=== PATIENT | female | born 1985 | race Two or more races ===

== ENCOUNTER 2023-03-20 08:14 | Outpatient (OUT) | payer OTHER, SELFPAY ==
[2023-03-20 08:49] LABS: Estimated Average Glucose 200 mg/dL; Glycohemoglobin A1C 8.6 % (4.5-6.2)
== END 2023-03-20 08:15 ==
PROVIDERS: PCP Nurse Practitioner Family; Visit Provider Nurse Practitioner Family
DX: E11.9 Type 2 diabetes mellitus without complications (principal)
CPT/HCPCS: 36415; 83036

== ENCOUNTER 2023-07-17 16:56 | Emergency (ER) | payer OTHER, SELFPAY ==
[2023-07-17 16:59] VITALS: BP 149/86; PULSE 83; RESP 16; TEMP 37.1; O2SAT 98; BMI 33.5
--- NOTE | 2023-07-17 17:02 | XR_ITS ---
The [address] [address] Patient Name: CALEB LE MRN: [id number] date: 1985 Sex: F Assigned Patient Location: ED.MAIN Current Patient Location: ED.MAIN Accession/Order Number: [id number] Exam Date: 07/17/2023 17:05 Report Date: 07/17/2023 17:26 At the request of: CHERELLE CORTEZ Procedure: XR finger RT min 2V EXAM: XR finger RT min 2V HISTORY: Crush injury COMPARISON: None. TECHNIQUE: 3 views FINDINGS: No osseous lesion, fracture, dislocation or subluxation. Joint spaces are normal. No visualized effusion. No visualized soft tissue edema. XR/XR finger RT min 2V IMPRESSION: Normal x-rays Electronically authenticated by: TANJA KAMARA Date: 07/17/2023 17:26
--- NOTE | 2023-07-17 17:20 | ED.UPPEXIN1 ---
HPI - Extremity Injury (Upper) General Chief Complaint: Extremity Injury, Upper Stated Complaint: INJURED R HAND AT WORK Time Seen by Provider: 07/17/23 17:02 Source: patient Mode of arrival: walk-in Limitations: no limitations History of Present Illness HPI narrative: patient is a 38-year-old female who is right-hand dominant who presents to the emergency department for the evaluation of an injury to the right middle fingertip that occurred at 9 AM this morning at work. She states that she dropped a piece of machinery and her finger got caught between it and another object. She has developed bruising and swelling of the fat pad of the right middle fingertip. No swelling or bruising noted to the fingernail. No lacerations or abrasions. She is not concerned for . No medications were taken prior to arrival. Related Data Previous Rx's Medication Instructions Recorded naproxen sodium 550 mg tablet 550 mg PO BID PRN pain #10 tabs 07/17/23 Allergies Allergy/AdvReac Type Severity Reaction Status Date / Time erythromycin base AdvReac Intermediate Rash Verified 07/17/23 17:02 Review of Systems ROS Constitutional Denies: fever or chills Respiratory Denies: shortness of breath Gastrointestinal Denies: nausea or vomiting Musculoskeletal Denies: back pain Integumentary/Breast Denies: rash Neurological Denies: headache Hematologic/Lymphatic Denies: easy bruising [facility] Social History Smoking status: Never smoker Exam Narrative Exam Narrative: Gen.: Awake, alert, in no distress Head: Normocephalic, atraumatic ENT: Moist mucous membranes Respiratory: No respiratory distress Extremities: Moves extremities equally, right middle fingertip with ecchymosis and mild edema noted on the palmar aspect of the fingertip at the fat pad. Normal flexion and extension at the DIP and PIP joints. No subungual hematoma or fingernail injury noted. No abrasions or lacerations. Psych: Normal mood and affect Neuro: No focal neuro deficit Skin: Warm, dry, intact Constitutional Vital Signs, click to edit/add: Last Vital Signs Temp 98.8 F 07/17/23 16:59 Pulse 88 07/17/23 17:49 Resp 16 07/17/23 17:49 BP 138/90 07/17/23 17:49 Pulse Ox 99 10/07/23 17:49 O2 Del Method Room Air 07/17/23 17:49 Course Vital Signs Vital signs: Vital Signs Temperature 98.8 F 07/17/23 16:59 Pulse Rate 83 07/17/23 16:59 Respiratory Rate 16 07/17/23 16:59 Blood Pressure 149/86 H 07/17/23 16:59 Pulse Oximetry 98 07/17/23 16:59 Oxygen Delivery Method Room Air 07/17/23 16:59 Temperature 98.8 F 07/17/23 16:59 Pulse Rate 88 07/17/23 17:49 Respiratory Rate 16 07/17/23 17:49 Blood Pressure 138/90 07/17/23 17:49 Pulse Oximetry 99 07/17/23 17:49 Oxygen Delivery Method Room Air 07/17/23 17:49 MDM - Extremity Injury (Upper) MDM Narrative Medical decision making narrative: x-rays of the finger with no evidence of fracture or dislocation. Patient treated with NSAIDs in the Emergency Room. She is placed in a finger splint, she remains neurovascularly intact at discharge. Rest, ice, elevate. Follow-up with occupational health and return to the Emergency Room if symptoms change or worsen. Medical Records Attestation: I reviewed the patient's medical records. Imaging Data XR finger: Attestation: I personally reviewed and interpreted this imaging study as follows: My impression: no fracture, dislocation, soft tissue abnormality. Imaging reviewed by attending physician Discharge Plan Discharge Chief Complaint: Extremity Injury, Upper Clinical Impression: Contusion of finger of right hand, Crushing injury of finger of right hand Patient Disposition: Home, Self-Care Time of Disposition Decision: 17:24 Condition: Good Prescriptions / Home Meds: New naproxen sodium 550 mg tablet 550 mg PO BID PRN (Reason: pain) Qty: 10 0RF Instructions: Contusion in Adults (ED), Crush Injury (ED) Additional Instructions: Finger splint for 3-5 days as needed for comfort Stand Alone Forms: Portal Instructions Referrals: [facility] [Outside] - As soon as possible Discharge Date/Time: 07/17/23 17:51
[2023-07-17] MEDS: KETOROLAC TROMETHAMINE 10 MG TABLET PO (17:29)
[2023-07-17 17:49] VITALS: BP 138/90; PULSE 88; RESP 16; O2SAT 99
== END 2023-07-17 17:51 | disposition home or self-care (01) ==
PROVIDERS: Emergency Provider Emergency Medicine; PCP Nurse Practitioner Family
DX: S60.031A Contusion of right middle finger without damage to nail, initial encounter (principal); S67.192A Crushing injury of right middle finger, initial encounter; W23.0XXA Caught, crushed, jammed, or pinched between moving objects, initial encounter
CPT/HCPCS: 29130; 73140; 99284

== ENCOUNTER 2023-10-30 05:22 | Emergency (ER) | payer BC, SELFPAY ==
[2023-10-30 05:25] VITALS: BP 149/93; PULSE 87; RESP 18; TEMP 36.6; O2SAT 97; BMI 32.6
--- NOTE | 2023-10-30 05:35 | PC.NURSE ---
Pt complains of a persistent cough for the past 2 weeks, now is coughing up white-matthew phlegm for the past few days. Has not tried any OTC medications but tea and honey did not help. Covid and flu swab obtained. Lungs sound clear.
[2023-10-30 05:52] LABS: Influenza Virus A Antigen Negative; Influenza Virus B Antigen Negative; Internal Control Within Normal Limits; SARS-CoV-2 Ag NEGATIVE (NEGATIVE)
--- NOTE | 2023-10-30 06:04 | ED.URI1 ---
HPI - URI/Sore Throat General Chief Complaint: Upper Respiratory Infection Stated Complaint: CONGESTION, COUGH Time Seen by Provider: 10/30/23 05:24 Source: patient Limitations: no limitations History of Present Illness HPI Narrative: [age] female presents for two weeks of cough. She states she has had a lot of phlegm in her throat. No known fever. No vomiting or diarrhea. Related Data Home Medications Medication Instructions Recorded Confirmed metformin 500 mg tablet 500 mg PO BID 10/30/23 10/30/23 Previous Rx's Medication Instructions Recorded albuterol sulfate 90 mcg/actuation 2 inh inhalation Q4H PRN shortness 10/30/23 aerosol inhaler of breath or wheezing #8.5 grams benzonatate 100 mg capsule 100 mg PO TID PRN cough #20 caps 10/30/23 loratadine 5 mg-pseudoephedrine ER 1 tab PO Q12H PRN nasal congestion 10/30/23 120 mg tablet,extended #20 tabs release,12hr (Claritin-D 12 Hour) Allergies Allergy/AdvReac Type Severity Reaction Status Date / Time erythromycin base AdvReac Intermediate Rash Verified 10/30/23 05:27 Review of Systems ROS Narrative A ten point review of systems is negative except as noted above. PFSH PFS Social History Smoking status: Never smoker Exam Narrative Exam Narrative: Nurses note and vital signs reviewed and patient is not hypoxic. General: The patient appears well and in no apparent distress. Patient is resting comfortably on cart. Skin: Warm, dry, no pallor noted. There is no rash noted. Head: Normocephalic, atraumatic Eye: Normal conjunctiva, no drainage Ears, Nose, Mouth, and Throat: oral mucosa is moist. Nares patent. Cardiovascular: Regular Rate and Rhythm Respiratory: Patient is in no distress, no accessory muscle use, lungs are clear to auscultation, no wheezing, rales or rhonchi Back: non-tender GI: soft and nontender Musculoskeletal: The patient has no evidence of calf tenderness, no pitting edema, symmetrical pulses noted bilaterally Neurological: A&O, normal speech Psychiatric: Cooperative Constitutional Vital Signs, click to edit/add: Last Vital Signs Temp 97.8 F 10/30/23 05:25 Pulse 87 10/30/23 05:25 Resp 18 10/30/23 05:25 BP 149/93 H 10/30/23 05:25 Pulse Ox 97 10/30/23 05:25 O2 Del Method Room Air 10/30/23 05:25 Course Vital Signs Vital signs: Vital Signs Temperature 97.8 F 10/30/23 05:25 Pulse Rate 87 10/30/23 05:25 Respiratory Rate 18 10/30/23 05:25 Blood Pressure 149/93 H 10/30/23 05:25 Pulse Oximetry 97 10/30/23 05:25 Oxygen Delivery Method Room Air 10/30/23 05:25 Temperature 97.8 F 10/30/23 05:25 Pulse Rate 87 10/30/23 05:25 Respiratory Rate 18 10/30/23 05:25 Blood Pressure 149/93 H 10/30/23 05:25 Pulse Oximetry 97 10/30/23 05:25 Oxygen Delivery Method Room Air 10/30/23 05:25 MDM - URI/Sore Throat MDM Narrative Medical decision making narrative: Covid and influenza are negative and she'll be treated symptomatically. My clinical impression is that she has a viral upper respiratory infection. Antibiotic not indicated. Treatment diagnosis and follow-up were discussed with the patient. Differential Diagnosis Differential diagnosis: Likely upper respiratory infection, viral infection, influenza and other (Covid) Lab Data Attestation: I reviewed the patient's lab results. Labs: Lab Results 10/30/23 Range/Units 05:27 Influenza Type A Ag Negative Influenza Type B Ag Negative SARS-CoV-2 Ag (CV2AG) Negative (NEGATIVE) Discharge Plan Discharge Chief Complaint: Upper Respiratory Infection Clinical Impression: Upper respiratory infection Patient Disposition: Home, Self-Care Time of Disposition Decision: 06:03 Condition: Good Mode of Transportation: Private Vehicle Prescriptions / Home Meds: New benzonatate 100 mg capsule 100 mg PO TID PRN (Reason: cough) Qty: 20 0RF Claritin-D 12 Hour 5-120 mg tablet extended release 12 hr 1 tab PO Q12H PRN (Reason: nasal congestion) Qty: 20 0RF albuterol sulfate 90 mcg/actuation HFA aerosol inhaler 2 inh inhalation Q4H PRN (Reason: shortness of breath or wheezing) Qty: 8.5 0RF No Action metformin 500 mg tablet 500 mg PO BID Instructions: Upper Respiratory Infection (ED), Viral Syndrome (ED) Stand Alone Forms: Portal Instructions Referrals: JOHNSON KRAMER [Primary Care Provider] - 1 week
== END 2023-10-30 06:11 | disposition home or self-care (01) ==
PROVIDERS: Emergency Provider Emergency Medicine; PCP Nurse Practitioner Family
DX: J06.9 Acute upper respiratory infection, unspecified (principal); Z79.84 Long term (current) use of oral hypoglycemic drugs; Z20.822 Contact with and (suspected) exposure to COVID-19
CPT/HCPCS: 87804; 87811; 99283

== ENCOUNTER 2024-04-05 19:49 | Emergency (ER) | payer OTHER, SELFPAY ==
[2024-04-05 19:55] VITALS: BP 134/80; PULSE 91; TEMP 37; O2SAT 98; BMI 33.1
--- OUTSIDE RECORDS SUMMARY | 2024-04-05 19:56 | XMS_ITS | CCD ---
Author Organization [facility] Care Team Providers Care Supervisor Inspection Name Role Phone REQUEST, DR NONE LISTED Primary Care Unavaila ble PAY ., DR KONG Admitting Unavailable PAY ., DR KONG Attending Unavailable PAY ., DR KONG Consulting Unavailable NIA, JOHNSON Admitting Unavailable NIA, JOHNSON Attending Unavailable NIA, JOHNSON Primary Care Unavailable NIA, JOHNSON Consulting Unavailable NIA, JOHNSON Admitting Unavailable NIA, JOHNSON Attending Unavailable NIA, JOHNSON Primary Care Unavailable ADRI, PAVAN Admitting Unavailable ADRI, PAVAN Attending Unavailable NIA, JOHNSON Primary Care Unavailable ADRI, PAVAN Consulting Unavailable NIA, JOHNSON Admitting Unavailable NIA, JOHNSON Attending Unavailable NIA, JOHNSON Primary Care Unavailable NIA, JOHNSON Consulting Unavailable HOY ., DR GOLDMAN Admitting Unavailable HOY ., DR GOLDMAN Attending Unavailable NIA, JOHNSON Primary Care Unavailable HOY ., DR GOLDMAN Consulting Unavailable BRAD, CHARLIE Admitting Unavailable BRAD, CHARLIE Attending Unavailable REQUEST, NONE LISTED Primary Care Unavaila ble BRAD, CHARLIE Consulting Unavailable Unavailable Primary Care Provider Unavailabl e Allergies Allergy Classification Reported Allergen(s) Allergy Type Date of Onset Reaction(s) Facility (1 source) Erythromycin Drug Allergy 05-31-2013 [facility] Repository Problems Active Problems Problem Classification Problem Date Documented Da te Episodic/Chronic Acute bronchitis (1 source) Acute bronchitis due to other specified organisms; Translations: [ACUTE BRONCHITIS D/T SPEC ORGANISMS] Onset: 10-20-2022 Episodic Diabetes mellitus with complications (4 sources) Type 2 diabetes mellitus with hyperglycemia; Translations: [TYPE 2 DM W/HYPERGLYCEMIA] Onset: 08-19-2022 Chronic Diabetes mellitus without complication (4 sources) Type 2 diabetes mellitus without complications; Translations: [TYPE 2 DM WITHOUT COMPLICATIONS] Onset: 11-27-2022 Chronic Diabetes mellitus without complication (1 source) Other abnormal glucose; Translations: [OTHER ABNORMAL GLUCOSE] Onset: 12-02-2022 Episodic Essential hypertension (1 source) Essential (primary) hypertension; Translations: [ESSENTIAL PRIMARY HYPERTENSION] Onset: 08-21-2022 Chronic Nonspecific chest pain (4 sources) Other chest pain; Translations: [OTHER CHEST PAIN] Onset: 12-28-2022 Episodic Other screening for suspected conditions (not mental disorders or infectious disease) (4 sources) Encounter for screening for malignant neoplasm of cervix; Translations: [ENC SCREENING MALIG NEOPLASM CERV] Onset: 12-08-2022 Episodic Unclassified (3 sources) CONTACT W/AND (SUSP) EXPOS COVID-19; Translations: [CONTACT W/AND (SUSP) EXPOS COVID-19] Onset: 10-20-2022 Unclassified (1 source) PT NONCOMP OTH MED TX/REG UNS REASN; Translations: [PT NONCOMP OTH MED TX/REG UNS REASN] Onset: 08-21-2022 Past or Other Problems Problem Classification Problem Date Documented Da te Episodic/Chronic Anal and rectal conditions (4 sources) Other specified diseases of anus and rectum; Translations: [OTHER SPEC DISEASES ANUS AND RECTUM] Onset: 07-20-2022 Episodic Fluid and electrolyte disorders (1 source) Dehydration; Translations: [DEHYDRATION] Onset: 08-21-2022 Episodic Other aftercare (1 source) 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 . Normal [facility] Comment on above: Result Comment: Perf ormed at: WB Performed By: #### [id number] #### [facility] [address] [place] [address] Dr. Isaías Plunkett Age Gdln ACOG Testing 30-65 Normal [facility] Comment on above: Performed By: #### [id number] #### [facility] [address] [address] [address] Isaías Plunkett DIAGNOSIS: Comment Normal [facility] Comment on above: Result Comment: NEGA TIVE FOR INTRAEPITHELIAL LESION OR MALIGNANCY. Performed at: WB Performed By: #### [id number] #### [facility] [address] [place] [address] Dr. Isaías Plunkett HPV Aptima Negative Normal Negative [facility] Comment on above: Result Comment: This nucleic acid amplification test detects fourteen high-risk HPV types (16,18,31,33,35,39,45,51,52,56,58,59,66,68) without differentiation. Performed at: =G Performed By: #### [id number] #### [facility] [address] [place] [address] Dr. Isaías Plunkett HPV Genotype Reflex Comment Normal [facility] Comment on above: Result Comment: Crit eria not met, HPV Genotype not performed. Performed at: WB Performed By: #### [id number] #### [facility] [address] [place] [address] Dr. Isaías Plunkett Methodology: Comment Normal [facility] Comment on above: Result Comment: This liquid based ThinPrep(R) pap test was screened with the use of an image guided system. Performed at: WB Performed By: #### [id number] #### [facility] [address] [place] [address] Dr. Isaías Plunkett Note: Comment Normal [facility] Comment on above: Result Comment: The Pap smear is a screening test designed to aid in the detection of premalignant and malignant conditions of the uterine cervix. It is not a diagnostic procedure and should not be used as the sole means of detecting cervical cancer. Both false-positive and false-negative reports do occur. . Performed at: WB Performed By: #### [id number] #### [facility] [address] [place] [address] Dr. Isaías Plunkett Performed by: Comment Normal [facility] Comment on above: Result Comment: Dillon Gonsalez, Rn Case Manager (ASCP) Performed at: WB Performed By: #### [id number] #### [facility] [address] [place] [address] Dr. Isaías Plunkett Specimen adequacy: Comment Normal [facility] Comment on above: Result Comment: Sati sfactory for evaluation. Endocervical and/or squamous metaplastic cells (endocervical component) are present. Performed at: WB Performed By: #### [id number] #### [facility] [address] [place] [address] Dr. Isaías Plunkett GLYCOHEMOGLOBIN A1Con 2022 ADA RECOMMENDATION SEE BELOW Normal [facility] Comment on above: Result Comment: ADA RECOMMENDED LIMIT 4.0 - 6.0 ADA THERAPEUTIC TARGET < 7.0 ACTION SUGGESTED > 7.0 Performed By: #### P HVEN #### [facility] [address] [place] [address] Dr. Isaías Plunkett Glucose [Mass/Vol] 197 mg/dL Normal [facility] Comment on above: Performed By: #### P HVEN #### [facility] [address] [place] [address] Dr. Isaías Plunkett HbA1c (Bld) [Mass fraction] 8.5 % Critically high 4.5-6.2 [facility] Comment on above: Performed By: #### P HVEN #### [facility] [address] [place] [address] Dr. Isaías Plunkett Covid-19 PCR ([facility])on SARS-CoV-2 (COVID-19) RNA CHIOMA+probe Ql (Unsp spec) Not detected Normal NOT DETECTED [facility] Comment on above: Result Comment: When diagnostic testing is negative, the possibility of a false negative should be considered in the context of a patient's recent exposures and the presence of clinical signs and symptoms consistent with SARS-CoV-2. This test is not yet approved or cleared by the [place] FDA. When there are no FDA-approved or cleared tests available, and other criteria are met, FDA can make tests available under an emergency access mechanism called an Emergency Use Authorization (EUA). The EUA for this test is supported by the [place] of Health and Human Service's declaration that circumstances exist to justify the emergency use of in vitro diagnostics for the detection and/or diagnosis of the virus that causes COVID-19. This EUA will remain in effect for the duration of the COVID-19 declaration justifying emergency of IVDs, unless it is terminated or revoked by the FDA (after which the test may no longer be used). Performed By: #### P HVEN #### [facility] [address] [place] [address] Dr. Isaías Plunkett INFLUENZA A AND B AGon 10-19 INFLUANE SEE BELOW Normal [facility] Comment on above: Result Comment: Nega tive for Flu A protein angiten. Infection due to Flu A cannot be ruled out. Flu A angiten in the sample may be below the detection limit of the test. Performed By: #### I NFLUAB #### [facility] [address] [place] [address] Dr. Isaías Plunkett INFLUBNEG SEE BELOW Normal [facility] Comment on above: Result Comment: Nega tive for Flu B protein antigen. Infection due to Flu B cannot be ruled out. Flu B antigen in the sample may be below the detection limit of the test. Performed By: #### I NFLUAB #### [facility] [address] [place] [address] Dr. Isaías Plunkett INFLUENZA A AG Negative Normal NEGATIVE SEE COMMENT [facility] Comment on above: Performed By: #### I NFLUAB #### [facility] [address] [place] [address] Dr. Isaías Plunkett INFLUENZA B AG Negative Normal NEGATIVE SEE COMMENT [facility] Comment on above: Performed By: #### I NFLUAB #### [facility] [address] [place] [address] Dr. Isaías Plunkett INSULINon 09-10-2022 Insulin 36.6 uIU/mL Critically high 2.6-24.9 [facility] Comment on above: Performed By: #### [id number] #### [facility] [address] [place] [address] Dr. Isaías Plunkett CBC AUTO DIFFon 09-09-2022 BASO # 0.0 103/ul Normal 0.0-0.1 [facility] Comment on above: Performed By: #### C BC #### [facility] [address] [place] [address] Dr. Isaías Plunkett Basophils/100 WBC (Bld) 0.4 % Normal 0.2-2.0 [facility] Comment on above: Performed By: #### C BC #### [facility] [address] [place] [address] Dr. Isaías Plunkett EO # 0.2 103/ul Normal 0.0-0.7 [facility] Comment on above: Performed By: #### C BC #### [facility] [address] [place] [address] Dr. Isaías Plunkett Eosinophils/100 WBC (Bld) 2.0 % Normal 0.9-7.0 [facility] Comment on above: Performed By: #### C BC #### [facility] [address] [place] [address] Dr. Isaías Plunkett Erythrocyte distribution width (RBC) [Ratio] 13.2 % Normal 11.0-15.0 [facility] Comment on above: Performed By: #### C BC #### [facility] [address] [place] [address] Dr. Isaías Plunkett Hematocrit (Bld) [Volume fraction] 39.0 % Normal 36.0-48.0 [facility] Comment on above: Performed By: #### C BC #### [facility] [address] [place] [address] Dr. Isaías Plunkett Hemoglobin (Bld) [Mass/Vol] 12.9 g/dL Normal 12.0-16.0 [facility] Comment on above: Performed By: #### C BC #### [facility] [address] [place] [address] Dr. Isaías Plunkett IG # 0.02 10e3/ul Normal 0.00-0.03 [facility] Comment on above: Performed By: #### C BC #### [facility] [address] [place] [address] Dr. Isaías Plunkett IG % 0.2 % Normal 0.0-0.5 [facility] Comment on above: Performed By: #### C BC #### [facility] [address] [place] [address] Dr. Isaías Plunektt LYMPH # 3.2 103/ul Normal 1.2-3.8 [facility] Comment on above: Performed By: #### C BC #### [facility] [address] [place] [address] Dr. Isaías Plunkett Lymphocytes/100 WBC (Bld) 40.0 % Normal 20.5-60.0 [facility] Comment on above: Performed By: #### C BC #### [facility] [address] [place] [address] Dr. Isaías Plunkett MANUAL DIFF REQ NO Normal [facility] Comment on above: Performed By: #### C BC #### [facility] [address] [place] [address] Dr. Isaías Plunkett MCH (RBC) [Entitic mass] 27.1 pg Normal 26.7-34.0 [facility] Comment on above: Performed By: #### C BC #### [facility] [address] [place] [address] Dr. Isaías Plunkett MCHC (RBC) [Mass/Vol] 33.1 g/dL Normal 29.9-35.2 [facility] Comment on above: Performed By: #### C BC #### [facility] [address] [place] [address] Dr. Isaías Plunkett MCV (RBC) [Entitic vol] 81.9 fL Normal 81.0-99.0 [facility] Comment on above: Performed By: #### C BC #### [facility] [address] [place] [address] Dr. Isaías Plunkett MONO # 0.5 103/ul Normal 0.3-0.8 [facility] Comment on above: Performed By: #### C BC #### [facility] [address] [place] [address] Dr. Isaías Plunkett Monocytes/100 WBC (Bld) 6.2 % Normal 1.7-12.0 [facility] Comment on above: Performed By: #### C BC #### [facility] [address] [place] [address] Dr. Isaías Plunkett NEUT # 4.1 103/ul Normal 1.4-6.5 [facility] Comment on above: Performed By: #### C BC #### [facility] [address] [place] [address] Dr. Isaías Plunkett Neutrophils/100 WBC (Bld) 51.2 % Normal 43.0-75.0 [facility] Comment on above: Performed By: #### C BC #### [facility] [address] [place] [address] Dr. Isaías Plunkett Platelet mean volume (Bld) [Entitic vol] 9.5 fL Normal 9.5-13.5 [facility] Comment on above: Performed By: #### C BC #### [facility] [address] [place] [address] Dr. Isaías Plunkett PLT 275 103/ul Normal 150-450 [facility] Comment on above: Performed By: #### C BC #### [facility] [address] [place] [address] Dr. Isaías Plunkett RBC 4.76 106/ul Normal 4.20-5.40 [facility] Comment on above: Performed By: #### C BC #### [facility] [address] [place] [address] Dr. Isaías Plunkett WBC 8.1 103/ul Normal 4.0-11.0 [facility] Comment on above: Performed By: #### C BC #### [facility] [address] [place] [address] Dr. Isaías Plunkett FREE THYROXINE INDEX T7on FTI 2.05 Normal 1.30-4.50 [facility] Comment on above: Performed By: #### P HVEN #### [facility] [address] [place] [address] Dr. Isaías Plunkett T3U 31.0 % Normal 30.0-39.0 [facility] Comment on above: Performed By: #### P HVEN #### [facility] [address] [place] [address] Dr. Isaías Plunkett T4 [Mass/Vol] 6.60 ug/dL Normal 4.80-13.90 [facility] Comment on above: Performed By: #### P HVEN #### [facility] [address] [place] [address] Dr. Isaías Plunkett GLYCOHEMOGLOBIN A1Con 2021 ADA RECOMMENDATION SEE BELOW Normal [facility] Comment on above: Result Comment: ADA RECOMMENDED LIMIT 4.0 - 6.0 ADA THERAPEUTIC TARGET < 7.0 ACTION SUGGESTED > 7.0 Performed By: #### A 1C #### [facility] [address] [place] [address] Dr. Isaías Plunkett Glucose [Mass/Vol] 226 mg/dL Normal [facility] Comment on above: Performed By: #### A 1C #### [facility] [address] [place] [address] Dr. Isaías Plunkett HbA1c (Bld) [Mass fraction] 9.5 % Critically high 4.5-6.2 [facility] Comment on above: Performed By: #### A 1C #### [facility] [address] [place] [address] Dr. Isaías Plunkett IRONon 09-09-2022 Iron [Mass/Vol] 42.0 ug/dL Critically low 50.0-170.0 [facility] Comment on above: Performed By: #### P HVEN #### [facility] [address] [place] [address] Dr. Isaías Plunkett LIPID PROFILEon 09-09-2022 CHOL-HDL RATIO NORM SEE BELOW Normal [facility] Comment on above: Result Comment: 3.3 - 4.4 LOW RISK 4.4 - 7.1 AVERAGE RISK 7.1 - 11.0 MODERATE RISK >11.0 HIGH RISK Performed By: #### P HVEN #### [facility] [address] [place] [address] Dr. Isaías Plunkett Cholesterol [Mass/Vol] 199 mg/dL Normal <=200 [facility] Comment on above: Performed By: #### P HVEN #### [facility] [address] [place] [address] Dr. Isaías Plunkett Cholesterol in HDL [Mass/Vol] 38 mg/dL Critically low 40-60 [facility] Comment on above: Performed By: #### P HVEN #### [facility] [address] [address] [address] Isaías Plunkett Cholesterol in LDL [Mass/Vol] 124.8 mg/dL Normal [facility] Comment on above: Performed By: #### P HVEN #### [facility] [address] [address] [address] Isaías Plunkett Cholesterol.total/Cho lesterol in HDL [Mass ratio] 5.2 {ratio} Normal [facility] Comment on above: Performed By: #### P HVEN #### [facility] [address] [address] [address] Isaías Plunkett HDL NORMAL > or = 60 mg/dl - LO W CARDIOVASCULAR RISK <40 mg/dl - HIGH CARDIOVASCULAR RISK Normal [facility] Comment on above: Performed By: #### P HVEN #### [facility] [address] [address] [address] Isaías Plunkett LDL CALC NORMAL SEE BELOW Normal [facility] Comment on above: Result Comment: <100 mg/dl OPTIMAL 100 - 129 mg/dl NEAR OR ABOVE OPTIMAL 130 - 159 mg/dl BORDERLINE HIGH 160 - 189 mg/dl HIGH >190 mg/dl VERY HIGH Performed By: #### P HVEN #### [facility] [address] [address] [address] Isaías Plunkett Triglyceride [Mass/Vol] 181 mg/dL Critically high <=150 [facility] Comment on above: Performed By: #### P HVEN #### [facility] [address] [address] [address] Isaías Plunkett VLDL CALC 36.2 mg/dL Normal [facility] Comment on above: Performed By: #### P HVEN #### [facility] [address] [address] [address] Isaías Plunkett PROF 14(COMP METB)on 022 Albumin [Mass/Vol] 3.6 g/dL Normal 3.4-5.0 [facility] Comment on above: Performed By: #### P HVEN #### [facility] [address] [address] [address] Isaías Plunkett Albumin/Globulin [Mass ratio] 0.9 {ratio} Normal [facility] Comment on above: Performed By: #### P HVEN #### [facility] [address] [address] [address] Isaías Plunkett ALP [Catalytic activity/Vol] 54 U/L Normal 46-116 [facility] Comment on above: Performed By: #### P HVEN #### [facility] [address] [address] [address] Isaías Plunkett ALT [Catalytic activity/Vol] 64 U/L Critically high 14-59 [facility] Comment on above: Performed By: #### P HVEN #### [facility] [address] [place] [address] Dr. Isaías Plunkett Anion gap [Moles/Vol] 13.0 mmol/L Normal [facility] Comment on above: Performed By: #### P HVEN #### [facility] [address] [place] [address] Dr. Isaías Plunkett AST [Catalytic activity/Vol] 17 U/L Normal 15-37 [facility] Comment on above: Performed By: #### P HVEN #### [facility] [address] [place] [address] Dr. Isaías Plunkett Bilirubin [Mass/Vol] 0.2 mg/dL Normal 0.2-1.0 [facility] Comment on above: Performed By: #### P HVEN #### [facility] [address] [address] [address] Isaías Plunkett Calcium [Mass/Vol] 8.8 mg/dL Normal 8.5-10.1 [facility] Comment on above: Performed By: #### P HVEN #### [facility] [address] [place] [address] Dr. Isaías Plunkett Chloride [Moles/Vol] 100 mmol/L Normal 98-107 [facility] Comment on above: Performed By: #### P HVEN #### [facility] [address] [address] [address] Isaías Plunkett CO2 [Moles/Vol] 26.2 mmol/L Normal 21.0-32.0 [facility] Comment on above: Performed By: #### P HVEN #### [facility] [address] [place] [address] Dr. Isaías Plunkett Creatinine [Mass/Vol] 0.59 mg/dL Normal 0.55-1.02 [facility] Comment on above: Performed By: #### P HVEN #### [facility] [address] [place] [address] Dr. Isaías Plunkett EGFR-AF BELIZEAN >60 Normal >=60 [facility] Comment on above: Performed By: #### P HVEN #### [facility] [address] [place] [address] Dr. sIaías Plunkett EGFR-NON AF BELIZEAN >60 Normal >=60 [facility] Comment on above: Performed By: #### P HVEN #### [facility] [address] [place] [address] Dr. Isaías Plunkett Globulin (S) [Mass/Vol] 4.0 g/dL Normal [facility] Comment on above: Performed By: #### P HVEN #### [facility] [address] [place] [address] Dr. Isaías Plunkett Glucose [Mass/Vol] 188 mg/dL Critically high 74-106 [facility] Comment on above: Performed By: #### P HVEN #### [facility] [address] [place] [address] Dr. Isaías Plunkett Potassium [Moles/Vol] 4.2 mmol/L Normal 3.5-5.1 [facility] Comment on above: Performed By: #### P HVEN #### [facility] [address] [place] [address] Dr. Isaías Plunkett Protein [Mass/Vol] 7.6 g/dL Normal 6.4-8.2 [facility] Comment on above: Performed By: #### P HVEN #### [facility] [address] [place] [address] Dr. Isaías Plunkett Sodium [Moles/Vol] 135 mmol/L Critically low 136-145 [facility] Comment on above: Performed By: #### P HVEN #### [facility] [address] [place] [address] Dr. Isaías Plunkett Urea nitrogen [Mass/Vol] 9.0 mg/dL Normal 7.0-18.0 [facility] Comment on above: Performed By: #### P HVEN #### [facility] [address] [place] [address] Dr. Isaías Plunkett Urea nitrogen/Creatinine [Mass ratio] 15.3 mg/mg Normal [facility] Comment on above: Performed By: #### P HVEN #### [facility] [facility] [address] [place] [address] Dr. Isaías Plunkett TSHon 09-09-2022 TSH 2.268 uIU/mL Normal 0.358-3.740 [facility] Comment on above: Performed By: #### P HVEN #### [facility] [address] [place] [address] Dr. Isaías Plunkett CBC AUTO DIFFon 08-19-2022 BASO # 0.0 103/ul Normal 0.0-0.1 [facility] Comment on above: Performed By: #### C BC #### [facility] [address] [place] [address] Dr. Isaías Plunkett Basophils/100 WBC (Bld) 0.3 % Normal 0.2-2.0 [facility] Comment on above: Performed By: #### C BC #### [facility] [address] [place] [address] Dr. Isaías Plunkett EO # 0.0 103/ul Normal 0.0-0.7 [facility] Comment on above: Performed By: #### C BC #### [facility] [address] [place] [address] Dr. Isaías Plunkett Eosinophils/100 WBC (Bld) 0.4 % Critically low 0.9-7.0 [facility] Comment on above: Performed By: #### C BC #### [facility] [address] [place] [address] Dr. Isaías Plunkett Erythrocyte distribution width (RBC) [Ratio] 13.3 % Normal 11.0-15.0 [facility] Comment on above: Performed By: #### C BC #### [facility] [address] [place] [address] Dr. Isaías Plunkett Hematocrit (Bld) [Volume fraction] 41.1 % Normal 36.0-48.0 [facility] Comment on above: Performed By: #### C BC #### [facility] [address] [place] [address] Dr. Isaías Plunkett Hemoglobin (Bld) [Mass/Vol] 13.6 g/dL Normal 12.0-16.0 [facility] Comment on above: Performed By: #### C BC #### [facility] [address] [place] [address] Dr. Isaías Plunkett IG # 0.02 10e3/ul Normal 0.00-0.03 [facility] Comment on above: Performed By: #### C BC #### [facility] [address] [place] [address] Dr. Isaías Plunkett IG % 0.3 % Normal 0.0-0.5 [facility] Comment on above: Performed By: #### C BC #### [facility] [address] [place] [address] Dr. Isaías Plunkett LYMPH # 1.2 103/ul Normal 1.2-3.8 [facility] Comment on above: Performed By: #### C BC #### [facility] [address] [place] [address] Dr. Isaías Plunkett Lymphocytes/100 WBC (Bld) 17.4 % Critically low 20.5-60.0 [facility] Comment on above: Performed By: #### C BC #### [facility] [address] [place] [address] Dr. Isaías Plunkett MANUAL DIFF REQ NO Normal [facility] Comment on above: Performed By: #### C BC #### [facility] [address] [place] [address] Dr. Isaías Plunkett MCH (RBC) [Entitic mass] 27.1 pg Normal 26.7-34.0 [facility] Comment on above: Performed By: #### C BC #### [facility] [address] [place] [address] Dr. Isaías Plunkett MCHC (RBC) [Mass/Vol] 33.1 g/dL Normal 29.9-35.2 [facility] Comment on above: Performed By: #### C BC #### [facility] [address] [place] [address] Dr. Isaías Plunkett MCV (RBC) [Entitic vol] 82.0 fL Normal 81.0-99.0 [facility] Comment on above: Performed By: #### C BC #### [facility] [address] [place] [address] Dr. Isaías Plunkett MONO # 0.4 103/ul Normal 0.3-0.8 [facility] Comment on above: Performed By: #### C BC #### [facility] [address] [place] [address] Dr. Isaías Plunkett Monocytes/100 WBC (Bld) 6.1 % Normal 1.7-12.0 [facility] Comment on above: Performed By: #### C BC #### [facility] [address] [place] [address] Dr. Isaías Plunkett NEUT # 5.1 103/ul Normal 1.4-6.5 [facility] Comment on above: Performed By: #### C BC #### [facility] [address] [place] [address] Dr. Isaías Plunkett Neutrophils/100 WBC (Bld) 75.5 % Critically high 43.0-75.0 [facility] Comment on above: Performed By: #### C BC #### [facility] [address] [place] [address] Dr. Isaías Plunkett Platelet mean volume (Bld) [Entitic vol] 9.4 fL Critically low 9.5-13.5 [facility] Comment on above: Performed By: #### C BC #### [facility] [address] [place] [address] Dr. Isaías Plunkett PLT 257 103/ul Normal 150-450 [facility] Comment on above: Performed By: #### C BC #### [facility] [address] [place] [address] Dr. Isaías Plunkett RBC 5.01 106/ul Normal 4.20-5.40 [facility] Comment on above: Performed By: #### C BC #### [facility] [address] [place] [address] Dr. Isaías Plunkett WBC 6.7 103/ul Normal 4.0-11.0 [facility] Comment on above: Performed By: #### C BC #### [facility] [address] [place] [address] Dr. Isaías Plunkett CULTURE URINEon 08-19-2022 CULTURE URINE Culture Observations : LIGHT GROWTH OF MIXED GENITAL AMI. NO POTENTIAL PATHOGENS SEEN. Normal [facility] Comment on above: Performed By: #### [id number] #### [facility] [address] [place] [address] Dr. Isaías Plunkett ER URINE PROFILEon 2 Bilirubin Ql (U) Negative Normal NEGATIVE [facility] Comment on above: Performed By: #### P REGU ERUR, UMICRO #### [facility] [address] [place] [address] Dr. Isaías Plunkett Clarity (U) CLEAR Normal CLEAR [facility] Comment on above: Performed By: #### P REGU, ERUR, UMICRO #### [facility] [address] [place] [address] Dr. Isaías Plunkett Color (U) YELLOW Normal YELLOW [facility] Comment on above: Performed By: #### P REGU, ERUR, UMICRO #### [facility] [address] [place] [address] Dr. Isaías MCFADDEN A micrscopic examination will be performed if indicated. Normal [facility] Comment on above: Performed By: #### P REGU, ERUR, UMICRO #### [facility] [address] [place] [address] Dr. Isaías Plunkett Glucose Ql (U) 500 mg/dl Abnormal NEGATIVE [facility] Comment on above: Performed By: #### P REGU, ERUR, UMICRO #### [facility] [address] [address] [address] Isaías Plunkett Hemoglobin Ql (U) Negative Normal NEGATIVE [facility] Comment on above: Performed By: #### P REGU, ERUR, UMICRO #### [facility] [address] [address] [address] Isaías Plunkett Ketones Ql (U) TRACE Abnormal NEGATIVE [facility] Comment on above: Performed By: #### P REGU, ERUR, UMICRO #### [facility] [address] [address] [address] Isaías Plunkett LEUKOCYTES TRACE Abnormal NEGATIVE [facility] Comment on above: Performed By: #### P REGU, ERUR, UMICRO #### [facility] [address] [address] [address] Isaías Plunkett Nitrite Ql (U) Negative Normal NEGATIVE [facility] Comment on above: Performed By: #### P REGU, ERUR, UMICRO #### [facility] [address] [address] [address] Isaías Plunkett pH (U) 6.0 [pH] Normal 5-9 [facility] Comment on above: Performed By: #### P REGU, ERUR, UMICRO #### [facility] [address] [address] [address] Isaías Plunkett SPEC GRAVITY 1.025 Normal 1.005-<=1.025 [facility] Comment on above: Performed By: #### P REGU, ERUR, UMICRO #### [facility] [address] [address] [address] Isaías Plunkett UA PROTEIN Negative Normal NEGATIVE/ TRACE [facility] Comment on above: Performed By: #### P REGU, ERUR, UMICRO #### [facility] [address] [address] [address] Isaías Plunkett UR MICRO IND INDICATED Normal [facility] Comment on above: Performed By: #### P REGU ERUR UMICRO #### [facility] [address] [address] [address] Isaías Plunkett Urobilinogen Qn (U) 2.0 {Katherine'U}/dL Abnormal 0.2 - 1. 0 [facility] Comment on above: Performed By: #### P REGUNATANAELR UMICRO #### [facility] [address] [address] [address] Isaías Plunkett LIPASEon 08-19-2022 Lipase [Catalytic activity/Vol] 49.0 U/L Critically low 73.0-393.0 [facility] Comment on above: Performed By: #### P HVEN #### [facility] [address] [place] [address] Dr. Isaías Plunkett PH VENOUS BLOODon 08-19-2022 PCO2 VENOUS 41.0 mmHg Normal 40.0-52.0 [facility] Comment on above: Performed By: #### P HVEN #### [facility] [address] [place] [address] Dr. Isaías Plunkett pH VENOUS 7.415 Normal 7.330-7.430 [facility] Comment on above: Performed By: #### P HVEN #### [facility] [address] [place] [address] Dr. Isaías Plunkett POINT OF CARE GLUCOSEon Glucose [Mass/Vol] 187 mg/dL Critically high 74-106 [facility] Comment on above: Performed By: #### P OCGLUC #### [facility] [address] [place] [address] Dr. Isaías Plunkett URon 08-19-2022 , QUAL Negative Normal NEGATIVE [facility] Comment on above: Performed By: #### P REGUNATANAELR UMICRO #### [facility] [address] [place] [address] Dr. Isaías Plunkett PROF 14(COMP METB)on 022 Albumin [Mass/Vol] 3.5 g/dL Normal 3.4-5.0 [facility] Comment on above: Performed By: #### P HVEN #### [facility] [address] [address] [address] Isaías Plunkett Albumin/Globulin [Mass ratio] 0.9 {ratio} Normal [facility] Comment on above: Performed By: #### P HVEN #### [facility] [address] [address] [address] Isaías Plunkett ALP [Catalytic activity/Vol] 54 U/L Normal 46-116 [facility] Comment on above: Performed By: #### P HVEN #### [facility] [address] [address] [address] Isaías Plunkett ALT [Catalytic activity/Vol] 82 U/L Critically high 14-59 [facility] Comment on above: Performed By: #### P HVEN #### [facility] [address] [address] [address] Isaías Plunkett Anion gap [Moles/Vol] 13.1 mmol/L Normal [facility] Comment on above: Performed By: #### P HVEN #### [facility] [address] [address] [address] Isaías Plunkett AST [Catalytic activity/Vol] 41 U/L Critically high 15-37 [facility] Comment on above: Performed By: #### P HVEN #### [facility] [address] [address] [address] Isaías Plunkett Bilirubin [Mass/Vol] 0.6 mg/dL Normal 0.2-1.0 [facility] Comment on above: Performed By: #### P HVEN #### [facility] [address] [address] [address] Isaías Plunkett Calcium [Mass/Vol] 8.9 mg/dL Normal 8.5-10.1 [facility] Comment on above: Performed By: #### P HVEN #### [facility] [address] [address] [address] Isaías Plunkett Chloride [Moles/Vol] 99 mmol/L Normal 98-107 [facility] Comment on above: Performed By: #### P HVEN #### [facility] [address] [address] [address] Isaías Plunkett CO2 [Moles/Vol] 25.5 mmol/L Normal 21.0-32.0 [facility] Comment on above: Performed By: #### P HVEN #### [facility] [address] [address] [address] Isaías Plunkett Creatinine [Mass/Vol] 0.66 mg/dL Normal 0.55-1.02 [facility] Comment on above: Performed By: #### P HVEN #### [facility] [address] [address] [address] Isaías Plunkett EGFR-AF BELIZEAN >60 Normal >=60 [facility] Comment on above: Performed By: #### P HVEN #### [facility] [address] [address] [address] Isaías Plunkett EGFR-NON AF BELIZEAN >60 Normal >=60 [facility] Comment on above: Performed By: #### P HVEN #### [facility] [address] [address] [address] Isaías Plunkett Globulin (S) [Mass/Vol] 3.9 g/dL Normal [facility] Comment on above: Performed By: #### P HVEN #### [facility] [address] [address] [address] Isaías Plunkett Glucose [Mass/Vol] 212 mg/dL Critically high 74-106 [facility] Comment on above: Performed By: #### P HVEN #### [facility] [address] [address] [address] Isaías Plunkett Potassium [Moles/Vol] 3.6 mmol/L Normal 3.5-5.1 [facility] Comment on above: Performed By: #### P HVEN #### [facility] [address] [address] [address] Isaías Plnukett Protein [Mass/Vol] 7.4 g/dL Normal 6.4-8.2 [facility] Comment on above: Performed By: #### P HVEN #### [facility] [address] [address] [address] Isaías Plunkett Sodium [Moles/Vol] 134 mmol/L Critically low 136-145 [facility] Comment on above: Performed By: #### P HVEN #### [facility] [address] [place] [address] Dr. Isaías Plunkett Urea nitrogen [Mass/Vol] 11.0 mg/dL Normal 7.0-18.0 [facility] Comment on above: Performed By: #### P HVEN #### [facility] [address] [place] [address] Dr. Isaías Plunkett Urea nitrogen/Creatinine [Mass ratio] 16.7 mg/mg Normal [facility] Comment on above: Performed By: #### P HVEN #### [facility] [address] [place] [address] Dr. Isaías Plunkett TROPONIN, HIGH SENSITIVITYon 08-19-2022 HSTROP 4.5 pg/mL Normal 4.0-51.3 [facility] Comment on above: Result Comment: CUT- OFF POINTS HAVE BEEN ESTABLISHED BASED ON THE FOURTH UNIVERSAL DEFINITIONS OF MYOCARDIAL INFARCTION. THE UPPER REFERENCE LIMIT (URL) OF TROPONIN, DEFINED THE 99TH PERCENTILE OF cTnI DISTRIBUTION IN A REFERENCE POPULATION, HAS BEEN CONFIRMED THE DECISION THRESHOLD FOR ND DIAGNOSIS. Performed By: #### P HVEN #### [facility] [address] [place] [address] Dr. Isaías Plunkett URINE MICROSCOPIC ONLYon BACTERIA TRACE Abnormal NONE SEEN [facility] Comment on above: Performed By: #### P REGNATANAEL ZarcoR UMICRO #### [facility] [address] [place] [address] Dr. Isaías Plunkett Bacteria identified Cx Nom (U) INDICATED Normal [facility] Comment on above: Performed By: #### P REGUNATANAELR UMICRO #### [facility] [address] [place] [address] Dr. Isaías Plunkett CAST NONE SEEN Normal NONE SEEN [facility] Comment on above: Performed By: #### P REGU ERUR UMICRO #### [facility] [address] [place] [address] Dr. Isaías Plunkett Crystals LM Nom (Urine sed) NONE SEEN Normal NONE SEEN [facility] Comment on above: Performed By: #### P REGU, ERUR, UMICRO #### [facility] [address] [address] [address] Isaías Plunkett Epithelial cells LM Ql (Urine sed) FEW Abnormal NONE SEEN /RARE [facility] Comment on above: Performed By: #### P REGU, ERUR, UMICRO #### [facility] [address] [address] [address] Isaías Plunkett MUCOUS NONE SEEN Normal NONE SEEN [facility] Comment on above: Performed By: #### P REGU, ERUR, UMICRO #### [facility] [address] [place] [address] Dr. Isaías Plunkett RBC 0-2 Normal 0-2 [facility] Comment on above: Performed By: #### P REGU, ERUR, UMICRO #### [facility] [address] [address] [address] Isaías Plunkett WBC 5-10 Abnormal NONE SEEN [facility] Comment on above: Performed By: #### P REGU, ERUR, UMICRO #### [facility] [address] [place] [address] Dr. Isaías Plunkett Encounters Encounter Date Encounter Type Care Provider Facility Start: 11-22-2023 Chart abstracting Pavan Johnson DO Work Phone: [facility] Start: 12-28-2022 End: 12-29-2022 ambulatory JOHNSON KRAMER Facility:[facility] Start: 12-08-2022 End: 12-08-2022 ambulatory PAVAN JOHNSON Facility:[facility] Start: 11-27-2022 End: 11-28-2022 ambulatory JOHNSON KRAMER Facility:[facility] Start: 10-19-2022 End: 10-19-[address] SUSI MALONEY . Facility:[facility] Start: 09-12-2022 Encounter for genera l adult medical examination without abnormal findings JOHNSON KRAMER [facility] Start: 09-09-2022 End: 09-10-2022 ambulatory JOHNSON KRAMER Facility:[facility] Start: 09-09-2022 End: 09-10-2022 Encounter for general adult medical examination without abnormal findings JOHNSON KRAMER Facility:[facility] Start: 08-19-2022 End: 08-19-2022 ambulatory NONE LISTED REQUEST Facility:[facility] Start: 07-20-2022 End: 07-21-2022 ambulatory CHARLIE SALINAS Facility:[facility] Plan of Treatment Date Care Activity Detail Author Start: 12-15-2023 End: 12-15-2023 Patient encounter procedure 12/15/2023 3:00 PM EST Office Visit [facility] [address] [address] Pavan Johnson, [address] [place] [address] [facility] Payers Date Payer Category Payer Unknown [id number] 2.16.84 [id number] 1987 Unknown [id number] 2.16.84 [id number] 1987 Unknown [id number] 2.16.84 [id number] 1987 Unknown [id number] 2.16.84 [id number] 1987 Unknown [id number] 2.16.84 [id number] 1987 Unknown [id number] 2.16.84 [id number] 1987 Unknown [id number] 2.16.84 [id number] 1959 Unknown [id number] 1959 Unknown [id number] 1959 Unknown [id number] Social History Date Type Detail Facility Start: 11-22-2023 Tobacco smoking stat [email or web address]-smoker [facility] History of tobacco use Current smoker [facility] History of tobacco use Cigarette Smoker [facility] Start: 11-22-2023 Alcohol intake Current drinke r of alcohol (finding) [facility] Start: 11-22-2023 Alcohol Comment occasional [facility] Start: 1985 Sex Assigned At Not on file N [facility] Gender identity Not on file [facility] are Summary Purpose Family History No Family History Records Found Advance Directives No Advanced Directives Records Found Additional Source Comments INFORMATION SOURCE (unrecogn ized section and content) DATE CREATED AUTHOR 01/05/2023 The [facility] FOR RECORDS PERTAINING TO PATIENTS WHO ARE OR HAVE BEEN ENROLLED IN A CHEMICAL DEPENDENCY/SUBSTANCEABUSE PROGRAM, SOME INFORMATION MAY BE OMITTED. This clinical summary was aggregated from multiple sources. Caution should be exercised in using it in the provision of clinical care. This summary normalizes information from multiple sources, and as a consequence, information in this document may materially change the coding, format and clinical context of patient data. In addition, data may be omitted in some cases. CLINICAL DECISIONS SHOULD BE BASED ON THE PRIMARY CLINICAL RECORDS. [facility] [employer] provides no warranty or guarantee of the accuracy or completeness of information in this document.
--- NOTE | 2024-04-05 20:14 | ED_ITS ---
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 The patient states that the shortness of breath and tightness in her chest has been present for the past 2 days. She states she tried to lay down to go to sleep but felt that she cannot take a deep breath and felt that she might stop breathing if she fell asleep. She does not smoke. She has not been checking her sugar because she does not know where her glucometer is. She was formally on metformin and another diabetic medication that she cannot recall the name of. She denies any runny nose, sore throat, nasal congestion or cough. She has no abdominal pain or back pain. She has no lower extremity pain or swelling. She is not having any vomiting or diarrhea. She formally had an albuterol MDI but does not have one any longer. Related Data Home Medications ?Medication ?Instructions ?Recorded ?Confirmed metformin 500 mg tablet 500 mg PO BID 10/30/23 10/30/23 no medications 04/05/24 Previous Rx's ?Medication ?Instructions ?Recorded albuterol sulfate 90 mcg/actuation 2 inh inhalation Q4H PRN shortness 10/30/23 aerosol inhaler of breath or wheezing #8.5 grams benzonatate 100 mg capsule 100 mg PO TID PRN cough #20 caps 10/30/23 loratadine 5 mg-pseudoephedrine ER 1 tab PO Q12H PRN nasal congestion 10/30/23 120 mg tablet,extended #20 tabs release,12hr (Claritin-D 12 Hour) Allergies Allergy/AdvReac Type Severity Reaction Status Date / Time erythromycin base AdvReac Intermediate Rash Verified 04/05/24 19:59 Review of Systems ROS Status of ROS 10 or more systems reviewed and unremark able except as noted in history and below PFSH PFSH Social History Smoking status: Never smoker Exam Narrative Exam Narrative: Vital signs and Nursing Notes reviewed: Patient is afebrile with a normal pulse, normal blood pressure, she is not hypoxic pulse ox 98% on room air General: Awake, alert, oriented, speaking in complete sentences, no respiratory distress HEENT: Normocephalic atraumatic, mucous membranes are moist and pink, eyes are clear, normal conjunctiva, vision is grossly intact, posterior pharynx is normal in appearance. Chest: Lungs are clear to auscultation with good air entry, there is no wheezing rhonchi or rales appreciated no accessory muscle use, patient is speaking in complete sentences-no chest wall tenderness to palpation CVS: Regular rate and rhythm S1-S2, no murmurs rubs or gallops, pulses are brisk and equal bilaterally ABD: Soft, nondistended, nontender, no rebound guarding or rigidity, bowel sounds are normal, no pulsatile masses appreciated Extremities: Moving all extremities, no lower extremity tenderness or swelling noted, negative Homans' sign, pulses are brisk and equal bilaterally Skin: Normal in appearance without rash,pallor, petechiae or purpura Neuro: No focal deficits Constitutional Vital Signs, click to edit/add: Last Vital Signs Temp 98.6 F 04/05/24 19:55 Pulse 83 04/05/24 21:06 Resp 16 04/05/24 21:06 BP 134/80 04/05/24 19:55 Pulse Ox 97 04/05/24 21:06 O2 Del Method Room Air 04/05/24 20:31 Course Vital Signs Vital signs: Vital Signs Temperature 98.6 F 04/05/24 19:55 Pulse Rate 91 H 04/05/24 19:55 Respiratory Rate 16 04/05/24 19:55 Blood Pressure 134/80 04/05/24 19:55 Pulse Oximetry 98 04/05/24 19:55 Oxygen Delivery Method Room Air 04/05/24 19:55 Temperature 98.6 F 04/05/24 19:55 Pulse Rate 83 04/05/24 21:06 Respiratory Rate 16 04/05/24 21:06 Blood Pressure 134/80 04/05/24 19:55 Pulse Oximetry 97 04/05/24 21:06 Oxygen Delivery Method Room Air 04/05/24 20:31 MDM - SOB/Dyspnea MDM Narrative Medical decision making narrative: This 38-year-old female, non-smoker with a history of diabetes 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 The patient feels that the symptoms are related to breathing fumes from her job. She denies any choking sensation. She has not had a cough. She states she cannot take a deep breath and she is afraid if she goes to sleep she will stop breathing. She states her chest feels tight but denies any rose chest pain. She has no abdominal pain, she has not had a fever. She has no nausea or vomiting. She has no lower extremity pain or swel ling. She has been out of her diabetic medications for the past 3 months because she has not had insurance but recently got health insurance and has a plan to see her family physician in the near future. She does not check her sugar because she has no idea where her glucometer is. An EKG was done upon arrival which is sinus rhythm at 85 bpm with no acute changes. She was given a DuoNeb treatment and on reevaluation she is feeling better with improved air entry and does not feel short of breath any longer. Cardiac workup was ordered. She has a normal white count and hemoglobin. Troponin is normal. Electrolytes are normal with the exception of a glucose of 304. This was discussed with her. She will be discharged home with an albuterol MDI. Her boyfriend states he has a nebulizer and request to take the tubing home from her nebulizer treatment and a prescription for nebulizer medications. She will also be restarted on her metformin until she can follow-up with her family physician. She also requests a note for work so that she can be off tomorrow. She was encouraged to wear a mask when she is working and or a respirator to help prevent exposure to fumes from the gases that she is exposed to when she is working as well as be compliant with her medications and follow the ADA diet. Lab Data Labs: Lab Results 04/05/24 Range/Units 20:19 WBC 8.8 (4.0-11.0) 10^3/uL RBC 4.45 (4.20-5.40) 10^6/uL Hgb 12.3 (12.0-16.0) g/dL Hct 38.0 (36.0-48.0) % MCV 85.4 (81.0-99.0) fL MCH 27.6 (26.7-34.0) pg MCHC 32.4 (29.9-35.2) g/dL RDW 12.8 (11.0-15.0) % Plt Count 284 (150-450) 10^3/uL MPV 9.8 (9.5-13.5) fL Neut % (Auto) 48.3 (43.0-75.0) % Lymph % (Auto) 43.3 (20.5-60.0) % [place] % (Auto) 5.9 (1.7-12.0) % Eos % (Auto) 1.8 (0.9-7.0) % Baso % (Auto) 0.5 (0.2-2.0) % Neut # (Auto) 4.3 (1.4-6.5) 10^3/uL Lymph # (Auto) 3.8 (1.2-3.8) 10^3/uL [place] # (Auto) 0.5 (0.3-0.8) 10^3/uL Eos # (Auto) 0.2 (0.0-0.7) 10^3/uL Baso # (Auto) 0.0 (0.0-0.1) 10^3/uL Abs Immat Gran (auto) 0.02 (0.00-0.03) 10^3/uL Imm/Tot Granulo (auto) 0.2 (0.0-0.5) % Sodium 136 (136-145) mmol/L Potassium 3.6 (3.5-5.1) mmol/L Chloride 101 (98-107) mmol/L Carbon Dioxide 24.8 (21.0-32.0) mmol/L Anion Gap 13.8 BUN 13.0 (7.0-18.0) mg/dL Creatinine 0.77 (0.55-1.02) mg/dL Est GFR ( Amer) >60 (>=60) Est GFR (Non-Af Amer) >60 (>=60) BUN/Creatinine Ratio 16.9 Glucose 304 H (74-106) mg/dL Calcium 9.0 (8.5-10.1) mg/dL Total Bilirubin 0.4 (0.2-1.0) mg/dL AST 18 (15-37) U/L ALT 63 H (14-59) U/L Alkaline Phosphatase 56 (46-116) U/L Troponin I High Sens <4.0 L (4.0-51.3) pg/mL Total Protein 7.1 (6.4-8.2) g/dL Albumin 3.4 (3.4-5.0) g/dL Globulin 3.7 g/dL Albumin/Globulin Ratio 0.9 ECG Data Attestation: I personally reviewed and interpreted this ECG as follows: (Sinus rhythm 85 bpm, indeterminate axis, no acute ST segment elevation or T wave inversion) Discharge Plan Discharge Stand Alone Forms: Portal Instructions Chief Complaint: Shortness of Breath/Dyspnea Clinical Impression: Reactive airway disease, Hyperglycemia Patient Disposition: Home, Self-Care Time of Disposition Decision: 21:17 Condition: Good Prescriptions / Home Meds: No Action metformin 500 mg tablet 500 mg PO BID benzonatate 100 mg capsule 100 mg PO TID PRN (Reason: cough) Qty: 20 0RF Claritin-D 12 Hour 5-120 mg tablet extended release 12 hr 1 tab PO Q12H PRN (Reason: nasal congestion) Qty: 20 0RF albuterol sulfate 90 mcg/actuation HFA aerosol inhaler 2 inh inhalation Q4H PRN (Reason: shortness of breath or wheezing) Qty: 8.5 0RF no medications Print Language: Setswana Instructions: How to Use a Metered-Dose Inhaler (ED), How to Use a Nebulizer (ED), Diabetic Hyperglycemia (ED) Referrals: JOHNSON KARMER [Primary Care Provider] - 1 week
--- NOTE | 2024-04-05 20:16 | ECG_ITS ---
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
[2024-04-05 20:31] VITALS: PULSE 87; O2SAT 97
[2024-04-05] MEDS: IPRATROPIUM/ALBUTEROL SULFATE 3 ML AMPUL.NEB IH (20:34)
[2024-04-05 20:35] LABS: Basophils Percent Auto 0.5 % (0.2-2.0); Eosinophils Absolute Auto 0.2 10^3/uL (0.0-0.7); Eosinophils Percent Auto 1.8 % (0.9-7.0); Hemoglobin 12.3 g/dL (12.0-16.0); Immature Granulocytes Abs Auto 0.02 10^3/uL (0.00-0.03); Immature Granulocytes Pct Auto 0.2 % (0.0-0.5); Lymphocytes Absolute Auto 3.8 10^3/uL (1.2-3.8); Lymphocytes Percent Auto 43.3 % (20.5-60.0); Mean Corpuscular HGB Conc 32.4 g/dL (29.9-35.2); Mean Corpuscular Hemoglobin 27.6 pg (26.7-34.0); Mean Corpuscular Volume 85.4 fL (81.0-99.0); Mean Platelet Volume 9.8 fL (9.5-13.5); Monocytes Absolute Auto 0.5 10^3/uL (0.3-0.8); Monocytes Percent Auto 5.9 % (1.7-12.0); Neutrophils Absolute Auto 4.3 10^3/uL (1.4-6.5); Neutrophils Percent Auto 48.3 % (43.0-75.0); Platelet Count 284 10^3/uL (150-450); Red Blood Count 4.45 10^6/uL (4.20-5.40); Red Cell Distribution Width 12.8 % (11.0-15.0); White Blood Count 8.8 10^3/uL (4.0-11.0)
--- NOTE | 2024-04-05 20:35 | XR_ITS ---
The [address] [address] Patient Name: CALEB LE MRN: [id number] date: 1985 Sex: F Assigned Patient Location: ER Current Patient Location: ED.MAIN Accession/Order Number: [id number] Exam Date: 04/05/2024 20:50 Report Date: 04/05/2024 21:20 At the request of: MANNY MARKER Procedure: XR chest 2V ONE-VIEW CHEST RADIOGRAPH, 04/05/2024 8:50 PM EDT COMPARISON: None CLINICAL HISTORY: sob FINDINGS: No acute cardiopulmonary disease. No pulmonary edema, pneumothorax, or pleural effusion. Normal heart size. No acute osseous abnormality. XR/XR chest 2V IMPRESSION: No acute abnormality identified. Electronically authenticated by: Sandra GIBSON Date: 04/05/2024 21:20
[2024-04-05 20:50] LABS: Alanine Aminotransferase 63 U/L (14-59); Albumin Globulin Ratio 0.9; Albumin Level 3.4 g/dL (3.4-5.0); Alkaline Phosphatase 56 U/L (46-116); Anion Gap 13.8; Aspartate Amino Transferase 18 U/L (15-37); BUN Creatinine Ratio 16.9; Bilirubin Total 0.4 mg/dL (0.2-1.0); Carbon Dioxide 24.8 mmol/L (21.0-32.0); Chloride 101 mmol/L (98-107); Estimated GFR (African America >60 (>=60); Estimated GFR (Non-African Ame >60 (>=60); Globulin 3.7 g/dL; Glucose 304 mg/dL (74-106); Potassium 3.6 mmol/L (3.5-5.1); Sodium 136 mmol/L (136-145); Total Protein 7.1 g/dL (6.4-8.2); Troponin I High Sensitivity <4.0 pg/mL (4.0-51.3)
[2024-04-05 21:06] VITALS: PULSE 83; O2SAT 97
[2024-04-05 21:25] VITALS: BP 130/88; PULSE 78; O2SAT 98
== END 2024-04-05 21:25 | disposition home or self-care (01) ==
PROVIDERS: Emergency Provider Emergency Medicine; PCP Nurse Practitioner Family
DX: J45.909 Unspecified asthma, uncomplicated (principal); E11.65 Type 2 diabetes mellitus with hyperglycemia
CPT/HCPCS: 36415; 71046; 80053; 84484; 85025; 93005; 94640; 99285

== ENCOUNTER 2024-07-01 08:04 | Outpatient (OUT) | payer OTHER, SELFPAY ==
--- OUTSIDE RECORDS SUMMARY | 2024-07-01 08:07 | XMS_ITS | CCD ---
Author Organization 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 Name Role Phone REQUEST, DR NONE LISTED [...] Admitting Unavailable ADRI, PAVAN Attending Unavailable NIA, JONHSON Primary Care Unavailable ADRI, PAVAN Consulting Unavailable NIA, JOHNSON Admitting Unavailable NAI, JOHNSON Attending Unavailable NIA, JOHNSON Primary Care Unavailable NIA, JOHNSON Consulting Unavailable HOY ., DR GOLDAMN Admitting Unavailable HOY ., DR GOLDMAN Attending Unavailable NIA, JOHNSON Primary Care Unavailable HOY ., DR GOLDMAN Consulting Unavailable BRAD, CHARLIE Admitting Unavailable BRAD, CHARLIE Attending Unavailable REQUEST, NONE LISTED Primary Care Unavaila ble BRAD, CHARLIE Consulting Unavailable Unavailable Primary Care Provider Unavailabl e Allergies Allergy Classification Reported Allergen(s) Allergy Type Date of Onset Reaction(s) Facility (1 source) Erythromycin Drug Allergy 05-31-2013 [facility] Repository Problems Active Problems Problem Classification Problem [...] Onset: 08-21-2022 Episodic Other aftercare (1 source) FDC (current) use of insulin; Translations: [SENIOR CARE CURRENT USE OF INSULIN] Onset: 08-21-2022 Episodic Unclassified (1 source) CONTACT W/AND (SUSP) EXPOS COVID-19; Translations: [CONTACT W/AND (SUSP) EXPOS COVID-19] Onset: 10-19-2022 Results Test Name Value Interpretation Reference Range Facility PAP ACOG PANEL 2: 30 to 65on 12-16-2022 . . Normal [facility] Comment on above: Result Comment: Perf ormed at: WB Performed By: #### [id number] #### [facility] [address] [place] [address] Dr. Isaías Plunkett Age Gdln ACOG Testing 30-65 Normal [facility] Comment on above: Performed By: #### [id number] #### [facility] [address] [address] [address] Isaías Plunkett DIAGNOSIS: Comment Normal [facility] Comment on above: Result Comment: NEGA TIVE FOR INTRAEPITHELIAL LESION OR MALIGNANCY. Performed at: WB Performed By: #### [id number] #### [facility] [address] [place] [address] Dr. Isaías Plunkett HPV Aptima Negative Normal Negative [facility] Comment on above: Result Comment: This nucleic acid amplification test detects fourteen high-risk HPV types (16,18,31,33,35,39,45,51,52,56,58,59,66,68) without differentiation. Performed at: =G Performed By: #### [id number] #### [facility] [address] [place] [address] Dr. Isaías Plunkett HPV Genotype Reflex Comment Normal [facility] Comment on above: Result Comment: Crit eria not met, HPV Genotype not performed. Performed at: WB Performed By: #### [id number] #### [facility] [address] [place] [address] Dr. Isaías Plunkett Methodology: Comment Normal [facility] Comment on above: Result Comment: This liquid based ThinPrep(R) pap test was screened with the use of an image guided system. Performed at: WB Performed By: #### [id number] #### [facility] [address] [place] [address] Dr. Isaías Plunkett Note: Comment Normal [facility] Comment on above: Result Comment: The Pap smear is a screening test designed to aid in the detection of premalignant and malignant conditions of the uterine cervix. It is not a diagnostic procedure and should not be used as the sole means of detecting cervical cancer. Both false-positive and false-negative reports do occur. . Performed at: WB Performed By: #### [id number] #### [facility] [address] [place] [address] Dr. Isaías Plunkett Performed by: Comment Normal [facility] Comment on above: Result Comment: Dillon Gonsalez, Gate Clerk (ASCP) Performed at: WB Performed By: #### [id number] #### [facility] [address] [place] [address] Dr. Isaías Plunkett Specimen adequacy: Comment Normal [facility] Comment on above: Result Comment: Sati sfactory for evaluation. Endocervical and/or squamous metaplastic cells (endocervical component) are present. Performed at: WB Performed By: #### [id number] #### [facility] [address] [place] [address] Dr. Isaías Plunkett GLYCOHEMOGLOBIN A1Con 2022 ADA RECOMMENDATION SEE BELOW Normal [facility] Comment on above: Result Comment: ADA RECOMMENDED LIMIT 4.0 - 6.0 ADA THERAPEUTIC TARGET < 7.0 ACTION SUGGESTED > 7.0 Performed By: #### P HVEN #### [facility] [address] [place] [address] Dr. Isaías Plunkett Glucose [Mass/Vol] 197 mg/dL Normal [facility] Comment on above: Performed By: #### P HVEN #### [facility] [address] [place] [address] Dr. Isaías Plunkett HbA1c (Bld) [Mass fraction] 8.5 % Critically high 4.5-6.2 [facility] Comment on above: Performed By: #### P HVEN #### [facility] [address] [place] [address] Dr. Isaías Plunkett Covid-19 PCR ([facility])on SARS-CoV-2 (COVID-19) RNA CHIOMA+probe Ql (Unsp spec) Not detected Normal NOT DETECTED [facility] Comment on above: Result Comment: When diagnostic [...] for this test is supported by the [place] of Health and Human Service's declaration that [...] used). Performed By: #### P HVEN #### [facility] [address] [place] [address] Dr. Isaías Plunkett INFLUENZA A AND B AGon 10-19 INFLUANE SEE BELOW Normal [facility] Comment on above: Result Comment: Nega tive for Flu A protein angiten. Infection due to Flu A cannot be ruled out. Flu A angiten in the sample may be below the detection limit of the test. Performed By: #### I NFLUAB #### [facility] [address] [place] [address] Dr. Isaías Plunkett INFLUBNEG SEE BELOW Normal [facility] Comment on above: Result Comment: Nega tive for Flu B protein antigen. Infection due to Flu B cannot be ruled out. Flu B antigen in the sample may be below the detection limit of the test. Performed By: #### I NFLUAB #### [facility] [address] [place] [address] Dr. Isaías Plunkett INFLUENZA A AG Negative Normal NEGATIVE SEE COMMENT [facility] Comment on above: Performed By: #### I NFLUAB #### [facility] [address] [place] [address] Dr. Isaías Plunkett INFLUENZA B AG Negative Normal NEGATIVE SEE COMMENT [facility] Comment on above: Performed By: #### I NFLUAB #### [facility] [address] [place] [address] Dr. Isaías Plunkett INSULINon 09-10-2022 Insulin 36.6 uIU/mL Critically high 2.6-24.9 [facility] Comment on above: Performed By: #### [id number] #### [facility] [address] [place] [address] Dr. Isaías Plunkett CBC AUTO DIFFon 09-09-2022 BASO # 0.0 103/ul Normal 0.0-0.1 [facility] Comment on above: Performed By: #### C BC #### [facility] [address] [place] [address] Dr. Isaías Plunkett Basophils/100 WBC (Bld) 0.4 % Normal 0.2-2.0 [facility] Comment on above: Performed By: #### C BC #### [facility] [address] [place] [address] Dr. Isaías Plunkett EO # 0.2 103/ul Normal 0.0-0.7 [facility] Comment on above: Performed By: #### C BC #### [facility] [address] [place] [address] Dr. Isaías Plunkett Eosinophils/100 WBC (Bld) 2.0 % Normal 0.9-7.0 [facility] Comment on above: Performed By: #### C BC #### [facility] [address] [place] [address] Dr. Isaías Plunkett Erythrocyte distribution width (RBC) [Ratio] 13.2 % Normal 11.0-15.0 [facility] Comment on above: Performed By: #### C BC #### [facility] [address] [place] [address] Dr. Isaías Plunkett Hematocrit (Bld) [Volume fraction] 39.0 % Normal 36.0-48.0 [facility] Comment on above: Performed By: #### C BC #### [facility] [address] [place] [address] Dr. Isaías Plunkett Hemoglobin (Bld) [Mass/Vol] 12.9 g/dL Normal 12.0-16.0 [facility] Comment on above: Performed By: #### C BC #### [facility] [address] [place] [address] Dr. Isaías Plunkett IG # 0.02 10e3/ul Normal 0.00-0.03 [facility] Comment on above: Performed By: #### C BC #### [facility] [address] [place] [address] Dr. Isaías Plunkett IG % 0.2 % Normal 0.0-0.5 [facility] Comment on above: Performed By: #### C BC #### [facility] [address] [place] [address] Dr. Isaías Plunkett LYMPH # 3.2 103/ul Normal 1.2-3.8 [facility] Comment on above: Performed By: #### C BC #### [facility] [address] [place] [address] Dr. Isaías Plunkett Lymphocytes/100 WBC (Bld) 40.0 % Normal 20.5-60.0 [facility] Comment on above: Performed By: #### C BC #### [facility] [address] [place] [address] Dr. Isaías Plunkett MANUAL DIFF REQ NO Normal [facility] Comment on above: Performed By: #### C BC #### [facility] [address] [place] [address] Dr. Isaías Plunkett MCH (RBC) [Entitic mass] 27.1 pg Normal 26.7-34.0 [facility] Comment on above: Performed By: #### C BC #### [facility] [address] [place] [address] Dr. Isaías Plunkett MCHC (RBC) [Mass/Vol] 33.1 g/dL Normal 29.9-35.2 [facility] Comment on above: Performed By: #### C BC #### [facility] [address] [place] [address] Dr. Isaías Plunkett MCV (RBC) [Entitic vol] 81.9 fL Normal 81.0-99.0 [facility] Comment on above: Performed By: #### C BC #### [facility] [address] [place] [address] Dr. Isaías Plunkett MONO # 0.5 103/ul Normal 0.3-0.8 [facility] Comment on above: Performed By: #### C BC #### [facility] [address] [place] [address] Dr. Isaías Plunkett Monocytes/100 WBC (Bld) 6.2 % Normal 1.7-12.0 [facility] Comment on above: Performed By: #### C BC #### [facility] [address] [place] [address] Dr. Isaías Plunkett NEUT # 4.1 103/ul Normal 1.4-6.5 [facility] Comment on above: Performed By: #### C BC #### [facility] [address] [place] [address] Dr. Isaías Plunkett Neutrophils/100 WBC (Bld) 51.2 % Normal 43.0-75.0 [facility] Comment on above: Performed By: #### C BC #### [facility] [address] [place] [address] Dr. Isaías Plunkett Platelet mean volume (Bld) [Entitic vol] 9.5 fL Normal 9.5-13.5 [facility] Comment on above: Performed By: #### C BC #### [facility] [address] [place] [address] Dr. Isaías Plunkett PLT 275 103/ul Normal 150-450 [facility] Comment on above: Performed By: #### C BC #### [facility] [address] [place] [address] Dr. Isaías Plunkett RBC 4.76 106/ul Normal 4.20-5.40 [facility] Comment on above: Performed By: #### C BC #### [facility] [address] [place] [address] Dr. Isaías Plunkett WBC 8.1 103/ul Normal 4.0-11.0 [facility] Comment on above: Performed By: #### C BC #### [facility] [address] [place] [address] Dr. Isaías Plunkett FREE THYROXINE INDEX T7on FTI 2.05 Normal 1.30-4.50 [facility] Comment on above: Performed By: #### P HVEN #### [facility] [address] [place] [address] Dr. Isaías Plunkett T3U 31.0 % Normal 30.0-39.0 [facility] Comment on above: Performed By: #### P HVEN #### [facility] [address] [place] [address] Dr. Isaías Plunkett T4 [Mass/Vol] 6.60 ug/dL Normal 4.80-13.90 [facility] Comment on above: Performed By: #### P HVEN #### [facility] [address] [place] [address] Dr. Isaías Plunkett GLYCOHEMOGLOBIN A1Con 2021 ADA RECOMMENDATION SEE BELOW Normal [facility] Comment on above: Result Comment: ADA RECOMMENDED LIMIT 4.0 - 6.0 ADA THERAPEUTIC TARGET < 7.0 ACTION SUGGESTED > 7.0 Performed By: #### A 1C #### [facility] [address] [place] [address] Dr. Isaías Plunkett Glucose [Mass/Vol] 226 mg/dL Normal [facility] Comment on above: Performed By: #### A 1C #### [facility] [address] [place] [address] Dr. Isaías Plunkett HbA1c (Bld) [Mass fraction] 9.5 % Critically high 4.5-6.2 [facility] Comment on above: Performed By: #### A 1C #### [facility] [address] [place] [address] Dr. Isaías Plunkett IRONon 09-09-2022 Iron [Mass/Vol] 42.0 ug/dL Critically low 50.0-170.0 [facility] Comment on above: Performed By: #### P HVEN #### [facility] [address] [place] [address] Dr. Isaías Plunkett LIPID PROFILEon 09-09-2022 CHOL-HDL RATIO NORM SEE BELOW Normal [facility] Comment on above: Result Comment: 3.3 - 4.4 LOW RISK 4.4 - 7.1 AVERAGE RISK 7.1 - 11.0 MODERATE RISK >11.0 HIGH RISK Performed By: #### P HVEN #### [facility] [address] [place] [address] Dr. Isaías Plunkett Cholesterol [Mass/Vol] 199 mg/dL Normal <=200 [facility] Comment on above: Performed By: #### P HVEN #### [facility] [address] [place] [address] Dr. Isaías Plunkett Cholesterol in HDL [Mass/Vol] 38 mg/dL Critically low 40-60 [facility] Comment on above: Performed By: #### P HVEN #### [facility] [address] [address] [address] Isaías Plunkett Cholesterol in LDL [Mass/Vol] 124.8 mg/dL Normal [facility] Comment on above: Performed By: #### P HVEN #### [facility] [address] [address] [address] Isaías Plunkett Cholesterol.total/Cho lesterol in HDL [Mass ratio] 5.2 {ratio} Normal [facility] Comment on above: Performed By: #### P HVEN #### [facility] [address] [address] [address] Isaías Plunkett HDL NORMAL > or = 60 mg/dl - LO W CARDIOVASCULAR RISK <40 mg/dl - HIGH CARDIOVASCULAR RISK Normal [facility] Comment on above: Performed By: #### P HVEN #### [facility] [address] [address] [address] Isaías Plunkett LDL CALC NORMAL SEE BELOW Normal [facility] Comment on above: Result Comment: <100 mg/dl OPTIMAL 100 - 129 mg/dl NEAR OR ABOVE OPTIMAL 130 - 159 mg/dl BORDERLINE HIGH 160 - 189 mg/dl HIGH >190 mg/dl VERY HIGH Performed By: #### P HVEN #### [facility] [address] [address] [address] Isaías Plunkett Triglyceride [Mass/Vol] 181 mg/dL Critically high <=150 [facility] Comment on above: Performed By: #### P HVEN #### [facility] [address] [address] [address] Isaías Plunkett VLDL CALC 36.2 mg/dL Normal [facility] Comment on above: Performed By: #### P HVEN #### [facility] [address] [address] [address] Isaías Plunkett PROF 14(COMP METB)on 022 Albumin [Mass/Vol] 3.6 g/dL Normal 3.4-5.0 [facility] Comment on above: Performed By: #### P HVEN #### [facility] [address] [address] [address] Isaías Plunkett Albumin/Globulin [Mass ratio] 0.9 {ratio} Normal [facility] Comment on above: Performed By: #### P HVEN #### [facility] [address] [address] [address] Isaías Plunkett ALP [Catalytic activity/Vol] 54 U/L Normal 46-116 [facility] Comment on above: Performed By: #### P HVEN #### [facility] [address] [address] [address] Isaísa Plunkett ALT [Catalytic activity/Vol] 64 U/L Critically high 14-59 [facility] Comment on above: Performed By: #### P HVEN #### [facility] [address] [place] [address] Dr. Isaías Plunkett Anion gap [Moles/Vol] 13.0 mmol/L Normal [facility] Comment on above: Performed By: #### P HVEN #### [facility] [address] [place] [address] Dr. Isaías Plunkett AST [Catalytic activity/Vol] 17 U/L Normal 15-37 [facility] Comment on above: Performed By: #### P HVEN #### [facility] [address] [place] [address] Dr. Isaías Plunkett Bilirubin [Mass/Vol] 0.2 mg/dL Normal 0.2-1.0 [facility] Comment on above: Performed By: #### P HVEN #### [facility] [address] [address] [address] Isaías Plunkett Calcium [Mass/Vol] 8.8 mg/dL Normal 8.5-10.1 [facility] Comment on above: Performed By: #### P HVEN #### [facility] [address] [place] [address] Dr. Isaías Plunkett Chloride [Moles/Vol] 100 mmol/L Normal 98-107 [facility] Comment on above: Performed By: #### P HVEN #### [facility] [address] [address] [address] Isaías Plunkett CO2 [Moles/Vol] 26.2 mmol/L Normal 21.0-32.0 [facility] Comment on above: Performed By: #### P HVEN #### [facility] [address] [place] [address] Dr. Isaías Plunkett Creatinine [Mass/Vol] 0.59 mg/dL Normal 0.55-1.02 [facility] Comment on above: Performed By: #### P HVEN #### [facility] [address] [place] [address] Dr. Isaías Plunkett EGFR-AF BULGARIAN >60 Normal >=60 [facility] Comment on above: Performed By: #### P HVEN #### [facility] [address] [place] [address] Dr. Isaías Plunkett EGFR-NON AF BULGARIAN >60 Normal >=60 [facility] Comment on above: Performed By: #### P HVEN #### [facility] [address] [place] [address] Dr. Isaías Plunkett Globulin (S) [Mass/Vol] 4.0 g/dL Normal [facility] Comment on above: Performed By: #### P HVEN #### [facility] [address] [place] [address] Dr. Isaías Plunkett Glucose [Mass/Vol] 188 mg/dL Critically high 74-106 T [facility] Comment on above: Performed By: #### P HVEN #### [facility] [address] [place] [address] Dr. Isaías Plunkett Potassium [Moles/Vol] 4.2 mmol/L Normal 3.5-5.1 [facility] Comment on above: Performed By: #### P HVEN #### [facility] [address] [place] [address] Dr. Isaías Plunkett Protein [Mass/Vol] 7.6 g/dL Normal 6.4-8.2 [facility] Comment on above: Performed By: #### P HVEN #### [facility] [address] [place] [address] Dr. Isaías Plunkett Sodium [Moles/Vol] 135 mmol/L Critically low 136-145 Th [facility] Comment on above: Performed By: #### P HVEN #### [facility] [address] [place] [address] Dr. Isaías Plunkett Urea nitrogen [Mass/Vol] 9.0 mg/dL Normal 7.0-18.0 [facility] Comment on above: Performed By: #### P HVEN #### [facility] [address] [place] [address] Dr. Isaías Plunkett Urea nitrogen/Creatinine [Mass ratio] 15.3 mg/mg Normal [facility] Comment on above: Performed By: #### P HVEN #### [facility] [address] [place] [address] Dr. Isaías Plunkett TSHon 09-09-2022 TSH 2.268 uIU/mL Normal 0.358-3.740 [facility] Comment on above: Performed By: #### P HVEN #### [facility] [address] [place] [address] Dr. Isaías Plunkett CBC AUTO DIFFon 08-19-2022 BASO # 0.0 103/ul Normal 0.0-0.1 [facility] Comment on above: Performed By: #### C BC #### [facility] [address] [place] [address] Dr. Isaías Plunkett Basophils/100 WBC (Bld) 0.3 % Normal 0.2-2.0 [facility] Comment on above: Performed By: #### C BC #### [facility] [address] [place] [address] Dr. Isaías Plunkett EO # 0.0 103/ul Normal 0.0-0.7 [facility] Comment on above: Performed By: #### C BC #### [facility] [address] [place] [address] Dr. Isaías Plunkett Eosinophils/100 WBC (Bld) 0.4 % Critically low 0.9-7.0 [facility] Comment on above: Performed By: #### C BC #### [facility] [address] [place] [address] Dr. Isaías Plunkett Erythrocyte distribution width (RBC) [Ratio] 13.3 % Normal 11.0-15.0 [facility] Comment on above: Performed By: #### C BC #### [facility] [address] [place] [address] Dr. Isaías Plunkett Hematocrit (Bld) [Volume fraction] 41.1 % Normal 36.0-48.0 [facility] Comment on above: Performed By: #### C BC #### [facility] [address] [place] [address] Dr. Isaías Plunkett Hemoglobin (Bld) [Mass/Vol] 13.6 g/dL Normal 12.0-16.0 [facility] Comment on above: Performed By: #### C BC #### [facility] [address] [place] [address] Dr. Isaías Plunkett IG # 0.02 10e3/ul Normal 0.00-0.03 [facility] Comment on above: Performed By: #### C BC #### [facility] [address] [place] [address] Dr. Isaías Plunkett IG % 0.3 % Normal 0.0-0.5 [facility] Comment on above: Performed By: #### C BC #### [facility] [address] [place] [address] Dr. Isaías Plunkett LYMPH # 1.2 103/ul Normal 1.2-3.8 [facility] Comment on above: Performed By: #### C BC #### [facility] [address] [place] [address] Dr. Isaías Plunkett Lymphocytes/100 WBC (Bld) 17.4 % Critically low 20.5-60.0 [facility] Comment on above: Performed By: #### C BC #### [facility] [facility] [address] [place] [address] Dr. Isaías Plunkett MANUAL DIFF REQ NO Normal [facility] Comment on above: Performed By: #### C BC #### [facility] [address] [place] [address] Dr. Isaías Plunkett MCH (RBC) [Entitic mass] 27.1 pg Normal 26.7-34.0 [facility] Comment on above: Performed By: #### C BC #### [facility] [address] [place] [address] Dr. Isaías Plunkett MCHC (RBC) [Mass/Vol] 33.1 g/dL Normal 29.9-35.2 [facility] Comment on above: Performed By: #### C BC #### [facility] [address] [place] [address] Dr. Isaías Plunkett MCV (RBC) [Entitic vol] 82.0 fL Normal 81.0-99.0 [facility] Comment on above: Performed By: #### C BC #### [facility] [address] [place] [address] Dr. Isaías Plunkett MONO # 0.4 103/ul Normal 0.3-0.8 [facility] Comment on above: Performed By: #### C BC #### [facility] [address] [place] [address] Dr. Isaías Plunkett Monocytes/100 WBC (Bld) 6.1 % Normal 1.7-12.0 [facility] Comment on above: Performed By: #### C BC #### [facility] [address] [place] [address] Dr. Isaías Plunkett NEUT # 5.1 103/ul Normal 1.4-6.5 [facility] Comment on above: Performed By: #### C BC #### [facility] [address] [place] [address] Dr. Isaías Plunkett Neutrophils/100 WBC (Bld) 75.5 % Critically high 43.0-75.0 [facility] Comment on above: Performed By: #### C BC #### [facility] [address] [place] [address] Dr. Isaías Plunkett Platelet mean volume (Bld) [Entitic vol] 9.4 fL Critically low 9.5-13.5 [facility] Comment on above: Performed By: #### C BC #### [facility] [address] [place] [address] Dr. Isaías Plunkett PLT 257 103/ul Normal 150-450 [facility] Comment on above: Performed By: #### C BC #### [facility] [address] [place] [address] Dr. Isaías Plunkett RBC 5.01 106/ul Normal 4.20-5.40 [facility] Comment on above: Performed By: #### C BC #### [facility] [address] [place] [address] Dr. Isaías Plunkett WBC 6.7 103/ul Normal 4.0-11.0 [facility] Comment on above: Performed By: #### C BC #### [facility] [address] [place] [address] Dr. Isaías Plunkett CULTURE URINEon 08-19-2022 CULTURE URINE Culture Observations : LIGHT GROWTH OF MIXED GENITAL AMI. NO POTENTIAL PATHOGENS SEEN. Normal [facility] Comment on above: Performed By: #### [id number] #### [facility] [address] [place] [address] Dr. Isaías Plunkett ER URINE PROFILEon 2 Bilirubin Ql (U) Negative Normal NEGATIVE [facility] Comment on above: Performed By: #### P REGU ERUR, UMICRO #### [facility] [address] [place] [address] Dr. Isaías Plunkett Clarity (U) CLEAR Normal CLEAR [facility] Comment on above: Performed By: #### P REGU, ERUR, UMICRO #### [facility] [address] [place] [address] Dr. Isaías Plunkett Color (U) YELLOW Normal YELLOW [facility] Comment on above: Performed By: #### P REGU, ERUR, UMICRO #### [facility] [address] [place] [address] Dr. Isaías MCFADDEN A micrscopic examination will be performed if indicated. Normal [facility] Comment on above: Performed By: #### P REGU, ERUR, UMICRO #### [facility] [address] [place] [address] Dr. Isaías Plunkett Glucose Ql (U) 500 mg/dl Abnormal NEGATIVE [facility] Comment on above: Performed By: #### P REGU, ERUR, UMICRO #### [facility] [address] [address] [address] Isaías Plunkett Hemoglobin Ql (U) Negative Normal NEGATIVE [facility] Comment on above: Performed By: #### P REGU, ERUR, UMICRO #### [facility] [address] [address] [address] Isaías Plunkett Ketones Ql (U) TRACE Abnormal NEGATIVE [facility] Comment on above: Performed By: #### P REGU, ERUR, UMICRO #### [facility] [address] [address] [address] Isaías Plunkett LEUKOCYTES TRACE Abnormal NEGATIVE [facility] Comment on above: Performed By: #### P REGU, ERUR, UMICRO #### [facility] [address] [address] [address] Isaías Plunkett Nitrite Ql (U) Negative Normal NEGATIVE [facility] Comment on above: Performed By: #### P REGU, ERUR, UMICRO #### [facility] [address] [address] [address] Isaías Plunkett pH (U) 6.0 [pH] Normal 5-9 [facility] Comment on above: Performed By: #### P REGU, ERUR, UMICRO #### [facility] [address] [address] [address] Isaías Plunkett SPEC GRAVITY 1.025 Normal 1.005-<=1.025 [facility] Comment on above: Performed By: #### P REGU, ERUR, UMICRO #### [facility] [address] [address] [address] Isaías Plunkett UA PROTEIN Negative Normal NEGATIVE/ TRACE [facility] Comment on above: Performed By: #### P REGU, ERUR, UMICRO #### [facility] [address] [address] [address] Isaías Plunkett UR MICRO IND INDICATED Normal [facility] Comment on above: Performed By: #### P REGU ERUR UMICRO #### [facility] [address] [address] [address] Isaías Plunkett Urobilinogen Qn (U) 2.0 {Katherine'U}/dL Abnormal 0.2 - 1. 0 [facility] Comment on above: Performed By: #### P REGUNATANAELR UMICRO #### [facility] [address] [address] [address] Isaías Plunkett LIPASEon 08-19-2022 Lipase [Catalytic activity/Vol] 49.0 U/L Critically low 73.0-393.0 [facility] Comment on above: Performed By: #### P HVEN #### [facility] [address] [place] [address] Dr. Isaías Plunkett PH VENOUS BLOODon 08-19-2022 PCO2 VENOUS 41.0 mmHg Normal 40.0-52.0 [facility] Comment on above: Performed By: #### P HVEN #### [facility] [address] [place] [address] Dr. Isaías Plunkett pH VENOUS 7.415 Normal 7.330-7.430 [facility] Comment on above: Performed By: #### P HVEN #### [facility] [address] [place] [address] Dr. Isaías Plunkett POINT OF CARE GLUCOSEon Glucose [Mass/Vol] 187 mg/dL Critically high 74-106 T [facility] Comment on above: Performed By: #### P OCGLUC #### [facility] [address] [place] [address] Dr. Isaías Plunkett URon 08-19-2022 , QUAL Negative Normal NEGATIVE [facility] Comment on above: Performed By: #### P REGUNATANAELR UMICRO #### [facility] [address] [place] [address] Dr. Isaías Plunkett PROF 14(COMP METB)on 022 Albumin [Mass/Vol] 3.5 g/dL Normal 3.4-5.0 [facility] Comment on above: Performed By: #### P HVEN #### [facility] [address] [address] [address] Isaías Plunkett Albumin/Globulin [Mass ratio] 0.9 {ratio} Normal [facility] Comment on above: Performed By: #### P HVEN #### [facility] [address] [address] [address] Iasías Plunkett ALP [Catalytic activity/Vol] 54 U/L Normal 46-116 [facility] Comment on above: Performed By: #### P HVEN #### [facility] [address] [address] [address] Isaías Plunkett ALT [Catalytic activity/Vol] 82 U/L Critically high 14-59 [facility] Comment on above: Performed By: #### P HVEN #### [facility] [address] [address] [address] Isaías Plunkett Anion gap [Moles/Vol] 13.1 mmol/L Normal [facility] Comment on above: Performed By: #### P HVEN #### [facility] [address] [address] [address] Isaías Plunkett AST [Catalytic activity/Vol] 41 U/L Critically high 15-37 [facility] Comment on above: Performed By: #### P HVEN #### [facility] [address] [address] [address] Isaías Plunkett Bilirubin [Mass/Vol] 0.6 mg/dL Normal 0.2-1.0 [facility] Comment on above: Performed By: #### P HVEN #### [facility] [address] [address] [address] Isaías Plunkett Calcium [Mass/Vol] 8.9 mg/dL Normal 8.5-10.1 [facility] Comment on above: Performed By: #### P HVEN #### [facility] [address] [address] [address] Isaías Plunkett Chloride [Moles/Vol] 99 mmol/L Normal 98-107 [facility] Comment on above: Performed By: #### P HVEN #### [facility] [address] [address] [address] Isaías Plunkett CO2 [Moles/Vol] 25.5 mmol/L Normal 21.0-32.0 [facility] Comment on above: Performed By: #### P HVEN #### [facility] [address] [address] [address] Isaías Plunkett Creatinine [Mass/Vol] 0.66 mg/dL Normal 0.55-1.02 [facility] Comment on above: Performed By: #### P HVEN #### [facility] [address] [address] [address] Isaías Plunkett EGFR-AF BULGARIAN >60 Normal >=60 [facility] Comment on above: Performed By: #### P HVEN #### [facility] [address] [address] [address] Isaías Plunkett EGFR-NON AF BULGARIAN >60 Normal >=60 [facility] Comment on above: Performed By: #### P HVEN #### [facility] [address] [address] [address] Isaías Plunkett Globulin (S) [Mass/Vol] 3.9 g/dL Normal [facility] Comment on above: Performed By: #### P HVEN #### [facility] [address] [address] [address] Isaías Plunkett Glucose [Mass/Vol] 212 mg/dL Critically high 74-106 [facility] Comment on above: Performed By: #### P HVEN #### [facility] [address] [address] [address] Isaías Plunkett Potassium [Moles/Vol] 3.6 mmol/L Normal 3.5-5.1 [facility] Comment on above: Performed By: #### P HVEN #### [facility] [address] [address] [address] Isaías Plunkett Protein [Mass/Vol] 7.4 g/dL Normal 6.4-8.2 [facility] Comment on above: Performed By: #### P HVEN #### [facility] [address] [address] [address] Isaías Plunkett Sodium [Moles/Vol] 134 mmol/L Critically low 136-145 Th e [facility] Comment on above: Performed By: #### P HVEN #### [facility] [address] [place] [address] Dr. Isaías Plunkett Urea nitrogen [Mass/Vol] 11.0 mg/dL Normal 7.0-18.0 [facility] Comment on above: Performed By: #### P HVEN #### [facility] [address] [place] [address] Dr. Isaías Plunkett Urea nitrogen/Creatinine [Mass ratio] 16.7 mg/mg Normal [facility] Comment on above: Performed By: #### P HVEN #### [facility] [address] [place] [address] Dr. Isaías Plunkett TROPONIN, HIGH SENSITIVITYon 08-19-2022 HSTROP 4.5 pg/mL Normal 4.0-51.3 [facility] Comment on above: Result Comment: CUT- OFF POINTS HAVE BEEN ESTABLISHED BASED ON THE FOURTH UNIVERSAL DEFINITIONS OF MYOCARDIAL INFARCTION. THE UPPER REFERENCE LIMIT (URL) OF TROPONIN, DEFINED THE 99TH PERCENTILE OF cTnI DISTRIBUTION IN A REFERENCE POPULATION, HAS BEEN CONFIRMED THE DECISION THRESHOLD FOR [place] DIAGNOSIS. Performed By: #### P HVEN #### [facility] [address] [place] [address] Dr. Isaías Plunkett URINE MICROSCOPIC ONLYon BACTERIA TRACE Abnormal NONE SEEN [facility] Comment on above: Performed By: #### P REGNATANAEL ZarcoR UMICRO #### [facility] [address] [place] [address] Dr. Isaías Plunkett Bacteria identified Cx Nom (U) INDICATED Normal [facility] Comment on above: Performed By: #### P REGUNATANAELR UMICRO #### [facility] [address] [place] [address] Dr. Isaías Plunkett CAST NONE SEEN Normal NONE SEEN [facility] Comment on above: Performed By: #### P REGU ERUR UMICRO #### [facility] [address] [place] [address] Dr. Isaías Plunkett Crystals LM Nom (Urine sed) NONE SEEN Normal NONE SEEN [facility] Comment on above: Performed By: #### P REGU, ERUR, UMICRO #### [facility] [address] [address] [address] Isaías Plunkett Epithelial cells LM Ql (Urine sed) FEW Abnormal NONE SEEN /RARE [facility] Comment on above: Performed By: #### P REGU, ERUR, UMICRO #### [facility] [address] [address] [address] Isaías Plunkett MUCOUS NONE SEEN Normal NONE SEEN [facility] Comment on above: Performed By: #### P REGU, ERUR, UMICRO #### [facility] [address] [place] [address] Dr. Isaías Plunkett RBC 0-2 Normal 0-2 [facility] Comment on above: Performed By: #### P REGU, ERUR, UMICRO #### [facility] [address] [address] [address] sIaías Plunkett WBC 5-10 Abnormal NONE SEEN [facility] Comment on above: Performed By: #### P REGU, ERUR, UMICRO #### [facility] [address] [place] [address] Dr. Isaías Plunkett Encounters Encounter Date Encounter [...] examination without abnormal findings JOHNSON KRAMER [facility] Start: 09-09-2022 End: 09-10-2022 ambulatory JOHNSON KRAMER [...] EST Office Visit [facility] [address] [place] [address] Pavan Johnson, [address] [place] [address] [facility] Payers Date Payer Category Payer Unknown [id number] [id number] [id number] 1985 Unknown [id number] 2.16.84 [id number] 1987 Unknown [id number] 2.16.84 [id number] 1987 Unknown [id number] 2.16.84 [id number] 1987 Unknown [id number] 2.16.84 [id number] 1987 Unknown [id number] 2.16.84 [id number] 1987 Unknown [id number] 2.16.84 [id number] 1959 Unknown [id number] 1959 Unknown [id number] 1959 Unknown [id number] Social History Date Type Detail Facility Start: 11-22-2023 [facility] History of tobacco use Current smoker [facility] History of tobacco use Cigarette Smoker [facility] Start: 11-22-2023 Alcohol intake Current drinke r of alcohol (finding) [facility] Start: 11-22-2023 Alcohol Comment occasional [facility] Start: 1985 Sex Assigned At Not on file N [facility] Gender identity Not on file [facility] [...] BE BASED ON THE PRIMARY CLINICAL RECORDS. [facility] [employer] provides no warranty or guarantee of the accuracy or completeness of information in this document.
[2024-07-01 08:29] LABS: Basophils Percent Auto 0.3 % (0.2-2.0); Eosinophils Absolute Auto 0.2 10^3/uL (0.0-0.7); Eosinophils Percent Auto 2.6 % (0.9-7.0); Hemoglobin 12.7 g/dL (12.0-16.0); Immature Granulocytes Abs Auto 0.02 10^3/uL (0.00-0.03); Immature Granulocytes Pct Auto 0.3 % (0.0-0.5); Lymphocytes Percent Auto 40.8 % (20.5-60.0); Mean Corpuscular HGB Conc 32.6 g/dL (29.9-35.2); Mean Corpuscular Hemoglobin 28.2 pg (26.7-34.0); Mean Corpuscular Volume 86.7 fL (81.0-99.0); Mean Platelet Volume 9.7 fL (9.5-13.5); Monocytes Absolute Auto 0.5 10^3/uL (0.3-0.8); Monocytes Percent Auto 6.3 % (1.7-12.0); Neutrophils Absolute Auto 3.7 10^3/uL (1.4-6.5); Neutrophils Percent Auto 49.7 % (43.0-75.0); Platelet Count 294 10^3/uL (150-450); Red Cell Distribution Width 12.9 % (11.0-15.0); White Blood Count 7.4 10^3/uL (4.0-11.0)
[2024-07-01 09:21] LABS: Alanine Aminotransferase 68 U/L (14-59); Albumin Globulin Ratio 0.9; Albumin Level 3.3 g/dL (3.4-5.0); Alkaline Phosphatase 54 U/L (46-116); Aspartate Amino Transferase 23 U/L (15-37); Bilirubin Total 0.4 mg/dL (0.2-1.0); Calcium 8.7 mg/dL (8.5-10.1); Carbon Dioxide 29.2 mmol/L (21.0-32.0); Chloride 101 mmol/L (98-107); Chol HDL Ratio 4.7; Cholesterol 200 mg/dL (<=200); Estimated GFR (African America >60 (>=60); Estimated GFR (Non-African Ame >60 (>=60); Free T3 3.05 pg/mL (2.18-3.98); Globulin 3.5 g/dL; Glucose 166 mg/dL (74-106); HDL Cholesterol 43 mg/dL (40-60); LDL Cholesterol Calculated 130.6 mg/dL; Potassium 4.2 mmol/L (3.5-5.1); Sodium 136 mmol/L (136-145); Thyroid Stimulating Hormone 1.119 uIU/mL (0.358-3.740); Total Protein 6.8 g/dL (6.4-8.2); Triglycerides 132 mg/dL (<=150); VLDL CHOLESTEROL 26.4 mg/dL
[2024-07-01 10:18] LABS: Estimated Average Glucose 212 mg/dL
[2024-07-03 12:08] LABS: Insulin 21.5 uIU/mL (2.6-24.9)
== END 2024-07-01 08:05 | disposition home or self-care (01) ==
LOC: LAB 08:05
PROVIDERS: PCP Nurse Practitioner Family; Visit Provider Nurse Practitioner Family
DX: Z00.00 Encounter for general adult medical examination without abnormal findings (principal)
CPT/HCPCS: 36415; 80053; 80061; 83036; 83525; 84436; 84443; 84481; 85025

== ENCOUNTER 2024-10-23 11:15 | Emergency (ER) | payer OTHER, SELFPAY ==
[2024-10-23 11:24] VITALS: BP 142/86; PULSE 88; TEMP 36.9; O2SAT 100; BMI 33.1
--- NOTE | 2024-10-23 11:31 | ED_ITS ---
HPI - URI/Sore Throat General Chief Complaint: Upper Respiratory Infection Stated Complaint: CHILLS, COUGH, HEADACHE, FEVER, SORE THROAT Time Seen by Provider: 10/23/24 11:22 History of Present Illness HPI Narrative: 39-year-old female presents to the emergency department for chief complaint of cough and congestion. She has felt this way for 3 days and she states she is coughing up chunks of green phlegm. Her body hurts as well. Related Data Home Medications ?Medication ?Instructions ?Recorded ?Confirmed metformin 500 mg tablet 500 mg PO BID 10/30/23 10/30/23 no medications 04/05/24 Previous Rx's ?Medication ?Instructions ?Recorded albuterol sulfate 90 mcg/actuation 2 inh inhalation Q4H PRN shortness 10/30/23 aerosol inhaler of breath or wheezing #8.5 grams benzonatate 100 mg capsule 100 mg PO TID PRN cough #20 caps 10/30/23 loratadine 5 mg-pseudoephedrine ER 1 tab PO Q12H PRN nasal congestion 10/30/23 120 mg tablet,extended #20 tabs release,12hr (Claritin-D 12 Hour) benzonatate 100 mg capsule 100 mg PO TID PRN cough #20 caps 10/23/24 doxycycline hyclate 100 mg capsule 100 mg PO BID 10 days #20 caps 10/23/24 Allergies Allergy/AdvReac Type Severity Reaction Status Date / Time erythromycin base AdvReac Intermediate Rash Verified 04/05/24 19:59 Review of Systems ROS Narrative A ten point review of systems is negative except as noted above. PFSH PFSH Social History Smoking status: Never smoker Little interest or pleasure in doing things: not at all Feeling down, depressed, or hopeless: not at all Exam Narrative Exam Narrative: Nurses note and vital signs reviewed and patient is not hypoxic. General: The patient appears in no apparent distress. Patient is resting comfortably on cart. Skin: Warm, dry, no pallor noted. There is no rash noted. Head: Normocephalic, atraumatic Eye: Normal conjunctiva, no drainage Ears, Nose, Mouth, and Throat: oral mucosa is moist. Nares patent. No pharyngeal erythema or exudate. Uvula midline. Cardiovascular: Regular Rate and Rhythm Respiratory: Patient is in no distress, no accessory muscle use, lungs are clear to auscultation, no wheezing, rales or rhonchi Back: non-tender GI: Soft and nontender Musculoskeletal: The patient has no evidence of calf tenderness, no pitting edema, symmetrical pulses noted bilaterally Neurological: A&O, normal speech Psychiatric: Cooperative Constitutional Vital Signs, click to edit/add: Last Vital Signs Temp 98.5 F 10/23/24 11:24 Pulse 88 10/23/24 11:24 Resp 18 10/23/24 11:24 BP 142/86 H 10/23/24 11:24 Pulse Ox 100 10/23/24 11:24 Course Vital Signs Vital signs: Vital Signs Temperature 98.5 F 10/23/24 11:24 Pulse Rate 88 10/23/24 11:24 Respiratory Rate 18 10/23/24 11:24 Blood Pressure 142/86 H 10/23/24 11:24 Pulse Oximetry 100 10/23/24 11:24 Temperature 98.5 F 10/23/24 11:24 Pulse Rate 88 10/23/24 11:24 Respiratory Rate 18 10/23/24 11:24 Blood Pressure 142/86 H 10/23/24 11:24 Pulse Oximetry 100 10/23/24 11:24 MDM - URI/Sore Throat MDM Narrative Medical decision making narrative: COVID, influenza, strep, and chest x-ray are negative. Treatment diagnosis and follow-up were discussed with the patient. Differential Diagnosis Differential diagnosis: Likely upper respiratory infection, viral infection, influenza and other (COVID, pneumonia) Lab Data Attestation: I reviewed the patient's lab results. Labs: Lab Results 10/23/24 Range/Units 11:33 Influenza Type A Ag Negative Influenza Type B Ag Negative SARS-CoV-2 Ag (CV2AG) Negative (NEGATIVE) Streptococcus Screen Negative Imaging Data Chest x-ray: Radiologist's impression: ITS Impressions Chest X-Ray 10/23/24 11:44 IMPRESSION: No acute cardiopulmonary process Electronically authenticated by: TANJA HE Date: 10/23/2024 12:12 Discharge Plan Discharge Chief Complaint: Upper Respiratory Infection Clinical Impression: URI (upper respiratory infection) Patient Disposition: Home, Self-Care Time of Disposition Decision: 12:18 Condition: Good Mode of Transportation: Private Vehicle Prescriptions / Home Meds: New doxycycline hyclate 100 mg capsule 100 mg PO BID 10 Days Qty: 20 0RF benzonatate 100 mg capsule 100 mg PO TID PRN (Reason: cough) Qty: 20 0RF No Action metformin 500 mg tablet 500 mg PO BID benzonatate 100 mg capsule 100 mg PO TID PRN (Reason: cough) Qty: 20 0RF Claritin-D 12 Hour 5-120 mg tablet extended release 12 hr 1 tab PO Q12H PRN (Reason: nasal congestion) Qty: 20 0RF albuterol sulfate 90 mcg/actuation HFA aerosol inhaler 2 inh inhalation Q4H PRN (Reason: shortness of breath or wheezing) Qty: 8.5 0RF no medications Print Language: Setswana Instructions: Upper Respiratory Infection (ED) Referrals: JOHNSON KRAMER [Primary Care Provider] - 1 week
--- NOTE | 2024-10-23 11:44 | XR_ITS ---
The [address] [address] Patient Name: CALEB LE MRN: [id number] date: 1985 Sex: F Assigned Patient Location: ER Current Patient Location: ED.MAIN Accession/Order Number: [id number] Exam Date: 10/23/2024 11:37 Report Date: 10/23/2024 12:12 At the request of: SHERRY GLEZ Procedure: XR chest 1V EXAM: XR chest 1V HISTORY: cough COMPARISON: 04/05/2024 TECHNIQUE: AP portable FINDINGS: LUNGS: No significant pulmonary parenchymal abnormalities. Low lung volumes VASCULATURE: No increased pulmonary vasculature. PLEURA: No pneumothorax, effusion, or pleural thickening. CARDIAC: No cardiomegaly or cardiac silhouette abnormality. MEDIASTINUM: No visible mass or adenopathy. BONES: No fracture or visible bone lesion. OTHER: Negative. XR/XR chest 1V IMPRESSION: No acute cardiopulmonary process Electronically authenticated by: TANJA HE Date: 10/23/2024 12:12
[2024-10-23 12:00] LABS: Internal Control Within Normal Limits; Strep A Antigen Screen Negative
[2024-10-23 12:05] LABS: Influenza Virus A Antigen Negative; Influenza Virus B Antigen Negative; Internal Control Within Normal Limits; SARS-CoV-2 Ag NEGATIVE (NEGATIVE)
--- OUTSIDE RECORDS SUMMARY | 2024-10-23 12:06 | XMS_ITS | CCD ---
Author Organization [facility]ini[facility] Care Team Providers Care Analytics Associate Name Role Phone REQUEST, DR NONE LISTED Primary Care Unavaila ble PAY ., DR KONG Admitting Unavailable PAY ., DR KONG Attending Unavailable PAY ., DR KONG Consulting Unavailable NIA, POLY Admitting Unavailable NIA, POLY Attending Unavailable NIA, POLY Primary Care Unavailable NIA, POLY Consulting Unavailable NIA, POLY Admitting Unavailable NIA, POLY Attending Unavailable NIA, POLY Primary Care Unavailable ADRI, PAVAN Admitting Unavailable ADRI, PAVAN Attending Unavailable NIA, POLY Primary Care Unavailable ADRI, PAVAN Consulting Unavailable NIA, POLY Admitting Unavailable NIA, POLY Attending Unavailable NIA, POLY Primary Care Unavailable NIA, POLY Consulting Unavailable HOY ., DR GOLDMAN Admitting Unavailable HOY ., DR GOLDMAN Attending Unavailable NIA, POLY Primary Care Unavailable HOY ., DR GOLDMAN Consulting Unavailable BRAD, CHARLIE Admitting Unavailable BRAD, CHARLIE Attending Unavailable REQUEST, NONE LISTED Primary Care Unavaila ble BRAD, CHARLIE Consulting Unavailable Unavailable Primary Care Provider Unavailcesia Archibald MD, Poly Unavailable VIANEY TILLEY Attending Unavailable POLY ARCHIBALD Referring Unavailable Allergies Allergy Classification Reported Allergen(s) Allergy Type Date of Onset Reaction(s) Facility (4 sources) Erythromycin Drug Allergy 05-31-[address] [facility] Medications Current Medications Medication Drug Class(es) Dates Sig (Normalized) Sig (Original) [id number] 200 actuat albuterol 0.09 mg/actuat metered dose inhaler (3 sources) beta2-Adrenergic Agonist Start: 10-30-2023 take 2 puff(s) by mouth every four hours albuterol HFA 90 mcg/act inhaler inhale 2 puffs by mouth and INTO THE LUNGS every 4 hours if neede... (REFER TO PRESCRIPTION NOTES). 10/30/2023 Active ciprofloxacin 3 mg/ml / dexamethasone 1 mg/ml otic suspension (2 sources) Corticosteroid, Quinolone Antimicrobial Start: 09-05-2024 End: 09-15-2024 ciprofloxacin-dexAM ETHasone (CiproDEX) otic suspension Indications: Other infective chronic otitis externa of both ears Administer 4 drops into each ear in the morning and 4 drops before bedtime. Do all this for 10 days. 7.5 mL 09/05/2024 09/15/2024 Active clotrimazole 10 mg/ml topical solution (2 sources) Azole Antifungal Start: 09-05-2024 clotrimazole (Lotrimin) 1 % external solution Indications: Other infective chronic otitis externa of both ears 4 drops to each ear 2 times daily for 10 days 10 mL 1 09/05/2024 Active levonorgestrel 0.915672 mg/hr intrauterine system (3 sources) Progestin, Progestin-containin g Intrauterine Device Levonorgestrel (Mirena, 52 MG,) 20 MCG/DAY intrauterine device as directed Intrauterine Active metFORMIN hydrochloride 500 mg oral tablet (3 sources) Biguanide Start: 08-23-2024 metFORMIN (Glucophage) 500 MG tablet Daily 08/23/2024 Active omeprazole 20 mg delayed release oral capsule (3 sources) Proton Pump Inhibitor omeprazole (PriLOSEC) [address] capsule 1 (one) time each day at the same time Active Problems Active Problems Problem Classification Problem Date Documented Date Episodic/Chronic Acute bronchitis (1 source) Acute bronchitis due to other specified organisms; Translations: [ACUTE BRONCHITIS D/T SPEC ORGANISMS] Onset: 10-20-2022 Episodic Diabetes mellitus with complications (4 sources) Type 2 diabetes mellitus with hyperglycemia; Translations: [TYPE 2 DM W/HYPERGLYCEMIA] Onset: 08-19-2022 Chronic Diabetes mellitus without complication (7 sources) Type 2 diabetes mellitus without complications; Translations: [Diabetes mellitus] Onset: 11-27-2022 Chronic Diabetes mellitus without complication (1 source) Other abnormal glucose; Translations: [OTHER ABNORMAL GLUCOSE] Onset: 12-02-2022 Episodic Esophageal disorders (3 sources) Gastroesophageal reflux disease; Translations: [Gastro-esophageal reflux disease without esophagitis] Onset: 08-31-2024 08-31-2024 Chronic Essential hypertension (1 source) Essential (primary) hypertension; Translations: [ESSENTIAL PRIMARY HYPERTENSION] Onset: 08-21-2022 Chronic Nonspecific chest pain (4 sources) Other chest pain; Translations: [OTHER CHEST PAIN] Onset: 12-28-2022 Episodic Other ear and sense organ disorders (2 sources) Chronic infective otitis externa; Translations: [Other infective otitis externa, bilateral] 09-05-2024 Episodic Other ear and sense organ disorders (2 sources) Impacted cerumen of bilateral ears; Translations: [Impacted cerumen, bilateral] 09-05-2024 Episodic Other nutritional; endocrine; and metabolic disorders (3 sources) Obesity; Translations: [Obesity, unspecified] Onset: 08-31-2024 08-31-2024 Chronic Other screening for suspected conditions (not mental disorders or infectious disease) (4 sources) Encounter for screening for malignant neoplasm of cervix; Translations: [ENC SCREENING MALIG NEOPLASM CERV] Onset: 12-08-2022 Episodic Other upper respiratory infections (3 sources) Acute sinusitis; Translations: [Acute sinusitis, unspecified] Onset: 08-31-2024 08-31-2024 Episodic Otitis media and related conditions (3 sources) Otitis media of bilateral ears; Translations: [Otitis media, unspecified, bilateral] Onset: 08-31-2024 08-31-2024 Episodic Unclassified (3 sources) CONTACT W/AND (SUSP) [...] 08-21-2022 Episodic Other aftercare (1 source) 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 . Normal [facility] Comment on above: Result Comment: Perf ormed at: WB Performed By: #### [id number] #### [facility] [address] [place] [address] Dr. Isaías Plunkett Age Gdln ACOG Testing 30-65 Normal [facility] Comment on above: Performed By: #### [id number] #### [facility] [address] [address] [address] Isaías Plunkett DIAGNOSIS: Comment Normal [facility] Comment on above: Result Comment: NEGA TIVE FOR INTRAEPITHELIAL LESION OR MALIGNANCY. Performed at: WB Performed By: #### [id number] #### [facility] [address] [place] [address] Dr. Isaías Plunkett HPV Aptima Negative Normal Negative [facility] Comment on above: Result Comment: This nucleic acid amplification test detects fourteen high-risk HPV types (16,18,31,33,35,39,45,51,52,56,58,59,66,68) without differentiation. Performed at: =G Performed By: #### [id number] #### [facility] [address] [address] [address] Isaías Plunkett HPV Genotype Reflex Comment Normal [facility] Comment on above: Result Comment: Crit eria not met, HPV Genotype not performed. Performed at: WB Performed By: #### [id number] #### [facility] [address] [place] [address] Dr. Isaías Plunkett Methodology: Comment Normal [facility] Comment on above: Result Comment: This liquid based ThinPrep(R) pap test was screened with the use of an image guided system. Performed at: WB Performed By: #### [id number] #### [facility] [address] [place] [address] Dr. Isaías Plunkett Note: Comment Normal [facility] Comment on above: Result Comment: The Pap smear is a screening test designed to aid in the detection of premalignant and malignant conditions of the uterine cervix. It is not a diagnostic procedure and should not be used as the sole means of detecting cervical cancer. Both false-positive and false-negative reports do occur. . Performed at: WB Performed By: #### [id number] #### [facility] [address] [place] [address] Dr. Isaías Plunkett Performed by: Comment Normal [facility] Comment on above: Result Comment: Dillon Gonsalez, [place] Administrator (ASCP) Performed at: WB Performed By: #### [id number] #### [facility] [address] [place] [address] Dr. Isaías Plunkett Specimen adequacy: Comment Normal [facility] Comment on above: Result Comment: Sati sfactory for evaluation. Endocervical and/or squamous metaplastic cells (endocervical component) are present. Performed at: WB Performed By: #### [id number] #### [facility] [address] [place] [address] Dr. Isaías Plunkett GLYCOHEMOGLOBIN A1Con 2022 ADA RECOMMENDATION SEE BELOW Normal [facility] Comment on above: Result Comment: ADA RECOMMENDED LIMIT 4.0 - 6.0 ADA THERAPEUTIC TARGET < 7.0 ACTION SUGGESTED > 7.0 Performed By: #### P HVEN #### [facility] [address] [place] [address] Dr. Isaías Plunkett Glucose [Mass/Vol] 197 mg/dL Normal [facility] Comment on above: Performed By: #### P HVEN #### [facility] [address] [place] [address] Dr. Isaías Plunkett HbA1c (Bld) [Mass fraction] 8.5 % Critically high 4.5-6.2 [facility] Comment on above: Performed By: #### P HVEN #### [facility] [address] [place] [address] Dr. Isaías Plunkett Covid-19 PCR ([facility])on SARS-CoV-2 (COVID-19) RNA CHIOMA+probe Ql (Unsp spec) Not detected Normal NOT DETECTED [facility] Comment on above: Result Comment: When diagnostic [...] for this test is supported by the [place] [employer] and [employer]'s declaration that [...] used). Performed By: #### P HVEN #### [facility] [address] [place] [address] Dr. Isaías Plunkett INFLUENZA A AND B AGon 10-19 [facility] SEE BELOW Normal [facility] Comment on above: Result Comment: Nega tive for Flu A protein angiten. Infection due to Flu A cannot be ruled out. Flu A angiten in the sample may be below the detection limit of the test. Performed By: #### I NFLUAB #### [facility] [address] [place] [address] Dr. Isaías [facility] Normal [facility] Comment on above: Result Comment: Nega tive for Flu B protein antigen. Infection due to Flu B cannot be ruled out. Flu B antigen in the sample may be below the detection limit of the test. Performed By: #### I NFLUAB #### [facility] [address] [place] [address] Dr. Isaías Plunkett INFLUENZA A AG Negative Normal NEGATIVE SEE COMMENT [facility] Comment on above: Performed By: #### I NFLUAB #### [facility] [address] [place] [address] Dr. Isaías Plunkett INFLUENZA B AG Negative Normal NEGATIVE SEE COMMENT [facility] Comment on above: Performed By: #### I NFLUAB #### [facility] [address] [place] [address] Dr. Isaías Plunkett INSULINon 09-10-2022 Insulin 36.6 uIU/mL Critically high 2.6-24.9 [facility] Comment on above: Performed By: #### [id number] #### [facility] [address] [place] [address] Dr. Isaías Plunkett CBC AUTO DIFFon 09-09-2022 BASO # 0.0 103/ul Normal 0.0-0.1 [facility] Comment on above: Performed By: #### C BC #### [facility] [address] [place] [address] Dr. Isaías Plunkett Basophils/100 WBC (Bld) 0.4 % Normal 0.2-2.0 [facility] Comment on above: Performed By: #### C BC #### [facility] [address] [place] [address] Dr. Isaías Plunkett EO # 0.2 103/ul Normal 0.0-0.7 [facility] Comment on above: Performed By: #### C BC #### [facility] [address] [place] [address] Dr. Isaías Plunkett Eosinophils/100 WBC (Bld) 2.0 % Normal 0.9-7.0 [facility] Comment on above: Performed By: #### C BC #### [facility] [address] [place] [address] Dr. Isaías Plunkett Erythrocyte distribution width (RBC) [Ratio] 13.2 % Normal 11.0-15.0 [facility] Comment on above: Performed By: #### C BC #### [facility] [address] [place] [address] Dr. Isaías Plunkett Hematocrit (Bld) [Volume fraction] 39.0 % Normal 36.0-48.0 [facility] Comment on above: Performed By: #### C BC #### [facility] [address] [place] [address] Dr. Isaías Plunkett Hemoglobin (Bld) [Mass/Vol] 12.9 g/dL Normal 12.0-16.0 [facility] Comment on above: Performed By: #### C BC #### [facility] [address] [place] [address] Dr. Isaías Plunkett IG # 0.02 10e3/ul Normal 0.00-0.03 [facility] Comment on above: Performed By: #### C BC #### [facility] [address] [place] [address] Dr. Isaías Plunkett IG % 0.2 % Normal 0.0-0.5 [facility] Comment on above: Performed By: #### C BC #### [facility] [address] [place] [address] Dr. Isaías Plunkett LYMPH # 3.2 103/ul Normal 1.2-3.8 [facility] Comment on above: Performed By: #### C BC #### [facility] [address] [place] [address] Dr. Isaías Plunkett Lymphocytes/100 WBC (Bld) 40.0 % Normal 20.5-60.0 [facility] Comment on above: Performed By: #### C BC #### [facility] [address] [place] [address] Dr. Isaías Plunkett MANUAL DIFF REQ NO Normal [facility] Comment on above: Performed By: #### C BC #### [facility] [address] [place] [address] Dr. Isaías Plunkett MCH (RBC) [Entitic mass] 27.1 pg Normal 26.7-34.0 [facility] Comment on above: Performed By: #### C BC #### [facility] [address] [place] [address] Dr. Isaías Plunkett MCHC (RBC) [Mass/Vol] 33.1 g/dL Normal 29.9-35.2 [facility] Comment on above: Performed By: #### C BC #### [facility] [address] [place] [address] Dr. Isaías Plunkett MCV (RBC) [Entitic vol] 81.9 fL Normal 81.0-99.0 [facility] Comment on above: Performed By: #### C BC #### [facility] [address] [place] [address] Dr. Isaías Plunkett MONO # 0.5 103/ul Normal 0.3-0.8 [facility] Comment on above: Performed By: #### C BC #### [facility] [address] [place] [address] Dr. Isaías Plunkett Monocytes/100 WBC (Bld) 6.2 % Normal 1.7-12.0 [facility] Comment on above: Performed By: #### C BC #### [facility] [address] [place] [address] Dr. Isaías Plunkett NEUT # 4.1 103/ul Normal 1.4-6.5 [facility] Comment on above: Performed By: #### C BC #### [facility] [address] [place] [address] Dr. Isaías Plunkett Neutrophils/100 WBC (Bld) 51.2 % Normal 43.0-75.0 [facility] Comment on above: Performed By: #### C BC #### [facility] [address] [place] [address] Dr. Isaías Plunkett Platelet mean volume (Bld) [Entitic vol] 9.5 fL Normal 9.5-13.5 [facility] Comment on above: Performed By: #### C BC #### [facility] [address] [place] [address] Dr. Isaías Plunkett PLT 275 103/ul Normal 150-[address] [facility] Comment on above: Performed By: #### C BC #### [facility] [address] [place] [address] Dr. Isaías Plunkett RBC 4.76 106/ul Normal 4.20-5.[address] [facility] Comment on above: Performed By: #### C BC #### [facility] [address] [place] [address] Dr. Isaías Plunkett WBC 8.1 103/ul Normal 4.0-11.[address] [facility] Comment on above: Performed By: #### C BC #### [facility] [address] [address] [address] Isaías Plunkett FREE THYROXINE INDEX T7on FTI 2.05 Normal 1.30-4.50 [facility] Comment on above: Performed By: #### P HVEN #### [facility] [address] [address] [address] Isaías Plunkett T3U 31.0 % Normal 30.0-39.0 [facility] Comment on above: Performed By: #### P HVEN #### [facility] [address] [address] [address] Isaías Plunkett T4 [Mass/Vol] 6.60 ug/dL Normal 4.80-13.90 [facility] Comment on above: Performed By: #### P HVEN #### [facility] [address] [place] [address] Dr. Isaías Plunkett GLYCOHEMOGLOBIN A1Con 2021 ADA RECOMMENDATION SEE BELOW Normal [facility] Comment on above: Result Comment: ADA RECOMMENDED LIMIT 4.0 - 6.0 ADA THERAPEUTIC TARGET < 7.0 ACTION SUGGESTED > 7.0 Performed By: #### A 1C #### [facility] [address] [place] [address] Dr. Isaías Plunkett Glucose [Mass/Vol] 226 mg/dL Normal [facility] Comment on above: Performed By: #### A 1C #### [facility] [address] [address] [address] Isaías Plunkett HbA1c (Bld) [Mass fraction] 9.5 % Critically high 4.5-6.2 [facility] Comment on above: Performed By: #### A 1C #### [facility] [address] [place] [address] Dr. Isaías Plunkett IRONon 09-09-2022 Iron [Mass/Vol] 42.0 ug/dL Critically low 50.0-170.0 [facility] Comment on above: Performed By: #### P HVEN #### [facility] [address] [place] [address] Dr. Isaías Plunkett LIPID PROFILEon 09-09-2022 CHOL-HDL RATIO NORM SEE BELOW Normal [facility] Comment on above: Result Comment: 3.3 - 4.4 LOW RISK 4.4 - 7.1 AVERAGE RISK 7.1 - 11.0 MODERATE RISK >11.0 HIGH RISK Performed By: #### P HVEN #### [facility] [address] [address] [address] Isaías Plunkett Cholesterol [Mass/Vol] 199 mg/dL Normal <=200 [facility] Comment on above: Performed By: #### P HVEN #### [facility] [address] [address] [address] Isaías Plunkett Cholesterol in HDL [Mass/Vol] 38 mg/dL Critically low 40-60 [facility] Comment on above: Performed By: #### P HVEN #### [facility] [address] [address] [address] Isaías Plunkett Cholesterol in LDL [Mass/Vol] 124.8 mg/dL Normal [facility] Comment on above: Performed By: #### P HVEN #### [facility] [address] [address] [address] Isaías Plunkett Cholesterol.total/Cho lesterol in HDL [Mass ratio] 5.2 {ratio} Normal [facility] Comment on above: Performed By: #### P HVEN #### [facility] [address] [address] [address] Isaías Plunkett HDL NORMAL > or = 60 mg/dl - LO W CARDIOVASCULAR RISK <40 mg/dl - HIGH CARDIOVASCULAR RISK Normal [facility] Comment on above: Performed By: #### P HVEN #### [facility] [address] [address] [address] Isaías Plunkett LDL CALC NORMAL SEE BELOW Normal [facility] Comment on above: Result Comment: <100 mg/dl OPTIMAL 100 - 129 mg/dl NEAR OR ABOVE OPTIMAL 130 - 159 mg/dl BORDERLINE HIGH 160 - 189 mg/dl HIGH >190 mg/dl VERY HIGH Performed By: #### P HVEN #### [facility] [address] [address] [address] Isaías Plunkett Triglyceride [Mass/Vol] 181 mg/dL Critically high <=150 [facility] Comment on above: Performed By: #### P HVEN #### [facility] [address] [place] [address] Dr. Isaías Plunkett VLDL CALC 36.2 mg/dL Normal [facility] Comment on above: Performed By: #### P HVEN #### [facility] [address] [place] [address] Dr. Isaías Plunkett PROF 14(COMP METB)on 022 Albumin [Mass/Vol] 3.6 g/dL Normal 3.4-5.0 [facility] Comment on above: Performed By: #### P HVEN #### [facility] [address] [place] [address] Dr. Isaías Plunkett Albumin/Globulin [Mass ratio] 0.9 {ratio} Normal [facility] Comment on above: Performed By: #### P HVEN #### [facility] [address] [place] [address] Dr. Isaías Plunkett ALP [Catalytic activity/Vol] 54 U/L Normal 46-116 [facility] Comment on above: Performed By: #### P HVEN #### [facility] [address] [place] [address] Dr. Isaías Plunkett ALT [Catalytic activity/Vol] 64 U/L Critically high 14-59 [facility] Comment on above: Performed By: #### P HVEN #### [facility] [address] [address] [address] Isaías Plunkett Anion gap [Moles/Vol] 13.0 mmol/L Normal [facility] Comment on above: Performed By: #### P HVEN #### [facility] [address] [place] [address] Dr. Isaías Plunkett AST [Catalytic activity/Vol] 17 U/L Normal 15-37 [facility] Comment on above: Performed By: #### P HVEN #### [facility] [address] [place] [address] Dr. Isaías Plunkett Bilirubin [Mass/Vol] 0.2 mg/dL Normal 0.2-1.0 [facility] Comment on above: Performed By: #### P HVEN #### [facility] [address] [place] [address] Dr. Isaías Plunkett Calcium [Mass/Vol] 8.8 mg/dL Normal 8.5-10.1 [facility] Comment on above: Performed By: #### P HVEN #### [facility] [address] [address] [address] Isaías Plunkett Chloride [Moles/Vol] 100 mmol/L Normal 98-107 [facility] Comment on above: Performed By: #### P HVEN #### [facility] [address] [place] [address] Dr. Isaías Plunkett CO2 [Moles/Vol] 26.2 mmol/L Normal 21.0-32.0 [facility] Comment on above: Performed By: #### P HVEN #### [facility] [address] [place] [address] Dr. Isaías Plunkett Creatinine [Mass/Vol] 0.59 mg/dL Normal 0.55-1.02 [facility] Comment on above: Performed By: #### P HVEN #### [facility] [address] [place] [address] Dr. Isaías Plunkett EGFR-AF CHINESE >60 Normal >=60 [facility] Comment on above: Performed By: #### P HVEN #### [facility] [address] [place] [address] Dr. Isaías Plunkett EGFR-NON AF CHINESE >60 Normal >=60 [facility] Comment on above: Performed By: #### P HVEN #### [facility] [address] [place] [address] Dr. Isaías Plunkett Globulin (S) [Mass/Vol] 4.0 g/dL Normal [facility] Comment on above: Performed By: #### P HVEN #### [facility] [address] [place] [address] Dr. Isaías Plunkett Glucose [Mass/Vol] 188 mg/dL Critically high 74-106 [facility] Comment on above: Performed By: #### P HVEN #### [facility] [address] [address] [address] Isaías Plunkett Potassium [Moles/Vol] 4.2 mmol/L Normal 3.5-5.1 [facility] Comment on above: Performed By: #### P HVEN #### [facility] [address] [address] [address] Isaías Plunkett Protein [Mass/Vol] 7.6 g/dL Normal 6.4-8.2 [facility] Comment on above: Performed By: #### P HVEN #### [facility] [address] [address] [address] Isaías Plunkett Sodium [Moles/Vol] 135 mmol/L Critically low 136-145 [facility] Comment on above: Performed By: #### P HVEN #### [facility] [address] [place] [address] Dr. Isaías Plunkett Urea nitrogen [Mass/Vol] 9.0 mg/dL Normal 7.0-18.0 [facility] Comment on above: Performed By: #### P HVEN #### [facility] [address] [address] [address] Isaías Plunkett Urea nitrogen/Creatinine [Mass ratio] 15.3 mg/mg Normal [facility] Comment on above: Performed By: #### P HVEN #### [facility] [address] [place] [address] Dr. Isaías Plunkett TSHon 09-09-2022 TSH 2.268 uIU/mL Normal 0.358-3.740 [facility] Comment on above: Performed By: #### P HVEN #### [facility] [address] [place] [address] Dr. Isaías Plunkett CBC AUTO DIFFon 08-19-2022 BASO # 0.0 103/ul Normal 0.0-0.1 [facility] Comment on above: Performed By: #### C BC #### [facility] [address] [place] [address] Dr. Isaías Plunkett Basophils/100 WBC (Bld) 0.3 % Normal 0.2-2.0 [facility] Comment on above: Performed By: #### C BC #### [facility] [address] [place] [address] Dr. Isaías Plunkett EO # 0.0 103/ul Normal 0.0-0.7 [facility] Comment on above: Performed By: #### C BC #### [facility] [address] [place] [address] Dr. Isaías Plunkett Eosinophils/100 WBC (Bld) 0.4 % Critically low 0.9-7.0 [facility] Comment on above: Performed By: #### C BC #### [facility] [address] [place] [address] Dr. Isaías Plunkett Erythrocyte distribution width (RBC) [Ratio] 13.3 % Normal 11.0-15.0 [facility] Comment on above: Performed By: #### C BC #### [facility] [address] [place] [address] Dr. Isaías Plunkett Hematocrit (Bld) [Volume fraction] 41.1 % Normal 36.0-48.0 [facility] Comment on above: Performed By: #### C BC #### [facility] [address] [place] [address] Dr. Isaías Plunkett Hemoglobin (Bld) [Mass/Vol] 13.6 g/dL Normal 12.0-16.0 [facility] Comment on above: Performed By: #### C BC #### [facility] [address] [place] [address] Dr. Isaías Plunkett IG # 0.02 10e3/ul Normal 0.00-0.03 [facility] Comment on above: Performed By: #### C BC #### [facility] [address] [place] [address] Dr. Isaías Plunkett IG % 0.3 % Normal 0.0-0.5 [facility] Comment on above: Performed By: #### C BC #### [facility] [address] [place] [address] Dr. Isaías Plunkett LYMPH # 1.2 103/ul Normal 1.2-3.8 [facility] Comment on above: Performed By: #### C BC #### [facility] [address] [place] [address] Dr. Isaías Plunkett Lymphocytes/100 WBC (Bld) 17.4 % Critically low 20.5-60.0 [facility] Comment on above: Performed By: #### C BC #### [facility] [address] [place] [address] Dr. Isaías Plunkett MANUAL DIFF REQ NO Normal [facility] Comment on above: Performed By: #### C BC #### [facility] [address] [place] [address] Dr. Isaías Plunkett MCH (RBC) [Entitic mass] 27.1 pg Normal 26.7-34.0 [facility] Comment on above: Performed By: #### C BC #### [facility] [address] [place] [address] Dr. Isaías Plunkett MCHC (RBC) [Mass/Vol] 33.1 g/dL Normal 29.9-35.2 [facility] Comment on above: Performed By: #### C BC #### [facility] [address] [place] [address] Dr. Isaías Plunkett MCV (RBC) [Entitic vol] 82.0 fL Normal 81.0-99.0 [facility] Comment on above: Performed By: #### C BC #### [facility] [address] [place] [address] Dr. Isaías Plunkett MONO # 0.4 103/ul Normal 0.3-0.8 [facility] Comment on above: Performed By: #### C BC #### [facility] [address] [place] [address] Dr. Isaías Plunkett Monocytes/100 WBC (Bld) 6.1 % Normal 1.7-12.[address] [facility] Comment on above: Performed By: #### C BC #### [facility] [address] [place] [address] Dr. Isaías Plunkett NEUT # 5.1 103/ul Normal 1.4-6.5 [facility] Comment on above: Performed By: #### C BC #### [facility] [address] [address] [address] Isaías Plunkett Neutrophils/100 WBC (Bld) 75.5 % Critically high 43.0-75.0 [facility] Comment on above: Performed By: #### C BC #### [facility] [address] [place] [address] Dr. Isaías Plunkett Platelet mean volume (Bld) [Entitic vol] 9.4 fL Critically low 9.5-13.5 [facility] Comment on above: Performed By: #### C BC #### [facility] [address] [address] [address] Isaías Plunkett PLT 257 103/ul Normal 150-450 [facility] Comment on above: Performed By: #### C BC #### [facility] [address] [place] [address] Dr. Isaías Plunkett RBC 5.01 106/ul Normal 4.20-5.40 [facility] Comment on above: Performed By: #### C BC #### [facility] [address] [place] [address] Dr. Isaías Plunkett WBC 6.7 103/ul Normal 4.0-11.0 [facility] Comment on above: Performed By: #### C BC #### [facility] [address] [place] [address] Dr. Isaías Plunkett CULTURE URINEon 08-19-2022 CULTURE URINE Culture Observations : LIGHT GROWTH OF MIXED GENITAL AMI. NO POTENTIAL PATHOGENS SEEN. Normal [facility] Comment on above: Performed By: #### [id number] #### [facility] [address] [place] [address] Dr. Isaías Plunkett ER URINE PROFILEon 2 Bilirubin Ql (U) Negative Normal NEGATIVE [facility] Comment on above: Performed By: #### P REGUNATANAELR, UMICRO #### [facility] [address] [place] [address] Dr. Isaías Plunkett Clarity (U) CLEAR Normal CLEAR [facility] Comment on above: Performed By: #### P REGNATANAEL ZarcoR, UMICRO #### [facility] [address] [address] [address] Isaías Plunkett Color (U) YELLOW Normal YELLOW [facility] Comment on above: Performed By: #### P REGU, ERUR, UMICRO #### [facility] [address] [address] [address] Isaías MCFADDEN A micrscopic examination will be performed if indicated. Normal [facility] Comment on above: Performed By: #### P REGU, ERUR, UMICRO #### [facility] [address] [address] [address] Isaías Plunkett Glucose Ql (U) 500 mg/dl Abnormal NEGATIVE [facility] Comment on above: Performed By: #### P REGU, ERUR, UMICRO #### [facility] [address] [place] [address] Dr. Isaías Plunkett Hemoglobin Ql (U) Negative Normal NEGATIVE [facility] Comment on above: Performed By: #### P REGU, ERUR, UMICRO #### [facility] [address] [address] [address] Isaías Plunkett Ketones Ql (U) TRACE Abnormal NEGATIVE [facility] Comment on above: Performed By: #### P REGU, ERUR, UMICRO #### [facility] [address] [address] [address] Isaías Plunkett LEUKOCYTES TRACE Abnormal NEGATIVE [facility] Comment on above: Performed By: #### P REGU, ERUR, UMICRO #### [facility] [address] [address] [address] Isaías Plunkett Nitrite Ql (U) Negative Normal NEGATIVE [facility] Comment on above: Performed By: #### P REGU, ERUR, UMICRO #### [facility] [address] [address] [address] Isaías Plunkett pH (U) 6.0 [pH] Normal 5-[address] [facility] Comment on above: Performed By: #### P REGU, ERUR, UMICRO #### [facility] [address] [address] [address] Isaías Plunkett SPEC GRAVITY 1.025 Normal 1.005-<=1.025 [facility] Comment on above: Performed By: #### P REGU ERUR, UMICRO #### [facility] [address] [address] [address] Isaías Plunkett UA PROTEIN Negative Normal NEGATIVE/ TRACE [facility] Comment on above: Performed By: #### P REGU ERUR, UMICRO #### [facility] [address] [address] [address] Isaías Plunkett UR MICRO IND INDICATED Normal [facility] Comment on above: Performed By: #### P REGUNATANAELR UMICRO #### [facility] [address] [place] [address] Dr. Isaías Plunkett Urobilinogen Qn (U) 2.0 {Katherine'U}/dL Abnormal 0.2 - 1. 0 [facility] Comment on above: Performed By: #### P REGU ERUR, UMICRO #### [facility] [address] [place] [address] Dr. Isaías Plunkett LIPASEon 08-19-2022 Lipase [Catalytic activity/Vol] 49.0 U/L Critically low 73.0-393.0 [facility] Comment on above: Performed By: #### P HVEN #### [facility] [address] [place] [address] Dr. Isaías Plunkett PH VENOUS BLOODon 08-19-2022 PCO2 VENOUS 41.0 mmHg Normal 40.0-52.0 [facility] Comment on above: Performed By: #### P HVEN #### [facility] [address] [place] [address] Dr. Isaías Plunkett pH VENOUS 7.415 Normal 7.330-7.430 [facility] Comment on above: Performed By: #### P HVEN #### [facility] [address] [address] [address] Isaías Plunkett POINT OF CARE GLUCOSEon Glucose [Mass/Vol] 187 mg/dL Critically high 74-106 [facility] Comment on above: Performed By: #### P OCGLUC #### [facility] [address] [place] [address] Dr. Isaías Plunkett URon 08-19-2022 , QUAL Negative Normal NEGATIVE [facility] Comment on above: Performed By: #### P REGU, ERUR, UMICRO #### [facility] [address] [place] [address] Dr. Isaías Plunkett PROF 14(COMP METB)on 022 Albumin [Mass/Vol] 3.5 g/dL Normal 3.4-5.0 [facility] Comment on above: Performed By: #### P HVEN #### [facility] [address] [place] [address] Dr. Isaías Plunkett Albumin/Globulin [Mass ratio] 0.9 {ratio} Normal [facility] Comment on above: Performed By: #### P HVEN #### [facility] [address] [place] [address] Dr. Isaías Plunkett ALP [Catalytic activity/Vol] 54 U/L Normal 46-116 [facility] Comment on above: Performed By: #### P HVEN #### [facility] [address] [place] [address] Dr. Isaías Plunkett ALT [Catalytic activity/Vol] 82 U/L Critically high 14-59 [facility] Comment on above: Performed By: #### P HVEN #### [facility] [address] [place] [address] Dr. Isaías Plunkett Anion gap [Moles/Vol] 13.1 mmol/L Normal [facility] Comment on above: Performed By: #### P HVEN #### [facility] [address] [place] [address] Dr. Isaías Plunkett AST [Catalytic activity/Vol] 41 U/L Critically high 15-37 [facility] Comment on above: Performed By: #### P HVEN #### [facility] [address] [place] [address] Dr. Isaías Plunkett Bilirubin [Mass/Vol] 0.6 mg/dL Normal 0.2-1.0 [facility] Comment on above: Performed By: #### P HVEN #### [facility] [address] [address] [address] Isaías Plunkett Calcium [Mass/Vol] 8.9 mg/dL Normal 8.5-10.1 [facility] Comment on above: Performed By: #### P HVEN #### [facility] [address] [address] [address] Isaías Plunkett Chloride [Moles/Vol] 99 mmol/L Normal 98-107 [facility] Comment on above: Performed By: #### P HVEN #### [facility] [address] [address] [address] Isaías Plunkett CO2 [Moles/Vol] 25.5 mmol/L Normal 21.0-32.0 [facility] Comment on above: Performed By: #### P HVEN #### [facility] [address] [address] [address] Isaías Plunkett Creatinine [Mass/Vol] 0.66 mg/dL Normal 0.55-1.02 [facility] Comment on above: Performed By: #### P HVEN #### [facility] [address] [place] [address] Dr. Isaías Plunkett EGFR-AF CHINESE >60 Normal >=60 [facility] Comment on above: Performed By: #### P HVEN #### [facility] [address] [address] [address] Isaías Plunkett EGFR-NON AF CHINESE >60 Normal >=60 [facility] Comment on above: Performed By: #### P HVEN #### [facility] [address] [address] [address] Isaías Plunkett Globulin (S) [Mass/Vol] 3.9 g/dL Normal [facility] Comment on above: Performed By: #### P HVEN #### [facility] [address] [address] [address] Isaías Plunkett Glucose [Mass/Vol] 212 mg/dL Critically high 74-106 T [facility] Comment on above: Performed By: #### P HVEN #### [facility] [address] [address] [address] Isaías Plunkett Potassium [Moles/Vol] 3.6 mmol/L Normal 3.5-5.1 [facility] Comment on above: Performed By: #### P HVEN #### [facility] [address] [address] [address] Isaías Plunkett Protein [Mass/Vol] 7.4 g/dL Normal 6.4-8.2 [facility] Comment on above: Performed By: #### P HVEN #### [facility] [address] [address] [address] Isaías Plunkett Sodium [Moles/Vol] 134 mmol/L Critically low 136-145 [facility] Comment on above: Performed By: #### P HVEN #### [facility] [address] [address] [address] Isaías Plunkett Urea nitrogen [Mass/Vol] 11.0 mg/dL Normal 7.0-18.0 [facility] Comment on above: Performed By: #### P HVEN #### [facility] [address] [address] [address] Isaías Plunkett Urea nitrogen/Creatinine [Mass ratio] 16.7 mg/mg Normal [facility] Comment on above: Performed By: #### P HVEN #### [facility] [address] [address] [address] Isaías Plunkett TROPONIN, HIGH SENSITIVITYon 08-19-2022 HSTROP 4.5 pg/mL Normal 4.0-51.3 [facility] Comment on above: Result Comment: CUT- OFF POINTS HAVE BEEN ESTABLISHED BASED ON THE FOURTH UNIVERSAL DEFINITIONS OF MYOCARDIAL INFARCTION. THE UPPER REFERENCE LIMIT (URL) OF TROPONIN, DEFINED THE 99TH PERCENTILE OF cTnI DISTRIBUTION IN A REFERENCE POPULATION, HAS BEEN CONFIRMED THE DECISION THRESHOLD FOR AL DIAGNOSIS. Performed By: #### P HVEN #### [facility] [address] [address] [address] Isaías Plunkett URINE MICROSCOPIC ONLYon BACTERIA TRACE Abnormal NONE SEEN [facility] Comment on above: Performed By: #### P REGU, ERUR, UMICRO #### [facility] [address] [address] [address] Isaías Plunkett Bacteria identified Cx Nom (U) INDICATED Normal [facility] Comment on above: Performed By: #### P REGU, ERUR, UMICRO #### [facility] [address] [address] [address] Isaías Plunkett CAST NONE SEEN Normal NONE SEEN [facility] Comment on above: Performed By: #### P REGU, ERUR, UMICRO #### [facility] [address] [address] [address] Isaías Plunkett Crystals LM Nom (Urine sed) NONE SEEN Normal NONE SEEN [facility] Comment on above: Performed By: #### P REGU, ERUR, UMICRO #### [facility] [address] [address] [address] Isaías Plunkett Epithelial cells LM Ql (Urine sed) FEW Abnormal NONE SEEN /RARE [facility] Comment on above: Performed By: #### P REGU, ERUR, UMICRO #### [facility] [address] [address] [address] Isaías Plunkett MUCOUS NONE SEEN Normal NONE SEEN [facility] Comment on above: Performed By: #### P REGU, ERUR, UMICRO #### [facility] [address] [address] [address] Isaías Plunkett RBC 0-2 Normal 0-[address] [facility] Comment on above: Performed By: #### P REGU, ERUR, UMICRO #### [facility] [address] [address] [address] Isaías Plunkett WBC 5-10 Abnormal NONE SEEN [facility] Comment on above: Performed By: #### P REGU, ERUR, UMICRO #### [facility] [address] [address] [address] Isaías Plunkett Vital Signs Date Time Vital Sign Value Performing Clinician Jennii lit 09-05-2024 14:40-0500 Body height 160 cm Vianey Tilley MD Work Phone: [facility] 09-05-2024 14:40-0500 Body mass index (BMI) [Ratio] 34.19 kg/m2 Vianey Tilley MD Work Phone: [facility] 09-05-2024 14:40-0500 Body weight 87.54 kg Vianey Tilley MD Work Phone: [facility] 09-05-2024 14:40-0500 Diastolic blood pressure 64 mm[Hg] Vianey Tilley MD Work Phone: [facility] 09-05-2024 14:40-0500 Systolic blood pressure 102 mm[Hg] Vianey Tilley MD Work Phone: [facility] Encounters Encounter Date Encounter Type Care Provider Facility Start: 09-05-2024 End: 09-05-2024 Office outpatient new 45 minutes Vianey Tilley MD Work Phone: [facility] Comment on above: 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 (Primary Dx); Bilateral impacted cerumen Start: 09-05-2024 End: 09-05-2024 ambulatory VIANEY TILLEY Not Available Start: 09-05-2024 End: 09-05-2024 Bamboo flowsheet Vianey Tilley MD Work Phone: [facility] Start: 09-05-2024 End: 09-05-2024 Bamboo flowsheet Vianey Tilley MD Work Phone: [facility] Start: 11-22-2023 Chart abstracting Pavan Johnson DO Work Phone: [facility] Start: 12-28-2022 End: 12-29-2022 ambulatory POLY ARCHIBALD Facility:[facility] Start: 12-08-2022 End: 12-08-2022 ambulatory PAVAN JOHNSON Facility:[facility] Start: 11-27-2022 End: 11-28-2022 ambulatory POLY ARCHIBALD Facility:[facility] Start: 10-19-2022 End: 10-19-[address] SUSI MALONEY . Facility:[facility] Start: 09-12-2022 Encounter for genera l adult medical examination without abnormal findings POLY ARCHIBALD [facility] Start: 09-09-2022 End: 09-10-2022 ambulatory POLY ARCHIBALD Facility:[facility] Start: 09-09-2022 End: 09-10-2022 Encounter for general adult medical examination without abnormal findings POLY ARCHIBALD Facility:[facility] Start: 08-19-2022 End: 08-19-2022 ambulatory NONE LISTED REQUEST Facility:[facility] Start: 07-20-2022 End: 07-21-2022 ambulatory CHARLIE SALINAS Facility:[facility] Plan of Treatment Date Care Activity Detail Author Start: 12-15-2023 End: 12-15-2023 Patient encounter procedure 12/15/2023 3:00 PM EST Office Visit [facility] [address] [place] [id number] Pavan Johnson DO [address] [place] [address] [facility] Payers Date Payer Category Payer Managed Care HMO (unspecified) [employer] [id number] 2024 Unknown [id number] 2022 Private Health Insurance [facility]ICA[facility] [id number] 1987 Unknown [id number] 593 1987 Unknown [id number] 593 1987 Unknown [id number] 593 1987 Unknown [id number] 593 1987 Unknown [id number] 593 1987 Unknown [id number]. 593 1987 Unknown [id number] [id number] 593 1987 Unknown [id number] 1259 1959 Unknown [id number] 1959 Unknown [id number] 1959 Unknown [id number] Social History Date Type Detail Facility Start: 11-22-2023 End: 09-05-2024 Tobacco smoking status [facility] Ex-smoker [facility] History of tobacco use Current smoker [facility] History of tobacco use Cigarette Smoker [facility] Start: 11-22-2023 End: 09-05-2024 Alcohol intake Current drinker of alcohol (finding) [facility] Start: 11-22-2023 Alcohol Comment occasional [facility] Start: 1985 Sex Assigned At Not on file [facility] Start: 09-05-2024 Gender identity Not on file [facility] Start: 09-05-2024 Tobacco use and exposure Smokeless t obacco non-user [facility] Start: 09-05-2024 History of Social function [facility] History of Present illness Narrative 09-05-2024 Vianey Tilley MD - 09/05/2024 2:40 PM EST Note Date & Type Note Facility 09-05-2024 History of Presen t illness Narrative Subjective Patient ID: Lilian Whiteside is a 39 y.o. female who presents for Ear Problem and Sinusitis Pt states she has had sharon ear crusting and draining for 3 weeks. Denies HL. Tx with augmentin which helped a bit. Review of Systems All other systems reviewed and are negative. Family History Problem Relation Name Age of Onset Hyperlipidemia Mother Hyperlipidemia Father Diabetes Father Hypertension Father Stroke Father Diabetes Sibling Cancer Sibling Diabetes Paternal Grandmother Cancer Paternal Grandfather Diabetes Paternal Grandfather Active Ambulatory Problems Diagnosis Date Noted Acute sinusitis 08/31/2024 Bilateral otitis media 08/31/2024 Diabetes mellitus ([facility]) 08/31/2024 Gastroesophageal reflux disease 08/31/2024 Obesity 08/31/2024 Resolved Ambulatory Problems Diagnosis Date Noted No Resolved Ambulatory Problems Past Medical History: Diagnosis Date DM (diabetes mellitus) ([facility]) Obesity (BMI 30-39.9) Well woman exam Past Surgical History: Procedure Laterality Date SECTION, LOW TRANSVERSE 07/2021 Allergies Allergen Reactions Erythromycin Base Other Reaction(s): Rash Current Outpatient Medications on File Prior to Visit Medication Sig Dispense Refill albuterol HFA 90 mcg/act inhaler inhale 2 puffs by mouth and INTO THE LUNGS every 4 hours if neede... (REFER TO PRESCRIPTION NOTES). Levonorgestrel (Mirena, 52 MG,) 20 MCG/DAY intrauterine device as directed Intrauterine metFORMIN (Glucophage) 500 MG tablet Daily omeprazole (PriLOSEC) [address] capsule 1 (one) time each day at the same time No current facility-administered medications on file prior to visit. Objective Last Recorded Vitals Vitals: 09/05/24 1440 BP: 102/64 ENT Physical Exam Constitutional Appearance: patient appears well-developed, well-nourished and well-groomed, Head and Face Appearance: head appears normal and face appears atraumatic; Ear Ear Canals: right ear canal normal; left ear canal normal; Tympanic Membranes: right tympanic membrane normal; left tympanic membrane normal; Ear comments: Copious sharon cerumen Nose External Nose: nares patent bilaterally; external nose normal; Internal Nose: septum normal; Oral Cavity/Oropharynx Tongue: normal; Oral mucosa: normal; Hard palate: normal; Soft palate: normal; Tonsils: normal; Neck Neck: neck normal; neck palpation normal; Thyroid: thyroid normal; Respiratory Inspection: breathing unlabored; normal breathing rate; Auscultation: breath sounds are clear; Cardiovascular Inspection: extremities are warm and well perfused; no peripheral edema present; Auscultation: regular rate and rhythm; Patient ID: Lilian Whiteside is a 39 y.o. female. Procedures Cerumen was removed from the ears using binocular microscopy under micro with suction\ Assessment/Plan Diagnoses and all orders for this visit: Other infective chronic otitis externa of both ears Bilateral impacted cerumen Il ears debrided. Tx with alternating ciprodex and clotrimazole. documented in this encounter [facility] Evaluation note Note Date & Type Note Facility Evaluation note Diagnosis Other infective chronic otitis externa of both ears- Primary Bilateral impacted cerumen Impacted cerumen documented in this encounter [facility] Summary Purpose Family History No Family History Records FoundNo Family History Records Found Advance Directives No Advanced Directives Records FoundNo Advanced Directives Records Found Additional Source Comments INFORMATION SOURCE (unrecogn ized section and content) DATE CREATED AUTHOR 01/05/2023 [facility] DATE CREATED AUTHOR AUTHOR'S ORGANIZ ATION 09/08/2024 [facility] Care Teams (unrecognized sec tion and content) Analytics Associate Relationship Specialty Start Date End Date Poly Archibald MD [address] [place] [address] Referring Physician Family Medicine 08/28/24 Analytics Associate Relationship Specialty Start Date End Date Poly Archibald MD [address] [place] [address] Referring Physician Family Medicine 08/28/24 Reason for Visit (unrecogniz ed section and content) Reason Comments Ear Problem Sinusitis FOR RECORDS PERTAINING TO PATIENTS WHO ARE [...] BE BASED ON THE PRIMARY CLINICAL RECORDS. [facility] provides no warranty or guarantee of the accuracy or completeness of information in this document.
== END 2024-10-23 12:41 | disposition home or self-care (01) ==
PROVIDERS: Emergency Provider Emergency Medicine; PCP Nurse Practitioner Family
DX: J06.9 Acute upper respiratory infection, unspecified (principal)
CPT/HCPCS: 71045; 87070; 87804; 87811; 87880; 99284

== ENCOUNTER 2024-11-17 10:55 | Outpatient (OUT) | payer OTHER, SELFPAY ==
--- OUTSIDE RECORDS SUMMARY | 2024-11-17 11:23 | XMS_ITS | CCD ---
Author Organization [facility] Care Team Providers Care Ob Tech Name Role Phone REQUEST, DR NONE LISTED [...] (4 sources) Erythromycin Drug Allergy 05-31-[address] 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 . Normal [facility] Comment on above: Result Comment: Perf ormed at: WB Performed By: #### [id number] #### [facility] [address] [place] [address] Dr. Isaías Plunkett Age Gdln ACOG Testing 30-65 Normal [facility] Comment on above: Performed By: #### [id number] #### [facility] [address] [address] [address] Isaías Plunkett DIAGNOSIS: Comment Normal [facility] Comment on above: Result Comment: NEGA TIVE FOR INTRAEPITHELIAL LESION OR MALIGNANCY. Performed at: WB Performed By: #### [id number] #### [facility] [address] [place] [address] Dr. Isaías Plunkett HPV Aptima Negative Normal Negative [facility] Comment on above: Result Comment: This nucleic acid amplification test detects fourteen high-risk HPV types (16,18,31,33,35,39,45,51,52,56,58,59,66,68) without differentiation. Performed at: =G Performed By: #### [id number] #### [facility] [address] [address] [address] Isaías Plunkett HPV Genotype Reflex Comment Normal [facility] Comment on above: Result Comment: Crit eria not met, HPV Genotype not performed. Performed at: WB Performed By: #### [id number] #### [facility] [address] [place] [address] Dr. Isaías Plunkett Methodology: Comment Normal [facility] Comment on above: Result Comment: This liquid based ThinPrep(R) pap test was screened with the use of an image guided system. Performed at: WB Performed By: #### [id number] #### [facility] [address] [place] [address] Dr. Isaías Plunkett Note: Comment Normal [facility] Comment on above: Result Comment: The Pap smear is a screening test designed to aid in the detection of premalignant and malignant conditions of the uterine cervix. It is not a diagnostic procedure and should not be used as the sole means of detecting cervical cancer. Both false-positive and false-negative reports do occur. . Performed at: WB Performed By: #### [id number] #### [facility] [address] [place] [address] Dr. Isaías Plunkett Performed by: Comment Normal [facility] Comment on above: Result Comment: Dillon Gonsalez, Brilliandeer Lopper (ASCP) Performed at: WB Performed By: #### [id number] #### [facility] [address] [place] [address] Dr. Isaías Plunkett Specimen adequacy: Comment Normal [facility] Comment on above: Result Comment: Sati sfactory for evaluation. Endocervical and/or squamous metaplastic cells (endocervical component) are present. Performed at: WB Performed By: #### [id number] #### [facility] [address] [place] [address] Dr. Isaías Plunkett GLYCOHEMOGLOBIN A1Con 2022 ADA RECOMMENDATION SEE BELOW Normal [facility] Comment on above: Result Comment: ADA RECOMMENDED LIMIT 4.0 - 6.0 ADA THERAPEUTIC TARGET < 7.0 ACTION SUGGESTED > 7.0 Performed By: #### P HVEN #### [facility] [address] [place] [address] Dr. Isaías Plunkett Glucose [Mass/Vol] 197 mg/dL Normal [facility] Comment on above: Performed By: #### P HVEN #### [facility] [address] [place] [address] Dr. Isaías Plunkett HbA1c (Bld) [Mass fraction] 8.5 % Critically high 4.5-6.2 [facility] Comment on above: Performed By: #### P HVEN #### [facility] [address] [place] [address] Dr. Isaías Plunkett Covid-19 PCR ([facility])on SARS-CoV-2 (COVID-19) RNA CHIOMA+probe Ql (Unsp spec) Not detected Normal NOT DETECTED [facility] Comment on above: Result Comment: When diagnostic [...] for this test is supported by the [place] of Health and Human Service's declaration that [...] used). Performed By: #### P HVEN #### [facility] [address] [place] [address] Dr. Isaías Plunkett INFLUENZA A AND B AGon 10-19 [facility] SEE BELOW Normal [facility] Comment on above: Result Comment: Nega tive for Flu A protein angiten. Infection due to Flu A cannot be ruled out. Flu A angiten in the sample may be below the detection limit of the test. Performed By: #### I NFLUAB #### [facility] [address] [place] [address] Dr. Isaías Plunk[facility] Normal [facility] Comment on above: Result Comment: Nega tive for Flu B protein antigen. Infection due to Flu B cannot be ruled out. Flu B antigen in the sample may be below the detection limit of the test. Performed By: #### I NFLUAB #### [facility] [address] [place] [address] Dr. Isaías Plunkett INFLUENZA A AG Negative Normal NEGATIVE SEE COMMENT [facility] Comment on above: Performed By: #### I NFLUAB #### [facility] [address] [place] [address] Dr. Isaías Plunkett INFLUENZA B AG Negative Normal NEGATIVE SEE COMMENT [facility] Comment on above: Performed By: #### I NFLUAB #### [facility] [address] [place] [address] Dr. Isaías Plunkett INSULINon 09-10-2022 Insulin 36.6 uIU/mL Critically high 2.6-24.9 [facility] Comment on above: Performed By: #### [id number] #### [facility] [address] [place] [address] Dr. Isaías Plunkett CBC AUTO DIFFon 09-09-2022 BASO # 0.0 103/ul Normal 0.0-0.1 [facility] Comment on above: Performed By: #### C BC #### [facility] [address] [place] [address] Dr. Isaías Plunkett Basophils/100 WBC (Bld) 0.4 % Normal 0.2-2.0 [facility] Comment on above: Performed By: #### C BC #### [facility] [address] [place] [address] Dr. Isaías Plunkett EO # 0.2 103/ul Normal 0.0-0.7 [facility] Comment on above: Performed By: #### C BC #### [facility] [address] [place] [address] Dr. Isaías Plunkett Eosinophils/100 WBC (Bld) 2.0 % Normal 0.9-7.0 [facility] Comment on above: Performed By: #### C BC #### [facility] [address] [place] [address] Dr. Isaías Plunkett Erythrocyte distribution width (RBC) [Ratio] 13.2 % Normal 11.0-15.0 [facility] Comment on above: Performed By: #### C BC #### [facility] [address] [place] [address] Dr. Isaías Plunkett Hematocrit (Bld) [Volume fraction] 39.0 % Normal 36.0-48.0 [facility] Comment on above: Performed By: #### C BC #### [facility] [address] [place] [address] Dr. Isaías Plunkett Hemoglobin (Bld) [Mass/Vol] 12.9 g/dL Normal 12.0-16.0 [facility] Comment on above: Performed By: #### C BC #### [facility] [address] [place] [address] Dr. Isaías Plunkett IG # 0.02 10e3/ul Normal 0.00-0.03 [facility] Comment on above: Performed By: #### C BC #### [facility] [address] [place] [address] Dr. Iasías Plunkett IG % 0.2 % Normal 0.0-0.5 [facility] Comment on above: Performed By: #### C BC #### [facility] [address] [place] [address] Dr. Isaías Plunkett LYMPH # 3.2 103/ul Normal 1.2-3.8 [facility] Comment on above: Performed By: #### C BC #### [facility] [address] [place] [address] Dr. Isaías Plunkett Lymphocytes/100 WBC (Bld) 40.0 % Normal 20.5-60.0 [facility] Comment on above: Performed By: #### C BC #### [facility] [address] [place] [address] Dr. Isaías Plunkett MANUAL DIFF REQ NO Normal [facility] Comment on above: Performed By: #### C BC #### [facility] [address] [place] [address] Dr. Isaías Plunkett MCH (RBC) [Entitic mass] 27.1 pg Normal 26.7-34.0 [facility] Comment on above: Performed By: #### C BC #### [facility] [address] [place] [address] Dr. Isaías Plunkett MCHC (RBC) [Mass/Vol] 33.1 g/dL Normal 29.9-35.2 [facility] Comment on above: Performed By: #### C BC #### [facility] [address] [place] [address] Dr. Isaías Plunkett MCV (RBC) [Entitic vol] 81.9 fL Normal 81.0-99.0 [facility] Comment on above: Performed By: #### C BC #### [facility] [address] [place] [address] Dr. Isaías Plunkett MONO # 0.5 103/ul Normal 0.3-0.8 [facility] Comment on above: Performed By: #### C BC #### [facility] [address] [place] [address] Dr. Isaías Plunkett Monocytes/100 WBC (Bld) 6.2 % Normal 1.7-12.0 [facility] Comment on above: Performed By: #### C BC #### [facility] [address] [place] [address] Dr. Isaías Plunkett NEUT # 4.1 103/ul Normal 1.4-6.5 [facility] Comment on above: Performed By: #### C BC #### [facility] [address] [place] [address] Dr. Isaías Plunkett Neutrophils/100 WBC (Bld) 51.2 % Normal 43.0-75.0 [facility] Comment on above: Performed By: #### C BC #### [facility] [address] [place] [address] Dr. Isaías Plunkett Platelet mean volume (Bld) [Entitic vol] 9.5 fL Normal 9.5-13.5 [facility] Comment on above: Performed By: #### C BC #### [facility] [address] [place] [address] Dr. Isaías Plunkett PLT 275 103/ul Normal 150-[address] [facility] Comment on above: Performed By: #### C BC #### [facility] [address] [place] [address] Dr. Isaías Plunkett RBC 4.76 106/ul Normal 4.20-5.[address] [facility] Comment on above: Performed By: #### C BC #### [facility] [address] [place] [address] Dr. Isaías Plunkett WBC 8.1 103/ul Normal 4.0-11.[address] [facility] Comment on above: Performed By: #### C BC #### [facility] [address] [address] [address] Isaías Plunkett FREE THYROXINE INDEX T7on FTI 2.05 Normal 1.30-4.50 [facility] Comment on above: Performed By: #### P HVEN #### [facility] [address] [address] [address] Isaías Plunkett T3U 31.0 % Normal 30.0-39.0 [facility] Comment on above: Performed By: #### P HVEN #### [facility] [address] [address] [address] Isaías Plunkett T4 [Mass/Vol] 6.60 ug/dL Normal 4.80-13.90 [facility] Comment on above: Performed By: #### P HVEN #### [facility] [address] [place] [address] Dr. Isaías Plunkett GLYCOHEMOGLOBIN A1Con 2021 ADA RECOMMENDATION SEE BELOW Normal [facility] Comment on above: Result Comment: ADA RECOMMENDED LIMIT 4.0 - 6.0 ADA THERAPEUTIC TARGET < 7.0 ACTION SUGGESTED > 7.0 Performed By: #### A 1C #### [facility] [address] [place] [address] Dr. Isaías Plunkett Glucose [Mass/Vol] 226 mg/dL Normal [facility] Comment on above: Performed By: #### A 1C #### [facility] [address] [address] [address] Isaías Plunkett HbA1c (Bld) [Mass fraction] 9.5 % Critically high 4.5-6.2 [facility] Comment on above: Performed By: #### A 1C #### [facility] [address] [place] [address] Dr. Isaías Plunkett IRONon 09-09-2022 Iron [Mass/Vol] 42.0 ug/dL Critically low 50.0-170.0 [facility] Comment on above: Performed By: #### P HVEN #### [facility] [address] [place] [address] Dr. Isaías Plunkett LIPID PROFILEon 09-09-2022 CHOL-HDL RATIO NORM SEE BELOW Normal [facility] Comment on above: Result Comment: 3.3 - 4.4 LOW RISK 4.4 - 7.1 AVERAGE RISK 7.1 - 11.0 MODERATE RISK >11.0 HIGH RISK Performed By: #### P HVEN #### [facility] [address] [address] [address] Isaías Plunkett Cholesterol [Mass/Vol] 199 mg/dL Normal <=200 [facility] Comment on above: Performed By: #### P HVEN #### [facility] [address] [address] [address] Isaías Plunkett Cholesterol in HDL [Mass/Vol] 38 mg/dL Critically low 40-60 [facility] Comment on above: Performed By: #### P HVEN #### [facility] [address] [address] [address] Isaías Plunkett Cholesterol in LDL [Mass/Vol] 124.8 mg/dL Normal [facility] Comment on above: Performed By: #### P HVEN #### [facility] [address] [address] [address] Isaías Plunkett Cholesterol.total/Cho lesterol in HDL [Mass ratio] 5.2 {ratio} Normal [facility] Comment on above: Performed By: #### P HVEN #### [facility] [address] [address] [address] Isaías Plunkett HDL NORMAL > or = 60 mg/dl - LO W CARDIOVASCULAR RISK <40 mg/dl - HIGH CARDIOVASCULAR RISK Normal [facility] Comment on above: Performed By: #### P HVEN #### [facility] [address] [address] [address] Isaías Plunkett LDL CALC NORMAL SEE BELOW Normal [facility] Comment on above: Result Comment: <100 mg/dl OPTIMAL 100 - 129 mg/dl NEAR OR ABOVE OPTIMAL 130 - 159 mg/dl BORDERLINE HIGH 160 - 189 mg/dl HIGH >190 mg/dl VERY HIGH Performed By: #### P HVEN #### [facility] [address] [address] [address] Isaías Plunkett Triglyceride [Mass/Vol] 181 mg/dL Critically high <=150 [facility] Comment on above: Performed By: #### P HVEN #### [facility] [address] [place] [address] Dr. Isaías Plunkett VLDL CALC 36.2 mg/dL Normal [facility] Comment on above: Performed By: #### P HVEN #### [facility] [address] [place] [address] Dr. Isaías Plunkett PROF 14(COMP METB)on 022 Albumin [Mass/Vol] 3.6 g/dL Normal 3.4-5.0 [facility] Comment on above: Performed By: #### P HVEN #### [facility] [address] [place] [address] Dr. Isaías Plunkett Albumin/Globulin [Mass ratio] 0.9 {ratio} Normal [facility] Comment on above: Performed By: #### P HVEN #### [facility] [address] [place] [address] Dr. Isaías Plunkett ALP [Catalytic activity/Vol] 54 U/L Normal 46-116 [facility] Comment on above: Performed By: #### P HVEN #### [facility] [address] [place] [address] Dr. Isaías Plunkett ALT [Catalytic activity/Vol] 64 U/L Critically high 14-59 [facility] Comment on above: Performed By: #### P HVEN #### [facility] [address] [address] [address] Isaías Plunkett Anion gap [Moles/Vol] 13.0 mmol/L Normal [facility] Comment on above: Performed By: #### P HVEN #### [facility] [address] [place] [address] Dr. Isaías Plunkett AST [Catalytic activity/Vol] 17 U/L Normal 15-37 [facility] Comment on above: Performed By: #### P HVEN #### [facility] [address] [place] [address] Dr. Isaías Plunkett Bilirubin [Mass/Vol] 0.2 mg/dL Normal 0.2-1.0 [facility] Comment on above: Performed By: #### P HVEN #### [facility] [address] [place] [address] Dr. Isaías Plunkett Calcium [Mass/Vol] 8.8 mg/dL Normal 8.5-10.1 [facility] Comment on above: Performed By: #### P HVEN #### [facility] [address] [address] [address] Isaías Plunkett Chloride [Moles/Vol] 100 mmol/L Normal 98-107 [facility] Comment on above: Performed By: #### P HVEN #### [facility] [address] [place] [address] Dr. Isaías Plunkett CO2 [Moles/Vol] 26.2 mmol/L Normal 21.0-32.0 [facility] Comment on above: Performed By: #### P HVEN #### [facility] [address] [place] [address] Dr. Isaías Plunkett Creatinine [Mass/Vol] 0.59 mg/dL Normal 0.55-1.02 [facility] Comment on above: Performed By: #### P HVEN #### [facility] [address] [place] [address] Dr. Isaías Plunkett EGFR-AF MONEGASQUE >60 Normal >=60 [facility] Comment on above: Performed By: #### P HVEN #### [facility] [address] [place] [address] Dr. Isaías Plunkett EGFR-NON AF MONEGASQUE >60 Normal >=60 [facility] Comment on above: Performed By: #### P HVEN #### [facility] [address] [place] [address] Dr. Isaías Plunkett Globulin (S) [Mass/Vol] 4.0 g/dL Normal [facility] Comment on above: Performed By: #### P HVEN #### [facility] [address] [place] [address] Dr. Isaías Plunkett Glucose [Mass/Vol] 188 mg/dL Critically high 74-106 [facility] Comment on above: Performed By: #### P HVEN #### [facility] [address] [address] [address] Isaías Plunkett Potassium [Moles/Vol] 4.2 mmol/L Normal 3.5-5.1 [facility] Comment on above: Performed By: #### P HVEN #### [facility] [address] [address] [address] Isaías Plunkett Protein [Mass/Vol] 7.6 g/dL Normal 6.4-8.2 [facility] Comment on above: Performed By: #### P HVEN #### [facility] [address] [address] [address] Isaías Plunkett Sodium [Moles/Vol] 135 mmol/L Critically low 136-145 [facility] Comment on above: Performed By: #### P HVEN #### [facility] [address] [place] [address] Dr. Isaías Plunkett Urea nitrogen [Mass/Vol] 9.0 mg/dL Normal 7.0-18.0 [facility] Comment on above: Performed By: #### P HVEN #### [facility] [address] [address] [address] Isaías Plunkett Urea nitrogen/Creatinine [Mass ratio] 15.3 mg/mg Normal [facility] Comment on above: Performed By: #### P HVEN #### [facility] [address] [place] [address] Dr. Isaías Plunkett TSHon 09-09-2022 TSH 2.268 uIU/mL Normal 0.358-3.740 [facility] Comment on above: Performed By: #### P HVEN #### [facility] [address] [place] [address] Dr. Isaías Plunkett CBC AUTO DIFFon 08-19-2022 BASO # 0.0 103/ul Normal 0.0-0.1 [facility] Comment on above: Performed By: #### C BC #### [facility] [address] [place] [address] Dr. Isaías Plunkett Basophils/100 WBC (Bld) 0.3 % Normal 0.2-2.0 [facility] Comment on above: Performed By: #### C BC #### [facility] [address] [place] [address] Dr. Isaías Plunkett EO # 0.0 103/ul Normal 0.0-0.7 [facility] Comment on above: Performed By: #### C BC #### [facility] [address] [place] [address] Dr. Isaías Plunkett Eosinophils/100 WBC (Bld) 0.4 % Critically low 0.9-7.0 [facility] Comment on above: Performed By: #### C BC #### [facility] [address] [place] [address] Dr. Isaías Plunkett Erythrocyte distribution width (RBC) [Ratio] 13.3 % Normal 11.0-15.0 [facility] Comment on above: Performed By: #### C BC #### [facility] [address] [place] [address] Dr. Isaías Plunkett Hematocrit (Bld) [Volume fraction] 41.1 % Normal 36.0-48.0 [facility] Comment on above: Performed By: #### C BC #### [facility] [address] [place] [address] Dr. Isaías Plunkett Hemoglobin (Bld) [Mass/Vol] 13.6 g/dL Normal 12.0-16.0 [facility] Comment on above: Performed By: #### C BC #### [facility] [address] [place] [address] Dr. Isaías Plunkett IG # 0.02 10e3/ul Normal 0.00-0.03 [facility] Comment on above: Performed By: #### C BC #### [facility] [address] [place] [address] Dr. Isaías Plunkett IG % 0.3 % Normal 0.0-0.5 [facility] Comment on above: Performed By: #### C BC #### [facility] [address] [place] [address] Dr. Isaías Plunkett LYMPH # 1.2 103/ul Normal 1.2-3.8 [facility] Comment on above: Performed By: #### C BC #### [facility] [address] [place] [address] Dr. Isaías Plunkett Lymphocytes/100 WBC (Bld) 17.4 % Critically low 20.5-60.0 [facility] Comment on above: Performed By: #### C BC #### [facility] [address] [place] [address] Dr. Isaías Plunkett MANUAL DIFF REQ NO Normal [facility] Comment on above: Performed By: #### C BC #### [facility] [address] [place] [address] Dr. Isaías Plunkett MCH (RBC) [Entitic mass] 27.1 pg Normal 26.7-34.0 [facility] Comment on above: Performed By: #### C BC #### [facility] [address] [place] [address] Dr. Isaías Plunkett MCHC (RBC) [Mass/Vol] 33.1 g/dL Normal 29.9-35.2 [facility] Comment on above: Performed By: #### C BC #### [facility] [address] [place] [address] Dr. Isaías Plunkett MCV (RBC) [Entitic vol] 82.0 fL Normal 81.0-99.0 [facility] Comment on above: Performed By: #### C BC #### [facility] [address] [place] [address] Dr. Isaías Plunkett MONO # 0.4 103/ul Normal 0.3-0.8 [facility] Comment on above: Performed By: #### C BC #### [facility] [address] [place] [address] Dr. Isaías Plunkett Monocytes/100 WBC (Bld) 6.1 % Normal 1.7-12.[address] [facility] Comment on above: Performed By: #### C BC #### [facility] [address] [place] [address] Dr. Isaías Plunkett NEUT # 5.1 103/ul Normal 1.4-6.5 [facility] Comment on above: Performed By: #### C BC #### [facility] [address] [address] [address] Isaías Plunkett Neutrophils/100 WBC (Bld) 75.5 % Critically high 43.0-75.0 [facility] Comment on above: Performed By: #### C BC #### [facility] [address] [place] [address] Dr. Isaías Plunkett Platelet mean volume (Bld) [Entitic vol] 9.4 fL Critically low 9.5-13.5 [facility] Comment on above: Performed By: #### C BC #### [facility] [address] [address] [address] Isaías Plunkett PLT 257 103/ul Normal 150-450 [facility] Comment on above: Performed By: #### C BC #### [facility] [address] [place] [address] Dr. Isaías Plunkett RBC 5.01 106/ul Normal 4.20-5.40 [facility] Comment on above: Performed By: #### C BC #### [facility] [address] [place] [address] Dr. Isaías Plunkett WBC 6.7 103/ul Normal 4.0-11.0 [facility] Comment on above: Performed By: #### C BC #### [facility] [address] [place] [address] Dr. Isaías Plunkett CULTURE URINEon 08-19-2022 CULTURE URINE Culture Observations : LIGHT GROWTH OF MIXED GENITAL AMI. NO POTENTIAL PATHOGENS SEEN. Normal [facility] Comment on above: Performed By: #### [id number] #### [facility] [address] [place] [address] Dr. Isaías Plunkett ER URINE PROFILEon 2 Bilirubin Ql (U) Negative Normal NEGATIVE [facility] Comment on above: Performed By: #### P REGUNATANAELR, UMICRO #### [facility] [address] [place] [address] Dr. Isaías Plunkett Clarity (U) CLEAR Normal CLEAR [facility] Comment on above: Performed By: #### P REGNATANAEL ZarcoR, UMICRO #### [facility] [address] [address] [address] Isaías Plunkett Color (U) YELLOW Normal YELLOW [facility] Comment on above: Performed By: #### P REGU, ERUR, UMICRO #### [facility] [address] [address] [address] Isaías MCFADDEN A micrscopic examination will be performed if indicated. Normal [facility] Comment on above: Performed By: #### P REGU, ERUR, UMICRO #### [facility] [address] [address] [address] Isaías Plunkett Glucose Ql (U) 500 mg/dl Abnormal NEGATIVE [facility] Comment on above: Performed By: #### P REGU, ERUR, UMICRO #### [facility] [address] [place] [address] Dr. Isaías Plunkett Hemoglobin Ql (U) Negative Normal NEGATIVE [facility] Comment on above: Performed By: #### P REGU, ERUR, UMICRO #### [facility] [address] [address] [address] Isaías Plunkett Ketones Ql (U) TRACE Abnormal NEGATIVE [facility] Comment on above: Performed By: #### P REGU, ERUR, UMICRO #### [facility] [address] [address] [address] Isaías Plunkett LEUKOCYTES TRACE Abnormal NEGATIVE [facility] Comment on above: Performed By: #### P REGU, ERUR, UMICRO #### [facility] [address] [address] [address] Isaías Plunkett Nitrite Ql (U) Negative Normal NEGATIVE [facility] Comment on above: Performed By: #### P REGU, ERUR, UMICRO #### [facility] [address] [address] [address] Isaías Plunkett pH (U) 6.0 [pH] Normal 5-[address] [facility] Comment on above: Performed By: #### P REGU, ERUR, UMICRO #### [facility] [address] [address] [address] Isaías Plunkett SPEC GRAVITY 1.025 Normal 1.005-<=1.025 [facility] Comment on above: Performed By: #### P REGU ERUR, UMICRO #### [facility] [address] [address] [address] Isaías Plunkett UA PROTEIN Negative Normal NEGATIVE/ TRACE [facility] Comment on above: Performed By: #### P REGU ERUR, UMICRO #### [facility] [address] [address] [address] Isaías Plunkett UR MICRO IND INDICATED Normal [facility] Comment on above: Performed By: #### P REGUNATANAELR UMICRO #### [facility] [address] [place] [address] Dr. Isaías Plunkett Urobilinogen Qn (U) 2.0 {Katherine'U}/dL Abnormal 0.2 - 1. 0 [facility] Comment on above: Performed By: #### P REGU ERUR, UMICRO #### [facility] [address] [place] [address] Dr. Isaías Plunkett LIPASEon 08-19-2022 Lipase [Catalytic activity/Vol] 49.0 U/L Critically low 73.0-393.0 [facility] Comment on above: Performed By: #### P HVEN #### [facility] [address] [place] [address] Dr. Isaías Plunkett PH VENOUS BLOODon 08-19-2022 PCO2 VENOUS 41.0 mmHg Normal 40.0-52.0 [facility] Comment on above: Performed By: #### P HVEN #### [facility] [address] [place] [address] Dr. Isaías Plunkett pH VENOUS 7.415 Normal 7.330-7.430 [facility] Comment on above: Performed By: #### P HVEN #### [facility] [address] [address] [address] Isaías Plunkett POINT OF CARE GLUCOSEon Glucose [Mass/Vol] 187 mg/dL Critically high 74-106 [facility] Comment on above: Performed By: #### P OCGLUC #### [facility] [address] [place] [address] Dr. Isaías Plunkett URon 08-19-2022 , QUAL Negative Normal NEGATIVE [facility] Comment on above: Performed By: #### P REGU, ERUR, UMICRO #### [facility] [address] [place] [address] Dr. Isaías Plunkett PROF 14(COMP METB)on 022 Albumin [Mass/Vol] 3.5 g/dL Normal 3.4-5.0 [facility] Comment on above: Performed By: #### P HVEN #### [facility] [address] [place] [address] Dr. Isaías Plunkett Albumin/Globulin [Mass ratio] 0.9 {ratio} Normal [facility] Comment on above: Performed By: #### P HVEN #### [facility] [address] [place] [address] Dr. Isaías Plunkett ALP [Catalytic activity/Vol] 54 U/L Normal 46-116 [facility] Comment on above: Performed By: #### P HVEN #### [facility] [address] [place] [address] Dr. Isaías Plunkett ALT [Catalytic activity/Vol] 82 U/L Critically high 14-59 [facility] Comment on above: Performed By: #### P HVEN #### [facility] [address] [place] [address] Dr. Isaías Plunkett Anion gap [Moles/Vol] 13.1 mmol/L Normal [facility] Comment on above: Performed By: #### P HVEN #### [facility] [address] [place] [address] Dr. Isaías Plunkett AST [Catalytic activity/Vol] 41 U/L Critically high 15-37 [facility] Comment on above: Performed By: #### P HVEN #### [facility] [address] [place] [address] Dr. Isaías Plunkett Bilirubin [Mass/Vol] 0.6 mg/dL Normal 0.2-1.0 [facility] Comment on above: Performed By: #### P HVEN #### [facility] [address] [address] [address] Isaías Plunkett Calcium [Mass/Vol] 8.9 mg/dL Normal 8.5-10.1 [facility] Comment on above: Performed By: #### P HVEN #### [facility] [address] [address] [address] Isaías Plunkett Chloride [Moles/Vol] 99 mmol/L Normal 98-107 [facility] Comment on above: Performed By: #### P HVEN #### [facility] [address] [address] [address] Isaías Plunkett CO2 [Moles/Vol] 25.5 mmol/L Normal 21.0-32.0 [facility] Comment on above: Performed By: #### P HVEN #### [facility] [address] [address] [address] Isaías Plunkett Creatinine [Mass/Vol] 0.66 mg/dL Normal 0.55-1.02 [facility] Comment on above: Performed By: #### P HVEN #### [facility] [address] [place] [address] Dr. Isaías Plunkett EGFR-AF MONEGASQUE >60 Normal >=60 [facility] Comment on above: Performed By: #### P HVEN #### [facility] [address] [address] [address] Isaías Plunkett EGFR-NON AF MONEGASQUE >60 Normal >=60 [facility] Comment on above: Performed By: #### P HVEN #### [facility] [address] [address] [address] Isaías Plunkett Globulin (S) [Mass/Vol] 3.9 g/dL Normal [facility] Comment on above: Performed By: #### P HVEN #### [facility] [address] [address] [address] Isaías Plunkett Glucose [Mass/Vol] 212 mg/dL Critically high 74-106 [facility] Comment on above: Performed By: #### P HVEN #### [facility] [address] [address] [address] Isaías Plunkett Potassium [Moles/Vol] 3.6 mmol/L Normal 3.5-5.1 [facility] Comment on above: Performed By: #### P HVEN #### [facility] [address] [address] [address] Isaías Plunkett Protein [Mass/Vol] 7.4 g/dL Normal 6.4-8.2 [facility] Comment on above: Performed By: #### P HVEN #### [facility] [address] [address] [address] Isaías Plunkett Sodium [Moles/Vol] 134 mmol/L Critically low 136-145 [facility] Comment on above: Performed By: #### P HVEN #### [facility] [address] [address] [address] Isaías Plunkett Urea nitrogen [Mass/Vol] 11.0 mg/dL Normal 7.0-18.0 [facility] Comment on above: Performed By: #### P HVEN #### [facility] [address] [address] [address] Isaías Plunkett Urea nitrogen/Creatinine [Mass ratio] 16.7 mg/mg Normal [facility] Comment on above: Performed By: #### P HVEN #### [facility] [address] [address] [address] Isaías Plunkett TROPONIN, HIGH SENSITIVITYon 08-19-2022 HSTROP 4.5 pg/mL Normal 4.0-51.3 [facility] Comment on above: Result Comment: CUT- OFF POINTS HAVE BEEN ESTABLISHED BASED ON THE FOURTH UNIVERSAL DEFINITIONS OF MYOCARDIAL INFARCTION. THE UPPER REFERENCE LIMIT (URL) OF TROPONIN, DEFINED THE 99TH PERCENTILE OF cTnI DISTRIBUTION IN A REFERENCE POPULATION, HAS BEEN CONFIRMED THE DECISION THRESHOLD FOR VA DIAGNOSIS. Performed By: #### P HVEN #### [facility] [address] [address] [address] Isaías Plunkett URINE MICROSCOPIC ONLYon BACTERIA TRACE Abnormal NONE SEEN [facility] Comment on above: Performed By: #### P REGU, ERUR, UMICRO #### [facility] [address] [address] [address] Isaías Plunkett Bacteria identified Cx Nom (U) INDICATED Normal [facility] Comment on above: Performed By: #### P REGU, ERUR, UMICRO #### [facility] [address] [address] [address] Isaías Plunkett CAST NONE SEEN Normal NONE SEEN [facility] Comment on above: Performed By: #### P REGU, ERUR, UMICRO #### [facility] [address] [address] [address] Isaías Plunkett Crystals LM Nom (Urine sed) NONE SEEN Normal NONE SEEN [facility] Comment on above: Performed By: #### P REGU, ERUR, UMICRO #### [facility] [address] [address] [address] Isaías Plunkett Epithelial cells LM Ql (Urine sed) FEW Abnormal NONE SEEN /RARE [facility] Comment on above: Performed By: #### P REGU, ERUR, UMICRO #### [facility] [address] [address] [address] Isaías Plunkett MUCOUS NONE SEEN Normal NONE SEEN [facility] Comment on above: Performed By: #### P REGU, ERUR, UMICRO #### [facility] [address] [address] [address] Isaías Plunkett RBC 0-2 Normal 0-[address] [facility] Comment on above: Performed By: #### P REGU, ERUR, UMICRO #### [facility] [address] [address] [address] Isaías Plunkett WBC 5-10 Abnormal NONE SEEN [facility] Comment on above: Performed By: #### P REGU, ERUR, UMICRO #### [facility] [address] [address] [address] Isaías Plunkett Vital Signs Date Time Vital Sign Value Performing Clinician Jennii lit 09-05-2024 14:40-0500 Body height 160 cm Vianey Tilley MD Work Phone: [facility] 09-05-2024 14:40-0500 Body mass index (BMI) [Ratio] 34.19 kg/m2 Vianey Tilley MD Work Phone: [facility] 09-05-2024 14:40-0500 Body weight 87.54 kg Vianey Tilley MD Work Phone: [facility] 09-05-2024 14:40-0500 Diastolic blood pressure 64 mm[Hg] Vianey Tilley MD Work Phone: [facility] 09-05-2024 14:40-0500 Systolic blood pressure 102 mm[Hg] Vianey Tilley MD Work Phone: [facility] Encounters Encounter Date Encounter Type Care Provider Facility Start: 09-05-2024 End: 09-05-2024 Office outpatient new 45 minutes Vianey Tilley MD Work Phone: [facility] Comment on above: 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 2024 Unknown [id number] 2022 Private Health Insurance [employer] [id number] 1987 Unknown [id number] 593 1987 Unknown [id number]. 593 1987 Unknown [id number] [id number]. 593 1987 Unknown [id number] [id number]. 593 1987 Unknown [id number] [id number]. 593 1987 Unknown [id number] [id number]. 593 1987 Unknown [id number] [id number]. 593 1987 Unknown [id number] [id number]. 1259 1959 Unknown [id number] 1959 Unknown [id number] 1959 Unknown [id number] Social History Date Type Detail Facility Start: 11-22-2023 End: 09-05-2024 Tobacco smoking status [facility] Ex-smoker [facility] History of [...] and Sinusitis Pt states she has had shaorn ear crusting and draining for 3 weeks. [...] 08/31/2024 Bilateral otitis media 08/31/2024 Diabetes mellitus ([facility]) 08/31/2024 Gastroesophageal reflux disease 08/31/2024 Obesity 08/31/2024 Resolved Ambulatory Problems Diagnosis Date Noted No Resolved Ambulatory Problems Past Medical History: Diagnosis Date DM (diabetes mellitus) ([facility]) Obesity (BMI 30-39.9) Well woman exam Past [...] and content) DATE CREATED AUTHOR 01/05/2023 [facility] DATE CREATED AUTHOR AUTHOR'S ORGANIZ ATION 09/08/[address] [facility] Care Teams (unrecognized sec tion and content) Ob Tech Relationship Specialty Start Date End Date Poly Archibald MD [address] [place] [address] Referring Physician Family Medicine 08/28/24 Ob Tech Relationship Specialty Start Date End Date Poly Archibald MD [address] [place] [address] Referring Physician Family Medicine 08/28/24 Reason for [...] BE BASED ON THE PRIMARY CLINICAL RECORDS. [facility]. provides no warranty or guarantee of the accuracy or completeness of information in this document.
[2024-11-17 12:37] LABS: Estimated Average Glucose 232 mg/dL; Glycohemoglobin A1C 9.7 % (4.5-6.2)
== END 2024-11-17 10:56 | disposition home or self-care (01) ==
LOC: LAB 11:03
PROVIDERS: PCP Nurse Practitioner Family; Visit Provider Nurse Practitioner Family
DX: E11.9 Type 2 diabetes mellitus without complications (principal)
CPT/HCPCS: 36415; 83036

== ENCOUNTER 2024-12-11 08:39 | Emergency (ER) | payer OTHER, SELFPAY ==
[2024-12-11 08:43] VITALS: BP 129/78; PULSE 92; TEMP 36.8; O2SAT 98; BMI 32.6
--- NOTE | 2024-12-11 08:51 | PC.NURSE ---
Patient relays chest pain is with cough and congestion.
--- NOTE | 2024-12-11 09:01 | ECG_ITS ---
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
--- NOTE | 2024-12-11 09:02 | ED_ITS ---
HPI HPI - General Adult General Chief complaint: Chest Pain Stated complaint: chest pain/tightness Time Seen by Provider: 12/11/24 08:53 Source: patient Mode of arrival: walk-in History of Present Illness HPI narrative: Patient is a 39-year-old female who is presenting to the ER with chief complaint of right sided chest pain discomfort that started this morning on her way to work. Patient has a small daughter, who runs into her arms multiple times throughout the day hitting her chest wall. This occurred multiple times yesterday as well, patient does not recall any type of injury. 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 Patient does not do a lot of heavy lifting twisting or turning at work. Patient is a diabetic, she has no cardiac history. She has no rash. Patient states she does have pain in the right anterior chest wall when she is taking deep breath, or if she is moving her right arm up, down across her chest or to her back with range of motion of the right extremity will cause the right chest pain. No abdominal pain nausea or vomiting. No heavy pressure, diaphoresis, shortness of breath. No nausea vomiting. No other acute complaints. All systems are negative except as noted/marked. All systems reviewed and otherwise negative. Nurses note and vital signs reviewed and patient is not hypoxic. General: The patient appears well and in no apparent distress. Patient is resting comfortably on cart. Patient is not toxic, lethargic, or listless Skin: Warm, dry, no pallor noted. There is no rash noted. No petechiae, purpura. Head: Normocephalic, atraumatic Eye: Normal conjunctiva, no drainage, EOMI. PERRL Ears, Nose, Mouth, and Throat: oral mucosa is moist. Nares patent. Mouth without vesicles. Cardiovascular: Regular Rate and Rhythm, no murmur, gallop, rub. Patient does have reproducible tenderness to palpation moderate the right anterior chest wall, no rash. Respiratory: Patient is in no distress, no accessory muscle use, lungs are clear to auscultation, no wheezing, rales or rhonchi Back: non-tender, no CVA tenderness bilaterally to percussion. No CT LS midline pain GI: no tenderness to palpation, no masses appreciated. No rebound, guarding, or rigidity noted. No distention Musculoskeletal: Patient has full range of motion of all of the extremities, no motor, sensory, or focal neurological deficits Neurological: A&O x4, normal speech Psychiatric: Cooperative Related Data Home Medications ?Medication ?Instructions ?Recorded ?Confirmed metformin 500 mg tablet 500 mg PO BID 10/30/23 12/11/24 no medications 04/05/24 empagliflozin 10 mg tablet 10 mg PO DAILY 12/11/24 12/11/24 (Jardiance) Previous Rx's ?Medication ?Instructions ?Recorded albuterol sulfate 90 mcg/actuation 2 inh inhalation Q4H PRN shortness 10/30/23 aerosol inhaler of breath or wheezing #8.5 grams benzonatate 100 mg capsule 100 mg PO TID PRN cough #20 caps 10/30/23 loratadine 5 mg-pseudoephedrine ER 1 tab PO Q12H PRN nasal congestion 10/30/23 120 mg tablet,extended #20 tabs release,12hr (Claritin-D 12 Hour) benzonatate 100 mg capsule 100 mg PO TID PRN cough #20 caps 10/23/24 doxycycline hyclate 100 mg capsule 100 mg PO BID 10 days #20 caps 10/23/24 ibuprofen 800 mg tablet 800 mg PO Q8H PRN pain #30 tabs 12/11/24 Allergies Allergy/AdvReac Type Severity Reaction Status Date / Time erythromycin base AdvReac Intermediate Rash Verified 12/11/24 08:43 Opioid HPI Opioid Management Most Recent Opioid Data: No Data to Display [facility] Social History Smoking status: Never smoker Little interest or pleasure in doing things: not at all Feeling down, depressed, or hopeless: not at all Exam Constitutional Vital Signs, click to edit/add: Last Vital Signs Temp 98.2 F 12/11/24 08:43 Pulse 92 H 12/11/24 08:43 Resp 20 12/11/24 08:43 BP 129/78 12/11/24 08:43 Pulse Ox 98 12/11/24 08:43 O2 Del Method Room Air 12/11/24 08:43 Course Vital Signs Vital signs: Vital Signs Temperature 98.2 F 12/11/24 08:43 Pulse Rate 92 H 12/11/24 08:43 Respiratory Rate 20 12/11/24 08:43 Blood Pressure 129/78 12/11/24 08:43 Pulse Oximetry 98 12/11/24 08:43 Oxygen Delivery Method Room Air 12/11/24 08:43 Temperature 98.2 F 12/11/24 08:43 Pulse Rate 92 H 12/11/24 08:43 Respiratory Rate 20 12/11/24 08:43 Blood Pressure 129/78 12/11/24 08:43 Pulse Oximetry 98 12/11/24 08:43 Oxygen Delivery Method Room Air 12/11/24 08:43 Medical Decision Making MDM Narrative Medical decision making narrative: EKG shows no acute findings, chest x-ray negative. Education on treating symptomatic pain was discussed at bedside and on discharge paper. Patient has a Heart score of 2 for risk factors. Patient was given a work note. Patient will follow-up with PCP for additional treatment and care as needed. Patient understands that he is having heavy pressure, diaphoresis, shortness of breath, nausea vomiting, or any other acute concerns return back to the ER. This was discussed at bedside. Work note given. No question at discharge. Lungs are very clear. Patient has reproducible right-sided chest wall pain and the pain is reproduced with range of motion to her right upper extremity. Patient was given a Motrin in the ER. Discharge Plan Discharge Stand Alone Forms: Work/School Release Chief Complaint: Chest Pain Clinical Impression: Right-sided chest pain Patient Disposition: Home, Self-Care Time of Disposition Decision: 09:32 Condition: Fair Prescriptions / Home Meds: New ibuprofen 800 mg tablet 800 mg PO Q8H PRN (Reason: pain) Qty: 30 0RF Rx Instructions: with food and drink No Action Jardiance 10 mg tablet 10 mg PO DAILY metformin 500 mg tablet 500 mg PO BID benzonatate 100 mg capsule 100 mg PO TID PRN (Reason: cough) Qty: 20 0RF Claritin-D 12 Hour 5-120 mg tablet extended release 12 hr 1 tab PO Q12H PRN (Reason: nasal congestion) Qty: 20 0RF albuterol sulfate 90 mcg/actuation HFA aerosol inhaler 2 inh inhalation Q4H PRN (Reason: shortness of breath or wheezing) Qty: 8.5 0RF no medications doxycycline hyclate 100 mg capsule 100 mg PO BID 10 Days Qty: 20 0RF benzonatate 100 mg capsule 100 mg PO TID PRN (Reason: cough) Qty: 20 0RF Print Language: [place] Instructions: Chest Pain (ED), Chest Wall Pain (ED) Additional Instructions: Use ice 20 minutes on, 20 minutes off, do not use heat Follow-up with PCP for further outpatient testing as indicated. EKG and chest x-ray showed no acute findings Alternate Tylenol and either Motrin, Advil, or ibuprofen every 4 hours to help with pain. Maximum dose of Tylenol is 3000 mg a day. Maximum dose of either Mo femi, Advil, or ibuprofen is 2400 mg a day. Referrals: JOHNSON KRAMER [Primary Care Provider] - 1 week Discharge Date/Time: 12/11/24 09:40
[2024-12-11] MEDS: IBUPROFEN 400 MG TABLET 800 MG PO (09:37)
== END 2024-12-11 09:40 | disposition home or self-care (01) ==
PROVIDERS: Emergency Provider Emergency Medicine; PCP Nurse Practitioner Family
DX: R07.9 Chest pain, unspecified (principal); E11.9 Type 2 diabetes mellitus without complications; Z79.84 Long term (current) use of oral hypoglycemic drugs
CPT/HCPCS: 71046; 93005; 99284

== ENCOUNTER 2024-12-18 21:57 | Emergency (ER) | payer OTHER, SELFPAY ==
[2024-12-18 22:01] VITALS: BP 125/89; PULSE 93; TEMP 36.6; O2SAT 98; BMI 33.1
--- OUTSIDE RECORDS SUMMARY | 2024-12-18 22:05 | XMS_ITS | CCD ---
Author Organization [facility] Care Team Providers Care Silk Brusher Name Role Phone REQUEST, DR NONE LISTED [...] POLY Admitting Unavailable NIA, POLY Attending Unavailable NAI, POLY Primary Care Unavailable NIA, POLY Consulting [...] (4 sources) Erythromycin Drug Allergy 05-31-2013 [facility] Medications Current Medications Medication Drug Class(es) Dates Sig (Normalized) Sig (Original) [id number] 200 actuat albuterol 0.09 mg/actuat metered dose [...] days 10 mL 1 09/05/2024 Active levonorgestrel 0.537842 mg/hr intrauterine system (3 sources) Progestin, Progestin-containin [...] Onset: 08-21-2022 Episodic Other 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 . Normal [facility] Comment on above: Result Comment: Perf ormed at: WB Performed By: #### [id number] #### [facility] [address] [place] [address] Dr. Isaías Plunkett Age Gdln ACOG Testing 30-65 Normal [facility] Comment on above: Performed By: #### [id number] #### [facility] [address] [address] [address] Isaías Plunkett DIAGNOSIS: Comment Normal [facility] Comment on above: Result Comment: NEGA TIVE FOR INTRAEPITHELIAL LESION OR MALIGNANCY. Performed at: WB Performed By: #### [id number] #### [facility] [address] [place] [address] Dr. Isaías Plunkett HPV Aptima Negative Normal Negative [facility] Comment on above: Result Comment: This nucleic acid amplification test detects fourteen high-risk HPV types (16,18,31,33,35,39,45,51,52,56,58,59,66,68) without differentiation. Performed at: =G Performed By: #### [id number] #### [facility] [address] [address] [address] Isaías Plunkett HPV Genotype Reflex Comment Normal [facility] Comment on above: Result Comment: Crit eria not met, HPV Genotype not performed. Performed at: WB Performed By: #### [id number] #### [facility] [address] [place] [address] Dr. Isaías Plunkett Methodology: Comment Normal [facility] Comment on above: Result Comment: This liquid based ThinPrep(R) pap test was screened with the use of an image guided system. Performed at: WB Performed By: #### [id number] #### [facility] [address] [place] [address] Dr. Isaías Plunkett Note: Comment Normal [facility] Comment on above: Result Comment: The Pap smear is a screening test designed to aid in the detection of premalignant and malignant conditions of the uterine cervix. It is not a diagnostic procedure and should not be used as the sole means of detecting cervical cancer. Both false-positive and false-negative reports do occur. . Performed at: WB Performed By: #### [id number] #### [facility] [address] [place] [address] Dr. Isaías Plunkett Performed by: Comment Normal [facility] Comment on above: Result Comment: Dillon Gonsalez, Dredge Pump Operator (ASCP) Performed at: WB Performed By: #### [id number] #### [facility] [address] [place] [address] Dr. Isaías Plunkett Specimen adequacy: Comment Normal [facility] Comment on above: Result Comment: Sati sfactory for evaluation. Endocervical and/or squamous metaplastic cells (endocervical component) are present. Performed at: WB Performed By: #### [id number] #### [facility] [address] [place] [address] Dr. Isaías Plunkett GLYCOHEMOGLOBIN A1Con 2022 ADA RECOMMENDATION SEE BELOW Normal [facility] Comment on above: Result Comment: ADA RECOMMENDED LIMIT 4.0 - 6.0 ADA THERAPEUTIC TARGET < 7.0 ACTION SUGGESTED > 7.0 Performed By: #### P HVEN #### [facility] [address] [place] [address] Dr. Isaías Plunkett Glucose [Mass/Vol] 197 mg/dL Normal [facility] Comment on above: Performed By: #### P HVEN #### [facility] [address] [place] [address] Dr. Isaías Plunkett HbA1c (Bld) [Mass fraction] 8.5 % Critically high 4.5-6.2 [facility] Comment on above: Performed By: #### P HVEN #### [facility] [address] [place] [address] Dr. Isaías Plunkett Covid-19 PCR ([facility])on SARS-CoV-2 (COVID-19) RNA CHIOMA+probe Ql (Unsp spec) Not detected Normal NOT DETECTED [facility] Comment on above: Result Comment: When diagnostic [...] for this test is supported by the [place] of Health and Human Service's declaration that [...] used). Performed By: #### P HVEN #### [facility] [address] [place] [address] Dr. Isaías Plunkett INFLUENZA A AND B AGon 10-19 [facility] SEE BELOW Normal [facility] Comment on above: Result Comment: Nega tive for Flu A protein angiten. Infection due to Flu A cannot be ruled out. Flu A angiten in the sample may be below the detection limit of the test. Performed By: #### I NFLUAB #### [facility] [address] [place] [address] Dr. Isaías Plunkett [facility] SEE BEL[facility] Normal [facility] Comment on above: Result Comment: Nega tive for Flu B protein antigen. Infection due to Flu B cannot be ruled out. Flu B antigen in the sample may be below the detection limit of the test. Performed By: #### I NFLUAB #### [facility] [address] [place] [address] Dr. Isaías Plunkett INFLUENZA A AG Negative Normal NEGATIVE SEE COMMENT [facility] Comment on above: Performed By: #### I NFLUAB #### [facility] [address] [place] [address] Dr. Isaías Plunkett INFLUENZA B AG Negative Normal NEGATIVE SEE COMMENT [facility] Comment on above: Performed By: #### I NFLUAB #### [facility] [address] [place] [address] Dr. Isaías Plunkett INSULINon 09-10-2022 Insulin 36.6 uIU/mL Critically high 2.6-24.9 [facility] Comment on above: Performed By: #### [id number] #### [facility] [address] [place] [address] Dr. Isaías Plunkett CBC AUTO DIFFon 09-09-2022 BASO # 0.0 103/ul Normal 0.0-0.1 [facility] Comment on above: Performed By: #### C BC #### [facility] [address] [place] [address] Dr. Isaías Plunkett Basophils/100 WBC (Bld) 0.4 % Normal 0.2-2.0 [facility] Comment on above: Performed By: #### C BC #### [facility] [address] [place] [address] Dr. Isaías Plunkett EO # 0.2 103/ul Normal 0.0-0.7 [facility] Comment on above: Performed By: #### C BC #### [facility] [address] [place] [address] Dr. Isaías Plunkett Eosinophils/100 WBC (Bld) 2.0 % Normal 0.9-7.0 [facility] Comment on above: Performed By: #### C BC #### [facility] [address] [place] [address] Dr. Isaías Plunkett Erythrocyte distribution width (RBC) [Ratio] 13.2 % Normal 11.0-15.0 [facility] Comment on above: Performed By: #### C BC #### [facility] [address] [place] [address] Dr. Isaías Plunkett Hematocrit (Bld) [Volume fraction] 39.0 % Normal 36.0-48.0 [facility] Comment on above: Performed By: #### C BC #### [facility] [address] [place] [address] Dr. Isaías Plunkett Hemoglobin (Bld) [Mass/Vol] 12.9 g/dL Normal 12.0-16.0 [facility] Comment on above: Performed By: #### C BC #### [facility] [address] [place] [address] Dr. Isaías Plunkett IG # 0.02 10e3/ul Normal 0.00-0.03 [facility] Comment on above: Performed By: #### C BC #### [facility] [address] [place] [address] Dr. Isaías Plunkett IG % 0.2 % Normal 0.0-0.5 [facility] Comment on above: Performed By: #### C BC #### [facility] [address] [place] [address] Dr. Isaías Plunkett LYMPH # 3.2 103/ul Normal 1.2-3.8 [facility] Comment on above: Performed By: #### C BC #### [facility] [address] [place] [address] Dr. Isaías Plunkett Lymphocytes/100 WBC (Bld) 40.0 % Normal 20.5-60.0 [facility] Comment on above: Performed By: #### C BC #### [facility] [address] [place] [address] Dr. Isaías Plunkett MANUAL DIFF REQ NO Normal [facility] Comment on above: Performed By: #### C BC #### [facility] [address] [place] [address] Dr. Isaías Plunkett MCH (RBC) [Entitic mass] 27.1 pg Normal 26.7-34.0 [facility] Comment on above: Performed By: #### C BC #### [facility] [address] [place] [address] Dr. Isaías Plunkett MCHC (RBC) [Mass/Vol] 33.1 g/dL Normal 29.9-35.2 [facility] Comment on above: Performed By: #### C BC #### [facility] [address] [place] [address] Dr. Isaías Plunkett MCV (RBC) [Entitic vol] 81.9 fL Normal 81.0-99.0 [facility] Comment on above: Performed By: #### C BC #### [facility] [address] [place] [address] Dr. Isaías Plunkett MONO # 0.5 103/ul Normal 0.3-0.8 [facility] Comment on above: Performed By: #### C BC #### [facility] [address] [place] [address] Dr. Isaías Plunkett Monocytes/100 WBC (Bld) 6.2 % Normal 1.7-12.0 [facility] Comment on above: Performed By: #### C BC #### [facility] [address] [place] [address] Dr. Isaías Plunkett NEUT # 4.1 103/ul Normal 1.4-6.5 [facility] Comment on above: Performed By: #### C BC #### [facility] [address] [place] [address] Dr. Isaías Plunkett Neutrophils/100 WBC (Bld) 51.2 % Normal 43.0-75.0 [facility] Comment on above: Performed By: #### C BC #### [facility] [address] [place] [address] Dr. Isaías Plunkett Platelet mean volume (Bld) [Entitic vol] 9.5 fL Normal 9.5-13.5 [facility] Comment on above: Performed By: #### C BC #### [facility] [address] [place] [address] Dr. Isaías Plunkett PLT 275 103/ul Normal 150-450 [facility] Comment on above: Performed By: #### C BC #### [facility] [address] [place] [address] Dr. Isaías Plunkett RBC 4.76 106/ul Normal 4.20-5.40 [facility] Comment on above: Performed By: #### C BC #### [facility] [address] [place] [address] Dr. Isaías Plunkett WBC 8.1 103/ul Normal 4.0-11.0 [facility] Comment on above: Performed By: #### C BC #### [facility] [address] [address] [address] Isaías Plunkett FREE THYROXINE INDEX T7on FTI 2.05 Normal 1.30-4.50 [facility] Comment on above: Performed By: #### P HVEN #### [facility] [address] [address] [address] Isaías Plunkett T3U 31.0 % Normal 30.0-39.0 [facility] Comment on above: Performed By: #### P HVEN #### [facility] [address] [address] [address] Isaías Plunkett T4 [Mass/Vol] 6.60 ug/dL Normal 4.80-13.90 [facility] Comment on above: Performed By: #### P HVEN #### [facility] [address] [place] [address] Dr. Isaías Plunkett GLYCOHEMOGLOBIN A1Con 2021 ADA RECOMMENDATION SEE BELOW Normal [facility] Comment on above: Result Comment: ADA RECOMMENDED LIMIT 4.0 - 6.0 ADA THERAPEUTIC TARGET < 7.0 ACTION SUGGESTED > 7.0 Performed By: #### A 1C #### [facility] [address] [place] [address] Dr. Isaías Plunkett Glucose [Mass/Vol] 226 mg/dL Normal [facility] Comment on above: Performed By: #### A 1C #### [facility] [address] [address] [address] Isaías Plunkett HbA1c (Bld) [Mass fraction] 9.5 % Critically high 4.5-6.2 [facility] Comment on above: Performed By: #### A 1C #### [facility] [address] [place] [address] Dr. Isaías Plunkett IRONon 09-09-2022 Iron [Mass/Vol] 42.0 ug/dL Critically low 50.0-170.0 [facility] Comment on above: Performed By: #### P HVEN #### [facility] [address] [place] [address] Dr. Isaías Plunkett LIPID PROFILEon 09-09-2022 CHOL-HDL RATIO NORM SEE BELOW Normal [facility] Comment on above: Result Comment: 3.3 - 4.4 LOW RISK 4.4 - 7.1 AVERAGE RISK 7.1 - 11.0 MODERATE RISK >11.0 HIGH RISK Performed By: #### P HVEN #### [facility] [address] [address] [address] Isaías Plunkett Cholesterol [Mass/Vol] 199 mg/dL Normal <=200 [facility] Comment on above: Performed By: #### P HVEN #### [facility] [address] [address] [address] Isaías Plunkett Cholesterol in HDL [Mass/Vol] 38 mg/dL Critically low 40-60 [facility] Comment on above: Performed By: #### P HVEN #### [facility] [address] [address] [address] Isaías Plunkett Cholesterol in LDL [Mass/Vol] 124.8 mg/dL Normal [facility] Comment on above: Performed By: #### P HVEN #### [facility] [address] [address] [address] Isaías Plunkett Cholesterol.total/Cho lesterol in HDL [Mass ratio] 5.2 {ratio} Normal [facility] Comment on above: Performed By: #### P HVEN #### [facility] [address] [address] [address] Isaías Plunkett HDL NORMAL > or = 60 mg/dl - LO W CARDIOVASCULAR RISK <40 mg/dl - HIGH CARDIOVASCULAR RISK Normal [facility] Comment on above: Performed By: #### P HVEN #### [facility] [address] [address] [address] Isaías Plunkett LDL CALC NORMAL SEE BELOW Normal [facility] Comment on above: Result Comment: <100 mg/dl OPTIMAL 100 - 129 mg/dl NEAR OR ABOVE OPTIMAL 130 - 159 mg/dl BORDERLINE HIGH 160 - 189 mg/dl HIGH >190 mg/dl VERY HIGH Performed By: #### P HVEN #### [facility] [address] [address] [address] Isaías Plunkett Triglyceride [Mass/Vol] 181 mg/dL Critically high <=150 [facility] Comment on above: Performed By: #### P HVEN #### [facility] [address] [place] [address] Dr. Isaías Plunkett VLDL CALC 36.2 mg/dL Normal [facility] Comment on above: Performed By: #### P HVEN #### [facility] [address] [place] [address] Dr. Isaías Plunkett PROF 14(COMP METB)on 022 Albumin [Mass/Vol] 3.6 g/dL Normal 3.4-5.0 [facility] Comment on above: Performed By: #### P HVEN #### [facility] [address] [place] [address] Dr. Isaías Plunkett Albumin/Globulin [Mass ratio] 0.9 {ratio} Normal [facility] Comment on above: Performed By: #### P HVEN #### [facility] [address] [place] [address] Dr. Isaías Plunkett ALP [Catalytic activity/Vol] 54 U/L Normal 46-116 [facility] Comment on above: Performed By: #### P HVEN #### [facility] [address] [place] [address] Dr. Isaías Plunkett ALT [Catalytic activity/Vol] 64 U/L Critically high 14-59 [facility] Comment on above: Performed By: #### P HVEN #### [facility] [address] [address] [address] Isaías Plunkett Anion gap [Moles/Vol] 13.0 mmol/L Normal [facility] Comment on above: Performed By: #### P HVEN #### [facility] [address] [place] [address] Dr. Isaías Plunkett AST [Catalytic activity/Vol] 17 U/L Normal 15-37 [facility] Comment on above: Performed By: #### P HVEN #### [facility] [address] [place] [address] Dr. Isaías Plunkett Bilirubin [Mass/Vol] 0.2 mg/dL Normal 0.2-1.0 [facility] Comment on above: Performed By: #### P HVEN #### [facility] [address] [place] [address] Dr. Isaías Plunkett Calcium [Mass/Vol] 8.8 mg/dL Normal 8.5-10.1 [facility] Comment on above: Performed By: #### P HVEN #### [facility] [address] [address] [address] Isaías Plunkett Chloride [Moles/Vol] 100 mmol/L Normal 98-107 [facility] Comment on above: Performed By: #### P HVEN #### [facility] [address] [place] [address] Dr. Isaías Plunkett CO2 [Moles/Vol] 26.2 mmol/L Normal 21.0-32.0 [facility] Comment on above: Performed By: #### P HVEN #### [facility] [address] [place] [address] Dr. Isaías Plunkett Creatinine [Mass/Vol] 0.59 mg/dL Normal 0.55-1.02 [facility] Comment on above: Performed By: #### P HVEN #### [facility] [address] [place] [address] Dr. Isaías Plunkett EGFR-AF [place] >60 Normal >=60 [facility] Comment on above: Performed By: #### P HVEN #### [facility] [address] [place] [address] Dr. Isaías Plunkett EGFR-NON AF [place] >60 Normal >=60 [facility] Comment on above: Performed By: #### P HVEN #### [facility] [address] [place] [address] Dr. Isaías Plunkett Globulin (S) [Mass/Vol] 4.0 g/dL Normal [facility] Comment on above: Performed By: #### P HVEN #### [facility] [address] [place] [address] Dr. Isaías Plunkett Glucose [Mass/Vol] 188 mg/dL Critically high 74-106 [place] Comment on above: Performed By: #### P HVEN #### [facility] [address] [address] [address] Isaías Plunkett Potassium [Moles/Vol] 4.2 mmol/L Normal 3.5-5.1 [facility] Comment on above: Performed By: #### P HVEN #### [facility] [address] [address] [address] Isaías Plunkett Protein [Mass/Vol] 7.6 g/dL Normal 6.4-8.2 [facility] Comment on above: Performed By: #### P HVEN #### [facility] [address] [address] [address] Isaías Plunkett Sodium [Moles/Vol] 135 mmol/L Critically low 136-145 [facility] Comment on above: Performed By: #### P HVEN #### [facility] [address] [place] [address] Dr. Isaías Plunkett Urea nitrogen [Mass/Vol] 9.0 mg/dL Normal 7.0-18.0 [facility] Comment on above: Performed By: #### P HVEN #### [facility] [address] [address] [address] Isaías Plunkett Urea nitrogen/Creatinine [Mass ratio] 15.3 mg/mg Normal [facility] Comment on above: Performed By: #### P HVEN #### [facility] [address] [place] [address] Dr. Isaías Plunkett TSHon 09-09-2022 TSH 2.268 uIU/mL Normal 0.358-3.740 [facility] Comment on above: Performed By: #### P HVEN #### [facility] [address] [place] [address] Dr. Isaías Plunkett CBC AUTO DIFFon 08-19-2022 BASO # 0.0 103/ul Normal 0.0-0.1 [facility] Comment on above: Performed By: #### C BC #### [facility] [address] [place] [address] Dr. Isaías Plunkett Basophils/100 WBC (Bld) 0.3 % Normal 0.2-2.0 [facility] Comment on above: Performed By: #### C BC #### [facility] [address] [place] [address] Dr. Isaías Plunkett EO # 0.0 103/ul Normal 0.0-0.7 [facility] Comment on above: Performed By: #### C BC #### [facility] [address] [place] [address] Dr. Isaías Plunkett Eosinophils/100 WBC (Bld) 0.4 % Critically low 0.9-7.0 [facility] Comment on above: Performed By: #### C BC #### [facility] [address] [place] [address] Dr. Isaías Plunkett Erythrocyte distribution width (RBC) [Ratio] 13.3 % Normal 11.0-15.0 [facility] Comment on above: Performed By: #### C BC #### [facility] [address] [place] [address] Dr. Isaías Plunkett Hematocrit (Bld) [Volume fraction] 41.1 % Normal 36.0-48.0 [facility] Comment on above: Performed By: #### C BC #### [facility] [address] [place] [address] Dr. Isaías Plunkett Hemoglobin (Bld) [Mass/Vol] 13.6 g/dL Normal 12.0-16.0 [facility] Comment on above: Performed By: #### C BC #### [facility] [address] [place] [address] Dr. Isaías Plunkett IG # 0.02 10e3/ul Normal 0.00-0.03 [facility] Comment on above: Performed By: #### C BC #### [facility] [address] [place] [address] Dr. Isaías Plunkett IG % 0.3 % Normal 0.0-0.5 [facility] Comment on above: Performed By: #### C BC #### [facility] [address] [place] [address] Dr. Isaías Plunkett LYMPH # 1.2 103/ul Normal 1.2-3.8 [facility] Comment on above: Performed By: #### C BC #### [facility] [address] [place] [address] Dr. Isaías Plunkett Lymphocytes/100 WBC (Bld) 17.4 % Critically low 20.5-60.0 [facility] Comment on above: Performed By: #### C BC #### [facility] [address] [place] [address] Dr. Isaías Plunkett MANUAL DIFF REQ NO Normal [facility] Comment on above: Performed By: #### C BC #### [facility] [address] [place] [address] Dr. Isaías Plunkett MCH (RBC) [Entitic mass] 27.1 pg Normal 26.7-34.0 [facility] Comment on above: Performed By: #### C BC #### [facility] [address] [place] [address] Dr. Isaías Plunkett MCHC (RBC) [Mass/Vol] 33.1 g/dL Normal 29.9-35.2 [facility] Comment on above: Performed By: #### C BC #### [facility] [address] [place] [address] Dr. Isaías Plunkett MCV (RBC) [Entitic vol] 82.0 fL Normal 81.0-99.0 [facility] Comment on above: Performed By: #### C BC #### [facility] [address] [place] [address] Dr. Isaías Plunkett MONO # 0.4 103/ul Normal 0.3-0.8 [facility] Comment on above: Performed By: #### C BC #### [facility] [address] [place] [address] Dr. Isaías Plunkett Monocytes/100 WBC (Bld) 6.1 % Normal 1.7-12.0 [facility] Comment on above: Performed By: #### C BC #### [facility] [address] [place] [address] Dr. Isaías Plunkett NEUT # 5.1 103/ul Normal 1.4-6.5 [facility] Comment on above: Performed By: #### C BC #### [facility] [address] [address] [address] Isaías Plunkett Neutrophils/100 WBC (Bld) 75.5 % Critically high 43.0-75.0 [facility] Comment on above: Performed By: #### C BC #### [facility] [address] [place] [address] Dr. sIaías Plunkett Platelet mean volume (Bld) [Entitic vol] 9.4 fL Critically low 9.5-13.5 [facility] Comment on above: Performed By: #### C BC #### [facility] [address] [address] [address] Isaías Plunkett PLT 257 103/ul Normal 150-450 [facility] Comment on above: Performed By: #### C BC #### [facility] [address] [place] [address] Dr. Isaías Plunkett RBC 5.01 106/ul Normal 4.20-5.40 [facility] Comment on above: Performed By: #### C BC #### [facility] [address] [place] [address] Dr. Isaías Plunkett WBC 6.7 103/ul Normal 4.0-11.0 [facility] Comment on above: Performed By: #### C BC #### [facility] [address] [place] [address] Dr. Isaías Plunkett CULTURE URINEon 08-19-2022 CULTURE URINE Culture Observations : LIGHT GROWTH OF MIXED GENITAL AMI. NO POTENTIAL PATHOGENS SEEN. Normal [facility] Comment on above: Performed By: #### [id number] #### [facility] [address] [place] [address] Dr. Isaías Plunkett ER URINE PROFILEon 2 Bilirubin Ql (U) Negative Normal NEGATIVE [facility] Comment on above: Performed By: #### P REGUNATANAELR, UMICRO #### [facility] [address] [place] [address] Dr. Isaías Plunkett Clarity (U) CLEAR Normal CLEAR [facility] Comment on above: Performed By: #### P REGNATANAEL ZarcoR, UMICRO #### [facility] [address] [address] [address] Isaías Plunkett Color (U) YELLOW Normal YELLOW [facility] Comment on above: Performed By: #### P REGU, ERUR, UMICRO #### [facility] [address] [address] [address] Isaías MCFADDEN A micrscopic examination will be performed if indicated. Normal [facility] Comment on above: Performed By: #### P REGU, ERUR, UMICRO #### [facility] [address] [address] [address] Isaías Plunkett Glucose Ql (U) 500 mg/dl Abnormal NEGATIVE [facility] Comment on above: Performed By: #### P REGU, ERUR, UMICRO #### [facility] [address] [place] [address] Dr. Isaías Plunkett Hemoglobin Ql (U) Negative Normal NEGATIVE [facility] Comment on above: Performed By: #### P REGU, ERUR, UMICRO #### [facility] [address] [address] [address] Isaías Plunkett Ketones Ql (U) TRACE Abnormal NEGATIVE [facility] Comment on above: Performed By: #### P REGU, ERUR, UMICRO #### [facility] [address] [address] [address] Isaías Plunkett LEUKOCYTES TRACE Abnormal NEGATIVE [facility] Comment on above: Performed By: #### P REGU, ERUR, UMICRO #### [facility] [address] [address] [address] Isaías Plunkett Nitrite Ql (U) Negative Normal NEGATIVE [facility] Comment on above: Performed By: #### P REGU, ERUR, UMICRO #### [facility] [address] [address] [address] Isaías Plunkett pH (U) 6.0 [pH] Normal 5-9 [facility] Comment on above: Performed By: #### P REGU, ERUR, UMICRO #### [facility] [address] [address] [address] Isaías Plunkett SPEC GRAVITY 1.025 Normal 1.005-<=1.025 [facility] Comment on above: Performed By: #### P REGU ERUR, UMICRO #### [facility] [address] [address] [address] Isaías Plunkett UA PROTEIN Negative Normal NEGATIVE/ TRACE [facility] Comment on above: Performed By: #### P REGU ERUR, UMICRO #### [facility] [address] [address] [address] Isaías Plunkett UR MICRO IND INDICATED Normal [facility] Comment on above: Performed By: #### P REGUNATANAELR UMICRO #### [facility] [address] [place] [address] Dr. Isaías Plunkett Urobilinogen Qn (U) 2.0 {Katherine'U}/dL Abnormal 0.2 - 1. 0 [facility] Comment on above: Performed By: #### P REGU ERUR, UMICRO #### [facility] [address] [place] [address] Dr. Isaías Plunkett LIPASEon 08-19-2022 Lipase [Catalytic activity/Vol] 49.0 U/L Critically low 73.0-393.0 [facility] Comment on above: Performed By: #### P HVEN #### [facility] [address] [place] [address] Dr. Isaías Plunkett PH VENOUS BLOODon 08-19-2022 PCO2 VENOUS 41.0 mmHg Normal 40.0-52.0 [facility] Comment on above: Performed By: #### P HVEN #### [facility] [address] [place] [address] Dr. Isaías Plunkett pH VENOUS 7.415 Normal 7.330-7.430 [facility] Comment on above: Performed By: #### P HVEN #### [facility] [address] [address] [address] Isaías Plunkett POINT OF CARE GLUCOSEon Glucose [Mass/Vol] 187 mg/dL Critically high 74-106 T [facility] Comment on above: Performed By: #### P OCGLUC #### [facility] [address] [place] [address] Dr. Isaías Plunkett URon 08-19-2022 , QUAL Negative Normal NEGATIVE [facility] Comment on above: Performed By: #### P REGU, ERUR, UMICRO #### [facility] [address] [place] [address] Dr. Isaías Plunkett PROF 14(COMP METB)on 022 Albumin [Mass/Vol] 3.5 g/dL Normal 3.4-5.0 [facility] Comment on above: Performed By: #### P HVEN #### [facility] [address] [place] [address] Dr. Isaías Plunkett Albumin/Globulin [Mass ratio] 0.9 {ratio} Normal [facility] Comment on above: Performed By: #### P HVEN #### [facility] [address] [place] [address] Dr. Isaías Plunkett ALP [Catalytic activity/Vol] 54 U/L Normal 46-116 [facility] Comment on above: Performed By: #### P HVEN #### [facility] [address] [place] [address] Dr. Isaías Plunkett ALT [Catalytic activity/Vol] 82 U/L Critically high 14-59 [facility] Comment on above: Performed By: #### P HVEN #### [facility] [address] [place] [address] Dr. Isaías Plunkett Anion gap [Moles/Vol] 13.1 mmol/L Normal [facility] Comment on above: Performed By: #### P HVEN #### [facility] [address] [place] [address] Dr. Isaías Plunkett AST [Catalytic activity/Vol] 41 U/L Critically high 15-37 [facility] Comment on above: Performed By: #### P HVEN #### [facility] [address] [place] [address] Dr. Isaías Plunkett Bilirubin [Mass/Vol] 0.6 mg/dL Normal 0.2-1.0 [facility] Comment on above: Performed By: #### P HVEN #### [facility] [address] [address] [address] Isaías Plunkett Calcium [Mass/Vol] 8.9 mg/dL Normal 8.5-10.1 [facility] Comment on above: Performed By: #### P HVEN #### [facility] [address] [address] [address] Isaías Plunkett Chloride [Moles/Vol] 99 mmol/L Normal 98-107 [facility] Comment on above: Performed By: #### P HVEN #### [facility] [address] [address] [address] Isaías Plunkett CO2 [Moles/Vol] 25.5 mmol/L Normal 21.0-32.0 [facility] Comment on above: Performed By: #### P HVEN #### [facility] [address] [address] [address] Isaías Plunkett Creatinine [Mass/Vol] 0.66 mg/dL Normal 0.55-1.02 [facility] Comment on above: Performed By: #### P HVEN #### [facility] [address] [place] [address] Dr. Isaías Plunkett EGFR-AF [place] >60 Normal >=60 [facility] Comment on above: Performed By: #### P HVEN #### [facility] [address] [address] [address] Isaías Plunkett EGFR-NON AF [place] >60 Normal >=60 [facility] Comment on above: Performed By: #### P HVEN #### [facility] [address] [address] [address] Isaías Plunkett Globulin (S) [Mass/Vol] 3.9 g/dL Normal [facility] Comment on above: Performed By: #### P HVEN #### [facility] [address] [address] [address] Isaías Plunkett Glucose [Mass/Vol] 212 mg/dL Critically high 74-106 T [facility] Comment on above: Performed By: #### P HVEN #### [facility] [address] [address] [address] Isaías Plunkett Potassium [Moles/Vol] 3.6 mmol/L Normal 3.5-5.1 [facility] Comment on above: Performed By: #### P HVEN #### [facility] [address] [address] [address] Isaías Plunkett Protein [Mass/Vol] 7.4 g/dL Normal 6.4-8.2 [facility] Comment on above: Performed By: #### P HVEN #### [facility] [address] [address] [address] Isaías Plunkett Sodium [Moles/Vol] 134 mmol/L Critically low 136-145 Th [facility] Comment on above: Performed By: #### P HVEN #### [facility] [address] [address] [address] Isaías Plunkett Urea nitrogen [Mass/Vol] 11.0 mg/dL Normal 7.0-18.0 [facility] Comment on above: Performed By: #### P HVEN #### [facility] [address] [address] [address] Isaías Plunkett Urea nitrogen/Creatinine [Mass ratio] 16.7 mg/mg Normal [facility] Comment on above: Performed By: #### P HVEN #### [facility] [address] [address] [address] Isaías Plunkett TROPONIN, HIGH SENSITIVITYon 08-19-2022 HSTROP 4.5 pg/mL Normal 4.0-51.3 [facility] Comment on above: Result Comment: CUT- OFF POINTS HAVE BEEN ESTABLISHED BASED ON THE FOURTH UNIVERSAL DEFINITIONS OF MYOCARDIAL INFARCTION. THE UPPER REFERENCE LIMIT (URL) OF TROPONIN, DEFINED THE 99TH PERCENTILE OF cTnI DISTRIBUTION IN A REFERENCE POPULATION, HAS BEEN CONFIRMED THE DECISION THRESHOLD FOR DE DIAGNOSIS. Performed By: #### P HVEN #### [facility] [address] [address] [address] Isaías Plunkett URINE MICROSCOPIC ONLYon BACTERIA TRACE Abnormal NONE SEEN [facility] Comment on above: Performed By: #### P REGU, ERUR, UMICRO #### [facility] [address] [address] [address] Isaías Plunkett Bacteria identified Cx Nom (U) INDICATED Normal [facility] Comment on above: Performed By: #### P REGU, ERUR, UMICRO #### [facility] [address] [address] [address] Isaías Plunkett CAST NONE SEEN Normal NONE SEEN [facility] Comment on above: Performed By: #### P REGU, ERUR, UMICRO #### [facility] [address] [address] [address] Isaías Plunkett Crystals LM Nom (Urine sed) NONE SEEN Normal NONE SEEN [facility] Comment on above: Performed By: #### P REGU, ERUR, UMICRO #### [facility] [address] [address] [address] Isaías Plunkett Epithelial cells LM Ql (Urine sed) FEW Abnormal NONE SEEN /RARE [facility] Comment on above: Performed By: #### P REGU, ERUR, UMICRO #### [facility] [address] [address] [address] Isaías Plunkett MUCOUS NONE SEEN Normal NONE SEEN [facility] Comment on above: Performed By: #### P REGU, ERUR, UMICRO #### [facility] [address] [address] [address] Isaías Plunkett RBC 0-2 Normal 0-2 [facility] Comment on above: Performed By: #### P REGU, ERUR, UMICRO #### [facility] [address] [address] [address] Isaías Plunkett WBC 5-10 Abnormal NONE SEEN [facility] Comment on above: Performed By: #### P REGU, ERUR, UMICRO #### [facility] [address] [address] [address] Isaías Plunkett Vital Signs Date Time Vital Sign Value Performing Clinician Jennii lit 09-05-2024 14:40-0500 Body height 160 cm Vianey Tilley MD Work Phone: [facility] 09-05-2024 14:40-0500 Body mass index (BMI) [Ratio] 34.19 kg/m2 Vianey Tilley MD Work Phone: [facility] 09-05-2024 14:40-0500 Body weight 87.54 kg Vianey Tilley MD Work Phone: [facility] 09-05-2024 14:40-0500 Diastolic blood pressure 64 mm[Hg] Vianey Tilley MD Work Phone: [facility] 09-05-2024 14:40-0500 Systolic blood pressure 102 mm[Hg] Vianey Tilley MD Work Phone: [facility] Encounters Encounter Date Encounter Type Care Provider Facility Start: 09-05-2024 End: 09-05-2024 Office outpatient new 45 minutes Vianey Tilley MD Work Phone: [facility] Comment on above: Other infective radio recorder nataly otitis externa of both ears (Primary [...] medical examination without abnormal findings POLY ARCHIBALD [facility] Start: 09-09-2022 End: 09-10-2022 ambulatory POLY ARCHIBALD [...] Visit [facility] [address] [place] [id number] Pavan Johnson DO [address] [place] [address] [facility] Payers Date Payer Category Payer Managed Care HMO (unspecified) [employer] [id number] 2024 Unknown [id number] 2022 Private Health Insurance [facility] [id number] 1987 Unknown [id number] 593 1987 Unknown [id number]. 593 1987 Unknown [id number]. 593 1987 Unknown [id number]. 593 1987 Unknown [id number] 593 1987 Unknown [id number]. 593 1987 Unknown [id number] [id number]. 593 1987 Unknown [id number] 1259 1959 Unknown [id number] 1959 Unknown [id number] 1959 Unknown [id number] Social History Date Type Detail Facility Start: 11-22-2023 End: 09-05-2024 Tobacco smoking status [facility] Ex-smoker [facility] History of tobacco [...] 08/31/2024 Bilateral otitis media 08/31/2024 Diabetes mellitus ([facility]) 08/31/2024 Gastroesophageal reflux disease 08/31/2024 Obesity 08/31/2024 Resolved Ambulatory Problems Diagnosis Date Noted No Resolved Ambulatory Problems Past Medical History: Diagnosis Date DM (diabetes mellitus) ([facility]) Obesity (BMI 30-39.9) Well woman exam Past [...] and content) DATE CREATED AUTHOR 01/05/2023 [facility] DATE CREATED AUTHOR AUTHOR'S ORGANIZ ATION 09/08/[address] [facility] Specialists [facility] Care Teams (unrecognized sec tion and content) Silk Brusher Relationship Specialty Start Date End Date Poly Archibald MD [address] [place] [address] Referring Physician Family Medicine 08/28/24 Silk Brusher Relationship Specialty Start Date End Date Poly Archibald MD [address] [place] [address] Referring Physician Family Medicine 08/28/24 Reason for [...] BE BASED ON THE PRIMARY CLINICAL RECORDS. [facility] provides no warranty or guarantee of the accuracy or completeness of information in this document.
--- NOTE | 2024-12-18 22:13 | ED_ITS ---
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 for past couple of days has chemical smell in her nose and mouth. Not sure what it is. Feels like she is getting high from it. not short of breath. No cough or headache. Related Data Home Medications ?Medication ?Instructions ?Recorded ?Confirmed metformin 500 mg tablet 500 mg PO BID 10/30/23 12/18/24 no medications 04/05/24 empagliflozin 10 mg tablet 10 mg PO DAILY 12/11/24 12/18/24 (Jardiance) Previous Rx's ?Medication ?Instructions ?Recorded albuterol sulfate 90 mcg/actuation 2 inh inhalation Q4H PRN shortness 10/30/23 aerosol inhaler of breath or wheezing #8.5 grams loratadine 5 mg-pseudoephedrine ER 1 tab PO Q12H PRN nasal congestion 10/30/23 120 mg tablet,extended #20 tabs release,12hr (Claritin-D 12 Hour) doxycycline hyclate 100 mg capsule 100 mg PO BID 10 days #20 caps 10/23/24 ibuprofen 800 mg tablet 800 mg PO Q8H PRN pain #30 tabs 12/11/24 Allergies Allergy/AdvReac Type Severity Reaction Status Date / Time erythromycin base AdvReac Intermediate Rash Verified 12/18/24 22:05 Opioid HPI Opioid Management Most Recent Opioid Data: No Data to Display Review of Systems ROS Status of ROS 10 or more systems reviewed and unremark able except as noted in history and below PFSH PFSH Social History Smoking status: Never smoker Little interest or pleasure in doing things: not at all Feeling down, depressed, or hopeless: not at all Exam Constitutional Vital Signs, click to edit/add: Last Vital Signs Temp 97.8 F 12/18/24 22:01 Pulse 93 H 12/18/24 22:01 Resp 18 12/18/24 22:01 BP 125/89 12/18/24 22:01 Pulse Ox 98 12/18/24 22:01 O2 Del Method Room Air 12/18/24 22:01 Common normals: no apparent distress, average body habitus, oriented x3, no limitations, healthy appearing, alert and well nourished [facility] Common normals: normocephalic, head/scalp atraumatic, nasal mucous membranes and turbinates normal, moist oral mucous membranes and oropharynx normal Eye Common normals: EOMs intact bilaterally and conjunctivae normal Chest Common normals: inspection of chest normal, palpation of chest normal and inspection of breasts normal Respiratory Common normals: normal respiratory effort, no retractions, no use of accessory muscles and clear to auscultation bilaterally Cardio Common normals: regular rate, regular rhythm, S1 normal heart sound and S2 normal heart sound Extremity Common normals: normal to inspection and full ROM Neuro Common normals: oriented x3, CN's II-XII intact bilaterally, moves all extremities and no focal motor deficits Psych Appearance: grossly normal Course Vital Signs Vital signs: Vital Signs Temperature 97.8 F 12/18/24 22:01 Pulse Rate 93 H 12/18/24 22:01 Respiratory Rate 18 12/18/24 22:01 Blood Pressure 125/89 12/18/24 22:01 Pulse Oximetry 98 12/18/24 22:01 Oxygen Delivery Method Room Air 12/18/24 22:01 Temperature 97.8 F 12/18/24 22:01 Pulse Rate 93 H 12/18/24 22:01 Respiratory Rate 18 12/18/24 22:01 Blood Pressure 125/89 12/18/24 22:01 Pulse Oximetry 98 12/18/24 22:01 Oxygen Delivery Method Room Air 12/18/24 22:01 Medical Decision Making [facility] Narrative Medical decision making narrative: patient presents with atypical complaint of a smell in her nostrils and her mouth. chemical smell. 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 First time having t his experience. Her exam is completely normal. Not clear why she is experiencing this sensation advised trial of nasal steroid to see if this provides any relief and to follow up with her doctor Discharge Plan Discharge Chief Complaint: Upper Respiratory Infection Clinical Impression: Smell disorder Patient Disposition: Home, Self-Care Prescriptions / Home Meds: No Action Jardiance 10 mg tablet 10 mg PO DAILY ibuprofen 800 mg tablet 800 mg PO Q8H PRN (Reason: pain) Qty: 30 0RF Rx Instructions: with food and drink metformin 500 mg tablet 500 mg PO BID Claritin-D 12 Hour 5-120 mg tablet extended release 12 hr 1 tab PO Q12H PRN (Reason: nasal congestion) Qty: 20 0RF albuterol sulfate 90 mcg/actuation HFA aerosol inhaler 2 inh inhalation Q4H PRN (Reason: shortness of breath or wheezing) Qty: 8.5 0RF no medications doxycycline hyclate 100 mg capsule 100 mg PO BID 10 Days Qty: 20 0RF Print Language: Armenian Additional Instructions: abnormal smell and taste. Not clear to cause. Use nasal spray and follow up with your doctor later this week Referrals: JOHNSON KRAMER [Primary Care Provider] - 1 week
== END 2024-12-18 22:28 | disposition home or self-care (01) ==
PROVIDERS: Emergency Provider Internal Medicine; PCP Nurse Practitioner Family
DX: R43.9 Unspecified disturbances of smell and taste (principal)
CPT/HCPCS: 99283

== ENCOUNTER 2025-06-17 09:25 | Emergency (ER) | payer OTHER, SELFPAY ==
[2025-06-17 09:31] VITALS: BP 113/78; PULSE 91; TEMP 37.1; O2SAT 100; BMI 32.1
[2025-06-17 09:40] VITALS: O2SAT 100
--- OUTSIDE RECORDS SUMMARY | 2025-06-17 09:43 | XMS_ITS | CCD ---
Author Organization [facility] Care Team Providers Care Ink Maker Name Role Phone REQUEST, DR NONE LISTED Primary Care Unavaila ble PAY ., DR KNOG Admitting Unavailable PAY ., DR KONG Attending [...] Consulting Unavailable Unavailable Primary Care Provider Unavailcesia e Nia ARENAS, Poly Unavailable VIANEY GRACE Attending Unavailable POLY KRAMER Referring Unavailable Nia CONTRACT WRITER-C, Poly Colon Primary Care Provider Jenae Gan APRN Attending Provider [phone] Allergies Allergy Classification Reported Allergen(s) Allergy Type Date of Onset Reaction(s) Facility (6 sources) Erythromycin Drug Allergy 05-31-2013 Rash [facility] Repository Medications Current Medications Medication Drug Class(es) Dates Sig (Normalized) Sig (Original) amoxicillin 875 mg / clavulanate 125 mg oral tablet (3 sources) Penicillin-class Antibacterial Start: 06-01-2025 take 1 tablet by mouth twice daily Amoxicillin-Pot Clavulanate 875-125 mg tablet Active 1 TAB PO Twice daily 30 07June 01, 2025 12:00am Complies with drug therapy Start: 08-23-2024 End: 10-08-2024 take 1 tablet by mouth twice daily Amoxicillin-Pot Clavulanate 875-125 mg tablet Discontinued 1 TAB PO Twice daily 30 07August 23, 2024 1:00am October 08, 2024 3:37pm ciprofloxacin 3 mg/ml / dexamethasone 1 mg/ml otic suspension (2 sources) Corticosteroid, Quinolone Antimicrobial Start: 09-05-2024 End: 09-15-2024 ciprofloxacin-dexAMETHasone (CiproDEX) otic suspension Indications: Other infective chronic [...] 10 days 10 mL 1 09/05/2024 Active dextromethorphan hydrobromide 1.5 mg/ml / pyrilamine maleate 1.5 mg/ml oral solution (1 source) Uncompetitive T-hxqkqb-H-aspart ate Receptor Antagonist, Sigma-1 Agonist Start: 05-30-2025 Pyrilamine-Dextromethorphan ([place] Dm) 7.5-7.5 mg/5 mL liquid Active 20 ML PO every 6 to 8 hours as needed for cold symptoms May 30, 2025 12:00am Do not exceed more than 80 mL (4 doses) in a 24-hour period. Complies with drug therapy levonorgestrel 0.208931 mg/hr intrauterine system (3 sources) Progestin, Progestin-contain ing Intrauterine Device Levonorgestrel (Abbie na, 52 MG,) 20 MCG/DAY intrauterine device as directed Intrauterine Active metFORMIN hydrochloride 500 mg oral tablet (5 sources) Biguanide Start: 08-23-2024 take 1 tablet by mouth once daily Metformin 500 mg tablet Active 500 MG PO Daily August 23, 2024 1:00am Complies with drug therapy omeprazole 20 mg delayed release oral capsule (5 sources) Proton Pump Inhibitor Start: 08-23-2024 take 1 capsule by mouth once daily Omeprazole 20 mg capsule,delayed release(DR/EC) Active 20 MG PO Daily August 23, 2024 1:00am Complies with drug therapy Completed/Discontinued Medications Medication Drug Class(es) Dates Sig (Normalized) Sig (Original) [id number] 200 actuat albuterol 0.09 mg/actuat metered dose inhaler (5 sources) beta2-Adrenergic Agonist Start: 08-23-2024 End: 10-08-2024 Albuterol Sulfate 90 mcg/actuation HFA aerosol inhaler Discontinued 2 INH INHALATION EVERY 4-6 HOURS as needed for shortness of breath or wheezing 8.5 14 August 23, 2024 1:00am October 08, 2024 3:37pm Start: 10-30-2023 take 2 puff(s) by mo uth every four hours albuterol HFA 90 mcg/act inhaler inhale 2 puffs by mouth and INTO THE LUNGS every 4 hours if neede... (REFER TO PRESCRIPTION NOTES). 10/30/2023 Active brompheniramine maleate 0.4 mg/ml / dextromethorphan hydrobromide 2 mg/ml / pseudoephedrine hydrochloride 6 mg/ml oral solution (2 sources) alpha-Adrenergic Agonist, Uncompetitive I-rrendy-C-aspartate Receptor Antagonist, Sigma-1 Agonist Start: 10-08-2024 End: 05-30-2025 take 1 mL by mouth every six hours as needed Ysfmmehcssteluh-Azuoefnqw-Ky (Bromfed Dm) 2-30-10 mg/5 mL syrup Discontinued 10 ML PO Every 6 hours as needed for cold symptoms 200 10 October 08, 2024 1:00am May 30, 2025 9:36am Problems Active Problems Problem Classification Problem Date Documented Date Episodic/Chronic Acute bronchitis (1 source) Acute bronchitis due to other specified organisms; Translations: [ACUTE BRONCHITIS D/T SPEC ORGANISMS] Onset: 10-20-2022 Episodic Diabetes mellitus with complications (4 sources) Type 2 diabetes mellitus with hyperglycemia; Translations: [TYPE 2 DM W/HYPERGLYCEMIA] Onset: 08-19-2022 Chronic Diabetes mellitus without complication (9 sources) Type 2 diabetes mellitus without complications; Translations: [Diabetes mellitus] Onset: 11-27-2022 Chronic Diabetes mellitus without complication (1 source) Other abnormal glucose; Translations: [OTHER ABNORMAL GLUCOSE] Onset: 12-02-2022 Episodic Esophageal disorders (5 sources) Gastroesophageal reflux disease; Translations: [Gastro-esophageal reflux [...] Onset: 12-08-2022 Episodic Other upper respiratory infections (10 sources) Acute sinusitis; Translations: [Acute sinusitis, unspecified] Onset: 08-31-2024 08-31-2024 Episodic Otitis media and related conditions (5 sources) Otitis media of bilateral ears; Translations: [...] Onset: 08-21-2022 Episodic Other aftercare (1 source) MCFP (current) 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 . Normal [facility] Comment on above: Result Comment: Perf ormed at: WB Performed By: #### [id number] #### [facility] [address] [address] [address] Isaías Plunkett Age Gdln ACOG Testing 30-65 Normal [facility] Comment on above: Performed By: #### [id number] #### [facility] [address] [address] [address] Isaías Plunkett DIAGNOSIS: Comment Normal [facility] Comment on above: Result Comment: NEGA TIVE FOR INTRAEPITHELIAL LESION OR MALIGNANCY. Performed at: WB Performed By: #### [id number] #### [facility] [address] [address] [address] Isaías Plunkett HPV Aptima Negative Normal Negative [facility] Comment on above: Result Comment: This nucleic acid amplification test detects fourteen high-risk HPV types (16,18,31,33,35,39,45,51,52,56,58,59,66,68) without differentiation. Performed at: =G Performed By: #### [id number] #### [facility] [address] [address] [address] Isaías Plunkett HPV Genotype Reflex Comment Normal [facility] Comment on above: Result Comment: Crit eria not met, HPV Genotype not performed. Performed at: WB Performed By: #### [id number] #### [facility] [address] [place] [address] Dr. Isaías Plunkett Methodology: Comment Normal [facility] Comment on above: Result Comment: This liquid based ThinPrep(R) pap test was screened with the use of an image guided system. Performed at: WB Performed By: #### [id number] #### [facility] [address] [place] [address] Dr. Isaías Plunkett Note: Comment Normal [facility] Comment on above: Result Comment: The Pap smear is a screening test designed to aid in the detection of premalignant and malignant conditions of the uterine cervix. It is not a diagnostic procedure and should not be used as the sole means of detecting cervical cancer. Both false-positive and false-negative reports do occur. . Performed at: WB Performed By: #### [id number] #### [facility] [address] [place] [address] Dr. Isaías Plunkett Performed by: Comment Normal [facility] Comment on above: Result Comment: Dillon Gonsalez, Chief Executive (ASCP) Performed at: WB Performed By: #### [id number] #### [facility] [address] [place] [address] Dr. Isaías Plunkett Specimen adequacy: Comment Normal [facility] Comment on above: Result Comment: Sati sfactory for evaluation. Endocervical and/or squamous metaplastic cells (endocervical component) are present. Performed at: WB Performed By: #### [id number] #### [facility] [address] [place] [address] Dr. Isaías Plunkett GLYCOHEMOGLOBIN A1Con 2022 ADA RECOMMENDATION SEE BELOW Normal [facility] Comment on above: Result Comment: ADA RECOMMENDED LIMIT 4.0 - 6.0 ADA THERAPEUTIC TARGET < 7.0 ACTION SUGGESTED > 7.0 Performed By: #### P HVEN #### [facility] [address] [place] [address] Dr. Isaías Plunkett Glucose [Mass/Vol] 197 mg/dL Normal [facility] Comment on above: Performed By: #### P HVEN #### [facility] [address] [address] [address] Isaías Plunkett HbA1c (Bld) [Mass fraction] 8.5 % Critically high 4.5-6.2 [facility] Comment on above: Performed By: #### P HVEN #### [facility] [address] [address] [address] Isaías Plunkett Covid-19 PCR ([facility])on SARS-CoV-2 (COVID-19) RNA CHIOMA+probe Ql (Unsp spec) Not detected Normal NOT DETECTED [facility] Comment on above: Result Comment: When diagnostic [...] for this test is supported by the [place] of Health and Human Service's declaration that [...] used). Performed By: #### P HVEN #### [facility] [address] [place] [address] Dr. sIaías Plunkett INFLUENZA A AND B AGon 10-19 INFLUANEGH SEE BELOW Normal [facility] Comment on above: Result Comment: Nega tive for Flu A protein angiten. Infection due to Flu A cannot be ruled out. Flu A angiten in the sample may be below the detection limit of the test. Performed By: #### I NFLUAB #### [facility] [address] [address] [address] Isaías Plunkett INFLUBNEGH SEE BELOW Normal [facility] Comment on above: Result Comment: Nega tive for Flu B protein antigen. Infection due to Flu B cannot be ruled out. Flu B antigen in the sample may be below the detection limit of the test. Performed By: #### I NFLUAB #### [facility] [address] [place] [address] Dr. Isaías Plunkett INFLUENZA A AG Negative Normal NEGATIVE SEE COMMENT [facility] Comment on above: Performed By: #### I NFLUAB #### [facility] [address] [place] [address] Dr. Isaías Plunkett INFLUENZA B AG Negative Normal NEGATIVE SEE COMMENT [facility] Comment on above: Performed By: #### I NFLUAB #### [facility] [address] [place] [address] Dr. Isaías Plunkett INSULINon 09-10-2022 Insulin 36.6 uIU/mL Critically high 2.6-24.9 [facility] Comment on above: Performed By: #### [id number] #### [facility] [address] [place] [address] Dr. Isaías Plunkett CBC AUTO DIFFon 09-09-2022 BASO # 0.0 103/ul Normal 0.0-0.1 [facility] Comment on above: Performed By: #### C BC #### [facility] [address] [place] [address] Dr. Isaías Plunkett Basophils/100 WBC (Bld) 0.4 % Normal 0.2-2.[address] [facility] Comment on above: Performed By: #### C BC #### [facility] [address] [place] [address] Dr. Isaías Plunkett EO # 0.2 103/ul Normal 0.0-0.7 [facility] Comment on above: Performed By: #### C BC #### [facility] [address] [place] [address] Dr. Isaías Plunkett Eosinophils/100 WBC (Bld) 2.0 % Normal 0.9-7.0 [facility] Comment on above: Performed By: #### C BC #### [facility] [address] [place] [address] Dr. Isaías Plunkett Erythrocyte distribution width (RBC) [Ratio] 13.2 % Normal 11.0-15.0 [facility] Comment on above: Performed By: #### C BC #### [facility] [address] [place] [address] Dr. Isaías Plunkett Hematocrit (Bld) [Volume fraction] 39.0 % Normal 36.0-48.0 [facility] Comment on above: Performed By: #### C BC #### [facility] [address] [place] [address] Dr. Isaías Plunkett Hemoglobin (Bld) [Mass/Vol] 12.9 g/dL Normal 12.0-16.0 [facility] Comment on above: Performed By: #### C BC #### [facility] [address] [place] [address] Dr. Isaías Plunkett IG # 0.02 10e3/ul Normal 0.00-0.03 [facility] Comment on above: Performed By: #### C BC #### [facility] [address] [place] [address] Dr. Isaías Plunkett IG % 0.2 % Normal 0.0-0.5 [facility] Comment on above: Performed By: #### C BC #### [facility] [address] [place] [address] Dr. Isaías Plunkett LYMPH # 3.2 103/ul Normal 1.2-3.8 [facility] Comment on above: Performed By: #### C BC #### [facility] [address] [place] [address] Dr. Isaías Plunkett Lymphocytes/100 WBC (Bld) 40.0 % Normal 20.5-60.0 [facility] Comment on above: Performed By: #### C BC #### [facility] [address] [place] [address] Dr. Isaías Plunkett MANUAL DIFF REQ NO Normal [facility] Comment on above: Performed By: #### C BC #### [facility] [address] [place] [address] Dr. Isaías Plunkett MCH (RBC) [Entitic mass] 27.1 pg Normal 26.7-34.0 [facility] Comment on above: Performed By: #### C BC #### [facility] [address] [place] [address] Dr. Isaías Plunkett MCHC (RBC) [Mass/Vol] 33.1 g/dL Normal 29.9-35.2 [facility] Comment on above: Performed By: #### C BC #### [facility] [address] [place] [address] Dr. Isaías Plunkett MCV (RBC) [Entitic vol] 81.9 fL Normal 81.0-99.[address] [facility] Comment on above: Performed By: #### C BC #### [facility] [address] [place] [address] Dr. Isaías Plunkett MONO # 0.5 103/ul Normal 0.3-0.8 [facility] Comment on above: Performed By: #### C BC #### [facility] [address] [place] [address] Dr. Isaías Plunkett Monocytes/100 WBC (Bld) 6.2 % Normal 1.7-12.[address] [facility] Comment on above: Performed By: #### C BC #### [facility] [address] [place] [address] Dr. Isaías Plunkett NEUT # 4.1 103/ul Normal 1.4-6.5 [facility] Comment on above: Performed By: #### C BC #### [facility] [address] [place] [address] Dr. Isaías Plunkett Neutrophils/100 WBC (Bld) 51.2 % Normal 43.0-75.0 [facility] Comment on above: Performed By: #### C BC #### [facility] [address] [place] [address] Dr. Isaías Plunkett Platelet mean volume (Bld) [Entitic vol] 9.5 fL Normal 9.5-13.5 [facility] Comment on above: Performed By: #### C BC #### [facility] [address] [place], [place] [id number] Dr. Isaías Plunkett PLT 275 103/ul Normal 150-450 [facility] Comment on above: Performed By: #### C BC #### [facility] [address] [place] [address] Dr. Isaías Plunkett RBC 4.76 106/ul Normal 4.20-5.40 [facility] Comment on above: Performed By: #### C BC #### [facility] [address] [place] [address] Dr. Isaías Plunkett WBC 8.1 103/ul Normal 4.0-11.0 [facility] Comment on above: Performed By: #### C BC #### [facility] [address] [place] [address] Dr. Isaías Plunkett FREE THYROXINE INDEX T7on FTI 2.05 Normal 1.30-4.50 [facility] Comment on above: Performed By: #### P HVEN #### [facility] [address] [place] [address] Dr. Isaías Plunkett T3U 31.0 % Normal 30.0-39.0 [facility] Comment on above: Performed By: #### P HVEN #### [facility] [address] [place] [address] Dr. Isaías Plunkett T4 [Mass/Vol] 6.60 ug/dL Normal 4.80-13.90 [facility] Comment on above: Performed By: #### P HVEN #### [facility] [address] [place] [address] Dr. Isaías Plunkett GLYCOHEMOGLOBIN A1Con 2021 ADA RECOMMENDATION SEE BELOW Normal [facility] Comment on above: Result Comment: ADA RECOMMENDED LIMIT 4.0 - 6.0 ADA THERAPEUTIC TARGET < 7.0 ACTION SUGGESTED > 7.0 Performed By: #### A 1C #### [facility] [address] [place] [address] Dr. Isaías Plunkett Glucose [Mass/Vol] 226 mg/dL Normal [facility] Comment on above: Performed By: #### A 1C #### [facility] [address] [address] [address] Isaías Plunkett HbA1c (Bld) [Mass fraction] 9.5 % Critically high 4.5-6.2 [facility] Comment on above: Performed By: #### A 1C #### [facility] [address] [place] [address] Dr. Isaías Plunkett IRONon 09-09-2022 Iron [Mass/Vol] 42.0 ug/dL Critically low 50.0-170.0 [facility] Comment on above: Performed By: #### P HVEN #### [facility] [address] [address] [address] Isaías Plunkett LIPID PROFILEon 09-09-2022 CHOL-HDL RATIO NORM SEE BELOW Normal [facility] Comment on above: Result Comment: 3.3 - 4.4 LOW RISK 4.4 - 7.1 AVERAGE RISK 7.1 - 11.0 MODERATE RISK >11.0 HIGH RISK Performed By: #### P HVEN #### [facility] [address] [place] [address] Dr. Isaías Plunkett Cholesterol [Mass/Vol] 199 mg/dL Normal <=200 [facility] Comment on above: Performed By: #### P HVEN #### [facility] [address] [place] [address] Dr. Isaías Plunkett Cholesterol in HDL [Mass/Vol] 38 mg/dL Critically low 40-60 [facility] Comment on above: Performed By: #### P HVEN #### [facility] [address] [place] [address] Dr. Isaías Plunkett Cholesterol in LDL [Mass/Vol] 124.8 mg/dL Normal [facility] Comment on above: Performed By: #### P HVEN #### [facility] [address] [place] [address] Dr. Isaías Plunkett Cholesterol.total/Rosa M sterol in HDL [Mass ratio] 5.2 {ratio} Normal [facility] Comment on above: Performed By: #### P HVEN #### [facility] [address] [place] [address] Dr. Isaías Plunkett HDL NORMAL > or = 60 mg/dl - LOW CARDIOVASCULAR RISK <40 mg/dl - HIGH CARDIOVASCULAR RISK Normal [facility] Comment on above: Performed By: #### P HVEN #### [facility] [address] [address] [address] Isaías Plunkett LDL CALC NORMAL SEE BELOW Normal [facility] Comment on above: Result Comment: <100 mg/dl OPTIMAL 100 - 129 mg/dl NEAR OR ABOVE OPTIMAL 130 - 159 mg/dl BORDERLINE HIGH 160 - 189 mg/dl HIGH >190 mg/dl VERY HIGH Performed By: #### P HVEN #### [facility] [address] [address] [address] Isaías Plunkett Triglyceride [Mass/Vol] 181 mg/dL Critically high <=150 [facility] Comment on above: Performed By: #### P HVEN #### [facility] [address] [place] [address] Dr. Isaías Plunkett VLDL CALC 36.2 mg/dL Normal [facility] Comment on above: Performed By: #### P HVEN #### [facility] [address] [place] [address] Dr. Isaías Plunkett PROF 14(COMP METB)on 022 Albumin [Mass/Vol] 3.6 g/dL Normal 3.4-5.0 [facility] Comment on above: Performed By: #### P HVEN #### [facility] [address] [place] [address] Dr. Isaías Plunkett Albumin/Globulin [Mass ratio] 0.9 {ratio} Normal [facility] Comment on above: Performed By: #### P HVEN #### [facility] [address] [place] [address] Dr. Isaías Plunkett ALP [Catalytic activity/Vol] 54 U/L Normal 46-116 [facility] Comment on above: Performed By: #### P HVEN #### [facility] [address] [place] [address] Dr. Isaías Plunkett ALT [Catalytic activity/Vol] 64 U/L Critically high 14-59 [facility] Comment on above: Performed By: #### P HVEN #### [facility] [address] [address] [address] Isaías Plunkett Anion gap [Moles/Vol] 13.0 mmol/L Normal Th [facility] Comment on above: Performed By: #### P HVEN #### [facility] [address] [address] [address] Isaías Plunkett AST [Catalytic activity/Vol] 17 U/L Normal 15-37 [facility] Comment on above: Performed By: #### P HVEN #### [facility] [address] [address] [address] Isaías Plunkett Bilirubin [Mass/Vol] 0.2 mg/dL Normal 0.2-1.0 [facility] Comment on above: Performed By: #### P HVEN #### [facility] [address] [place] [address] Dr. Isaías Plunkett Calcium [Mass/Vol] 8.8 mg/dL Normal 8.5-10.1 [facility] Comment on above: Performed By: #### P HVEN #### [facility] [address] [address] [address] Isaías Plunkett Chloride [Moles/Vol] 100 mmol/L Normal 98-107 [facility] Comment on above: Performed By: #### P HVEN #### [facility] [address] [place] [address] Dr. Isaías Plunkett CO2 [Moles/Vol] 26.2 mmol/L Normal 21.0-32.0 [facility] Comment on above: Performed By: #### P HVEN #### [facility] [address] [place] [address] Dr. Isaías Plunkett Creatinine [Mass/Vol] 0.59 mg/dL Normal 0.55-1.02 [facility] Comment on above: Performed By: #### P HVEN #### [facility] [address] [place] [address] Dr. Isaías Plunkett EGFR-AF ROMANIAN >60 Normal >=60 [facility] Comment on above: Performed By: #### P HVEN #### [facility] [address] [address] [address] Isaías Plunkett EGFR-NON AF ROMANIAN >60 Normal >=60 [facility] Comment on above: Performed By: #### P HVEN #### [facility] [address] [address] [address] Isaías Plunkett Globulin (S) [Mass/Vol] 4.0 g/dL Normal [facility] Comment on above: Performed By: #### P HVEN #### [facility] [address] [address] [address] Isaías Plunkett Glucose [Mass/Vol] 188 mg/dL Critically high 74-[address] [facility] Comment on above: Performed By: #### P HVEN #### [facility] [address] [place] [address] Dr. Isaías Plunkett Potassium [Moles/Vol] 4.2 mmol/L Normal 3.5-5.1 [facility] Comment on above: Performed By: #### P HVEN #### [facility] [address] [address] [address] Isaías Plunkett Protein [Mass/Vol] 7.6 g/dL Normal 6.4-8.2 [facility] [facility] Comment on above: Performed By: #### P HVEN #### [facility] [address] [place] [address] Dr. Isaías Plunkett Sodium [Moles/Vol] 135 mmol/L Critically low 136-145 [facility] Comment on above: Performed By: #### P HVEN #### [facility] [address] [place] [address] Dr. Isaías Plunkett Urea nitrogen [Mass/Vol] 9.0 mg/dL Normal 7.0-18.0 [facility] Comment on above: Performed By: #### P HVEN #### [facility] [address] [place] [address] Dr. Isaías Plunkett Urea nitrogen/Creatinine [Mass ratio] 15.3 mg/mg Normal [facility] Comment on above: Performed By: #### P HVEN #### [facility] [address] [place] [address] Dr. Isaías Plunkett TSHon 09-09-2022 TSH 2.268 uIU/mL Normal 0.358-3.740 [facility] Comment on above: Performed By: #### P HVEN #### [facility] [address] [place] [address] Dr. Isaías Plunkett CBC AUTO DIFFon 08-19-2022 BASO # 0.0 103/ul Normal 0.0-0.1 [facility] Comment on above: Performed By: #### C BC #### [facility] [address] [place] [address] Dr. Isaías Plunkett Basophils/100 WBC (Bld) 0.3 % Normal 0.2-2.[address] [facility] Comment on above: Performed By: #### C BC #### [facility] [address] [place] [address] Dr. Isaías Plunkett EO # 0.0 103/ul Normal 0.0-0.7 [facility] Comment on above: Performed By: #### C BC #### [facility] [address] [place] [address] Dr. Isaías Plunkett Eosinophils/100 WBC (Bld) 0.4 % Critically low 0.9-7.0 [facility] Comment on above: Performed By: #### C BC #### [facility] [address] [place] [address] Dr. Isaías Plunkett Erythrocyte distribution width (RBC) [Ratio] 13.3 % Normal 11.0-15.0 [facility] Comment on above: Performed By: #### C BC #### [facility] [address] [place] [address] Dr. Isaías Plunkett Hematocrit (Bld) [Volume fraction] 41.1 % Normal 36.0-48.0 [facility] Comment on above: Performed By: #### C BC #### [facility] [address] [place] [address] Dr. Isaías Plunkett Hemoglobin (Bld) [Mass/Vol] 13.6 g/dL Normal 12.0-16.0 [facility] Comment on above: Performed By: #### C BC #### [facility] [address] [place] [address] Dr. Isaías Plunkett IG # 0.02 10e3/ul Normal 0.00-0.03 [facility] Comment on above: Performed By: #### C BC #### [facility] [address] [place] [address] Dr. Isaías Plunkett IG % 0.3 % Normal 0.0-0.5 [facility] Comment on above: Performed By: #### C BC #### [facility] [address] [place] [address] Dr. Isaías Plunkett LYMPH # 1.2 103/ul Normal 1.2-3.8 [facility] Comment on above: Performed By: #### C BC #### [facility] [address] [place] [address] Dr. Isaías Plunkett Lymphocytes/100 WBC (Bld) 17.4 % Critically low 20.5-60.0 [facility] Comment on above: Performed By: #### C BC #### [facility] [address] [place] [address] Dr. Isaías Plunkett MANUAL DIFF REQ NO Normal [facility] Comment on above: Performed By: #### C BC #### [facility] [address] [place] [address] Dr. Isaías Plunkett MCH (RBC) [Entitic mass] 27.1 pg Normal 26.7-34.0 [facility] Comment on above: Performed By: #### C BC #### [facility] [address] [place] [address] Dr. Isaías Plunkett MCHC (RBC) [Mass/Vol] 33.1 g/dL Normal 29.9-35.2 [facility] Comment on above: Performed By: #### C BC #### [facility] [address] [place] [address] Dr. Isaías Plunkett MCV (RBC) [Entitic vol] 82.0 fL Normal 81.0-99.[address] [facility] Comment on above: Performed By: #### C BC #### [facility] [address] [place] [address] Dr. Isaías Plunkett MONO # 0.4 103/ul Normal 0.3-0.8 [facility] Comment on above: Performed By: #### C BC #### [facility] [address] [place] [address] Dr. Isaías Plunkett Monocytes/100 WBC (Bld) 6.1 % Normal 1.7-12.[address] [facility] Comment on above: Performed By: #### C BC #### [facility] [address] [place] [address] Dr. Isaías Plunkett NEUT # 5.1 103/ul Normal 1.4-6.5 [facility] Comment on above: Performed By: #### C BC #### [facility] [address] [place] [address] Dr. Isaías Plunkett Neutrophils/100 WBC (Bld) 75.5 % Critically high 43.0-75.0 [facility] Comment on above: Performed By: #### C BC #### [facility] [address] [place] [address] Dr. Isaías Plunkett Platelet mean volume (Bld) [Entitic vol] 9.4 fL Critically low 9.5-13.5 [facility] Comment on above: Performed By: #### C BC #### [facility] [address] [place] [address] Dr. Isaías Plunkett PLT 257 103/ul Normal 150-450 [facility] Comment on above: Performed By: #### C BC #### [facility] [address] [place] [address] Dr. Isaías Plunkett RBC 5.01 106/ul Normal 4.20-5.40 [facility] Comment on above: Performed By: #### C BC #### [facility] [address] [place] [address] Dr. Isaías Plunkett WBC 6.7 103/ul Normal 4.0-11.0 [facility] Comment on above: Performed By: #### C BC #### [facility] [address] [place] [address] Dr. Isaías Plunkett CULTURE URINEon 08-19-2022 CULTURE URINE Culture Observations: LIGHT GROWTH OF MIXED GENITAL AMI. NO POTENTIAL PATHOGENS SEEN. Normal [facility] Comment on above: Performed By: #### [id number] #### [facility] [address] [address] [address] Isaías Plunkett ER URINE PROFILEon 2 Bilirubin Ql (U) Negative Normal NEGATIVE [facility] Comment on above: Performed By: #### P REGU, ERUR, UMICRO #### [facility] [address] [address] [address] Isaías Plunkett Clarity (U) CLEAR Normal CLEAR [facility] Comment on above: Performed By: #### P REGU, ERUR, UMICRO #### [facility] [address] [place] [address] Dr. Isaías Plunkett Color (U) YELLOW Normal YELLOW [facility] Comment on above: Performed By: #### P REGU, ERUR, UMICRO #### [facility] [address] [address] [address] Isaías MCFADDNE A micrscopic examination will be performed if indicated. Normal [facility] Comment on above: Performed By: #### P REGU, ERUR, UMICRO #### [facility] [address] [address] [address] Isaías Plunkett Glucose Ql (U) 500 mg/dl Abnormal NEGATIVE [facility] Comment on above: Performed By: #### P REGU, ERUR, UMICRO #### [facility] [address] [address] [address] Isaías Plunkett Hemoglobin Ql (U) Negative Normal NEGATIVE [facility] Comment on above: Performed By: #### P REGU, ERUR, UMICRO #### [facility] [address] [address] [address] Isaías Plunkett Ketones Ql (U) TRACE Abnormal NEGATIVE [facility] Comment on above: Performed By: #### P REGU, ERUR, UMICRO #### [facility] [address] [place] [address] Dr. Isaías Plunkett LEUKOCYTES TRACE Abnormal NEGATIVE [facility] Comment on above: Performed By: #### P REGU, ERUR, UMICRO #### [facility] [address] [address] [address] Isaías Plunkett Nitrite Ql (U) Negative Normal NEGATIVE [facility] Comment on above: Performed By: #### P REGU, ERUR, UMICRO #### [facility] [address] [address] [address] Isaías Plunkett pH (U) 6.0 [pH] Normal 5-9 [facility] Comment on above: Performed By: #### P REGU, ERUR, UMICRO #### [facility] [address] [place] [address] Dr. Isaías Plunkett SPEC GRAVITY 1.025 Normal 1.005-<=1.025 [facility] Comment on above: Performed By: #### P REGU, ERUR, UMICRO #### [facility] [address] [place] [address] Dr. Isaías Plunkett UA PROTEIN Negative Normal NEGATIVE/ TRACE [facility] Comment on above: Performed By: #### P REGU, ERUR, UMICRO #### [facility] [address] [place] [address] Dr. Isaías Plunkett UR MICRO IND INDICATED Normal [facility] Comment on above: Performed By: #### P REGU, ERUR, UMICRO #### [facility] [address] [address] [address] Isaías Plunkett Urobilinogen Qn (U) 2.0 {Katherine'U}/dL Abnormal 0.2 - 1. 0 [facility] Comment on above: Performed By: #### P REGU, ERUR, UMICRO #### [facility] [address] [place] [address] Dr. Isaías Plunkett LIPASEon 08-19-2022 Lipase [Catalytic activity/Vol] 49.0 U/L Critically low 73.0-393.0 [facility] Comment on above: Performed By: #### P HVEN #### [facility] [address] [place] [address] Dr. Isaías Plunkett PH VENOUS BLOODon 08-19-2022 PCO2 VENOUS 41.0 mmHg Normal 40.0-52.0 [facility] Comment on above: Performed By: #### P HVEN #### [facility] [address] [address] [address] Isaías Plunkett pH VENOUS 7.415 Normal 7.330-7.430 [facility] Comment on above: Performed By: #### P HVEN #### [facility] [address] [address] [address] Isaías Plunkett POINT OF CARE GLUCOSEon Glucose [Mass/Vol] 187 mg/dL Critically high 74-106 [facility] Comment on above: Performed By: #### P OCGLUC #### [facility] [address] [address] [address] Isaías Plunkett URon 08-19-2022 , QUAL Negative Normal NEGATIVE [facility] Comment on above: Performed By: #### P REGU, ERUR, UMICRO #### [facility] [address] [address] [address] Isaías Plunkett PROF 14(COMP METB)on 022 Albumin [Mass/Vol] 3.5 g/dL Normal 3.4-5.0 [facility] Comment on above: Performed By: #### P HVEN #### [facility] [address] [address] [address] Isaías Plunkett Albumin/Globulin [Mass ratio] 0.9 {ratio} Normal [facility] Comment on above: Performed By: #### P HVEN #### [facility] [address] [address] [address] Isaías Plunkett ALP [Catalytic activity/Vol] 54 U/L Normal 46-116 [facility] Comment on above: Performed By: #### P HVEN #### [facility] [address] [address] [address] Isaías Plunkett ALT [Catalytic activity/Vol] 82 U/L Critically high 14-59 [facility] Comment on above: Performed By: #### P HVEN #### [facility] [address] [address] [address] Isaías Plunkett Anion gap [Moles/Vol] 13.1 mmol/L Normal [facility] Comment on above: Performed By: #### P HVEN #### [facility] [address] [address] [address] Isaías Plunkett AST [Catalytic activity/Vol] 41 U/L Critically high 15-37 [facility] Comment on above: Performed By: #### P HVEN #### [facility] [address] [address] [address] Isaías Plunkett Bilirubin [Mass/Vol] 0.6 mg/dL Normal 0.2-1.0 [facility] Comment on above: Performed By: #### P HVEN #### [facility] [address] [address] [address] Isaías Plunkett Calcium [Mass/Vol] 8.9 mg/dL Normal 8.5-10.1 [facility] Comment on above: Performed By: #### P HVEN #### [facility] [address] [address] [address] Isaías Plunkett Chloride [Moles/Vol] 99 mmol/L Normal 98-107 [facility] Comment on above: Performed By: #### P HVEN #### [facility] [address] [address] [address] Isaías Plunkett CO2 [Moles/Vol] 25.5 mmol/L Normal 21.0-32.0 [facility] Comment on above: Performed By: #### P HVEN #### [facility] [address] [address] [address] Isaías Plunkett Creatinine [Mass/Vol] 0.66 mg/dL Normal 0.55-1.02 [facility] Comment on above: Performed By: #### P HVEN #### [facility] [address] [address] [address] Isaías Plunkett EGFR-AF ROMANIAN >60 Normal >=60 [facility] Comment on above: Performed By: #### P HVEN #### [facility] [address] [address] [address] Isaías Plunkett EGFR-NON AF ROMANIAN >60 Normal >=60 [facility] Comment on above: Performed By: #### P HVEN #### [facility] [address] [address] [address] Isaías Plunkett Globulin (S) [Mass/Vol] 3.9 g/dL Normal [facility] Comment on above: Performed By: #### P HVEN #### [facility] [address] [address] [address] Isaías Plunkett Glucose [Mass/Vol] 212 mg/dL Critically high 74-[address] [facility] Comment on above: Performed By: #### P HVEN #### [facility] [address] [address] [address] Isaías Plunkett Potassium [Moles/Vol] 3.6 mmol/L Normal 3.5-5.1 [facility] Comment on above: Performed By: #### P HVEN #### [facility] [address] [address] [address] Isaías Plunkett Protein [Mass/Vol] 7.4 g/dL Normal 6.4-8.2 [facility] Comment on above: Performed By: #### P HVEN #### [facility] [address] [place] [address] Dr. Isaías Plunkett Sodium [Moles/Vol] 134 mmol/L Critically low 136-145 [facility] Comment on above: Performed By: #### P HVEN #### [facility] [address] [address] [address] Isaías Plunkett Urea nitrogen [Mass/Vol] 11.0 mg/dL Normal 7.0-18.0 [facility] Comment on above: Performed By: #### P HVEN #### [facility] [address] [address] [address] Isaías Plunkett Urea nitrogen/Creatinine [Mass ratio] 16.7 mg/mg Normal [facility] Comment on above: Performed By: #### P HVEN #### [facility] [address] [address] [address] Isaías Plunkett TROPONIN, HIGH SENSITIVITYon 08-19-2022 HSTROP 4.5 pg/mL Normal 4.0-51.3 [facility] Comment on above: Result Comment: CUT- OFF POINTS HAVE BEEN ESTABLISHED BASED ON THE FOURTH UNIVERSAL DEFINITIONS OF MYOCARDIAL INFARCTION. THE UPPER REFERENCE LIMIT (URL) OF TROPONIN, DEFINED THE 99TH PERCENTILE OF cTnI DISTRIBUTION IN A REFERENCE POPULATION, HAS BEEN CONFIRMED THE DECISION THRESHOLD FOR [place] DIAGNOSIS. Performed By: #### P HVEN #### [facility] [address] [place] [address] Dr. Isaías Plunkett URINE MICROSCOPIC ONLYon BACTERIA TRACE Abnormal NONE SEEN [facility] Comment on above: Performed By: #### P REGU, ERUR, UMICRO #### [facility] [address] [place] [address] Dr. Isaías Plunkett Bacteria identified Cx Nom (U) INDICATED Normal [facility] Comment on above: Performed By: #### P REGU, ERUR, UMICRO #### [facility] [address] [place] [address] Dr. Isaías Plunkett CAST NONE SEEN Normal NONE SEEN [facility] Comment on above: Performed By: #### P REGU, ERUR, UMICRO #### [facility] [address] [place] [address] Dr. Isaías Plunkett Crystals LM Nom (Urine sed) NONE SEEN Normal NONE SEEN [facility] Comment on above: Performed By: #### P REGU, ERUR, UMICRO #### [facility] [address] [place] [address] Dr. Isaías Plunkett Epithelial cells LM Ql (Urine sed) FEW Abnormal NONE SEEN /RARE [facility] Comment on above: Performed By: #### P REGU, ERUR, UMICRO #### [facility] [address] [place] [address] Dr. Isaías Plunkett MUCOUS NONE SEEN Normal NONE SEEN [facility] Comment on above: Performed By: #### P REGU, ERUR, UMICRO #### [facility] [address] [place] [address] Dr. Isaías Plunkett RBC 0-2 Normal 0-2 [facility] Comment on above: Performed By: #### P DIONISIO LEMUS UMICRO #### [facility] [address] [address] [address] Isaías Plunkett WBC 5-10 Abnormal NONE SEEN [facility] Comment on above: Performed By: #### P DIONISIO LEMUS UMICRO #### [facility] [address] [address] [address] Isaías Plunkett Vital Signs Date Time Vital Sign Value Performing Clinician Facility 06-01-2025 16:54-0400 Body height 162.56 cm Poly Kramer CONTRACT WRITER-C Work Phone: [facility] 06-01-2025 16:54-0400 Body mass index (BMI) [Ratio] 31.2 kg/m2 Poly Kramer CONTRACT WRITER[employer]C Work Phone: [facility] 06-01-2025 16:54-0400 Body temperature 98.2 [degF] Poly Kramer CONTRACT WRITER[employer]C Work Phone: [facility] 06-01-2025 16:54-0400 Body weight 82.66 kg Poly Kramer CONTRACT WRITER[employer]C Work Phone: [facility] 06-01-2025 16:54-0400 Diastolic blood pressure 82 mm[Hg] Poly Kramer CONTRACT WRITER-C Work Phone: [facility] 06-01-2025 16:54-0400 Heart rate 89 /min Poly Kramer CONTRACT WRITER-C Work Phone: [facility] 06-01-2025 16:54-0400 SaO2% (BldA) [Mass fraction] 98 % Poly Kramer CONTRACT WRITER[employer]C Work Phone: [facility] 06-01-2025 16:54-0400 Systolic blood pressure 119 mm[Hg] Poly Kramer CONTRACT WRITER-C Work Phone: [facility] 05-30-2025 09:32-0400 Body height 162.56 cm Poly Kramer CONTRACT WRITER-C Work Phone: [facility] 05-30-2025 09:32-0400 Body mass index (BMI) [Ratio] 31.6 kg/m2 Poly Nia CONTRACT WRITER-C Work Phone: [facility] 05-30-2025 09:32-0400 Body temperature 97.3 [degF] Poly Kramer CONTRACT WRITER-C Work Phone: [facility] 05-30-2025 09:32-0400 Body weight 83.46 kg Poly Nia CONTRACT WRITER-C Work Phone: [facility] 05-30-2025 09:32-0400 Diastolic blood pressure 73 mm[Hg] Poly Kramer CONTRACT WRITER-C Work Phone: [facility] 05-30-2025 09:32-0400 Heart rate 90 /min Poly Kramer CONTRACT WRITER-C Work Phone: [facility] 05-30-2025 09:32-0400 Respiratory rate 16 /min Poly Nia CONTRACT WRITER-C Work Phone: [facility] 05-30-2025 09:32-0400 SaO2% (BldA) [Mass fraction] 98 % Poly Kramer CONTRACT WRITER-C Work Phone: [facility] 05-30-2025 09:32-0400 Systolic blood pressure 120 mm[Hg] Poly Kramer CONTRACT WRITER-C Work Phone: [facility] 09-05-2024 14:40-0500 Body height 160 cm Vianey Grace MD Work Phone: [facility] 09-05-2024 14:40-0500 Body mass index (BMI) [Ratio] 34.19 kg/m2 Vinaey Grace MD Work Phone: [facility] 09-05-2024 14:40-0500 Body weight 87.54 kg Vianey Grace MD Work Phone: [facility] 09-05-2024 14:40-0500 Diastolic blood pressure 64 mm[Hg] Vianey Grace MD Work Phone: [facility] 09-05-2024 14:40-0500 Systolic blood pressure 102 mm[Hg] Vianey Grace MD Work Phone: [facility] Encounters Encounter Date Encounter Type Care Provider Facility Start: 06-01-2025 End: 06-01-2025 ambulatory Poly Kramer CONTRACT WRITER-C Work Phone: [facility] Work Phone: Start: 06-01-2025 End: 06-01-2025 Patient encounter procedure Jenae Benton [facility] Work Phone: Start: 05-30-2025 End: 05-30-2025 ambulatory Poly Kramer CONTRACT WRITER-C Work Phone: [facility] Work Phone: Start: 05-30-2025 End: 05-30-2025 Patient encounter procedure Jenae Benton [facility] Work Phone: Start: 09-05-2024 End: 09-05-2024 Office outpatient new 45 minutes Vianey Grace MD Work Phone: [facility] Comment on above: 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 externa of both ears (Primary Dx); Bilateral impacted cerumen Start: 09-05-2024 End: 09-05-2024 ambulatory VIANEY GRACE Not Available Start: 09-05-2024 End: 09-05-2024 Bamboo flowsheet Vianey Grace MD Work Phone: [facility] Start: 09-05-2024 End: 09-05-2024 Bamboo flowsheet Vianey Grace MD Work Phone: [facility] Start: 11-22-2023 Chart abstracting Pavan Johnson DO Work Phone: [facility] Start: 12-28-2022 End: 12-29-2022 ambulatory POLY NIA Facility:[facility] Start: 12-08-2022 End: 12-08-2022 ambulatory PAVAN JOHNSON Facility:[facility] Start: 11-27-2022 End: 11-28-2022 ambulatory POLY KRAMER Facility:[facility] Start: 10-19-2022 End: 10-19-[address] SUSI MALONEY . Facility:[facility] Start: 09-12-2022 Encounter for genera l adult medical examination without abnormal findings POLY KRAMER [facility] Start: 09-09-2022 End: 09-10-2022 ambulatory POLY KRAMER Facility:[facility] Start: 09-09-2022 End: 09-10-2022 Encounter for general adult medical examination without abnormal findings POLY KRAMER Facility:[facility] Start: 08-19-2022 End: 08-19-[address] ZHONG LISTED REQUEST Facility:[facility] Start: 07-20-2022 End: 07-21-2022 ambulatory CHARLIE SALINAS Facility:[facility] Procedures Date Procedure Procedure Detail Performing Clinician Start: 06-01-2025 Quick Strep (POC) Whitney Kramer CONTRACT WRITER-C Work Phone: Start: 05-30-2025 Quick Strep (POC) Whitney Kramer CONTRACT WRITER-C Work Phone: Plan of Treatment Date Care Activity Detail Author Start: 12-15-2023 End: 12-15-2023 Patient encounter procedure 12/15/2023 3:00 PM EST Office Visit [facility] [address] [place] [address] Pavan Johnson DO [address] [place] [address] [facility] Payers Date Payer Category Payer Managed Care HMO (unspecified) [employer] [id number] 2024 Unknown [id number] 2022 Private Health Insurance [facility] [id number] 1987 Unknown [id number] 593 1987 Unknown [id number] 593 1987 Unknown [id number]. 593 1987 Unknown [id number]. 593 1987 Unknown [id number] [id number]. 593 1987 Unknown [id number] [id number]. 593 1987 Unknown [id number] [id number]. 593 1987 Unknown [id number]. 1259 1959 Unknown [id number] 1957 Unknown [id number] 1957 Unknown [id number] Unknown [facility] [id number] Social History Date Type Detail Facility Start: 11-22-2023 End: 08-23-2024 Tobacco smoking status NHIS Ex-smoker [facility] History of tobacco use Current smoker [facility] History of tobacco use Cigarette Smoker [facility] Start: 11-22-2023 End: 09-05-2024 Alcohol intake Current drinker of alcohol (finding) [facility] Start: 11-22-2023 Alcohol Comment occasional [facility] Start: 1985 Sex Assigned At Not on file [facility] Start: 09-05-2024 Gender identity Not on file [facility] Start: 09-05-2024 Tobacco use and exposure Smokeless tobacco non-user [facility] Start: 09-05-2024 History of Social function [facility] Sex Female (finding) [facility] Start: 1985 Sex Assigned At Female F [facility] Evaluation note 05-30-2025 Note Date & Type Note Facility 05-30-2025 Evaluation note Diagnosis Onset Date Resolution Acute viral pharyngitis acute A ugust 2024 9:28am Viral URI with cough acute Augu st 2024 9:28am [facility] Work Phone: History of Present illness Narrative 09-05-2024 Vianey Grace MD - 09/05/2024 2:40 PM EST Note [...] 08/31/2024 Bilateral otitis media 08/31/2024 Diabetes mellitus (CMS/HCC) 08/31/2024 Gastroesophageal reflux disease 08/31/2024 Obesity 08/31/2024 Resolved Ambulatory Problems Diagnosis Date Noted No Resolved Ambulatory Problems Past Medical History: Diagnosis Date DM (diabetes mellitus) ([facility]) Obesity (BMI 30-39.9) Well woman exam Past [...] cerumen documented in this encounter [facility] Evaluation note Note Date & Type Note Facility Evaluation note No assessment information availa ble [facility] Work Phone: Reason for referral (narrative) Note Date & Type Note Facility Reason for referral (narrative) No reason for referral information available [facility] Work Phone: Summary Purpose Family History Relationship Condition Age at Onset Recorded Date/T doug father Myocardial infarction Unknown Diabetes mellitus Unknown Advance Directives Advance Directive Response Recorded Date/ Time Advance Directives No August 11:43am Chief Complaint and Reason for Visit Chief Complaint Admit Date Sore throat, cough May 30, 2025 9: 28am Chief Complaint Admit Date Sore throat, cough May 30, 2025 9: 28am Sore throat June 01, 2025 4: 54pm Reason for Visit Admit Date Acute viral pharyngitis May 30 9:28am Viral URI with cough May 30, 2025 9 :28am Additional Source Comments INFORMATION SOURCE (unrecogn ized section and content) DATE CREATED AUTHOR 01/05/2023 Bello Pimentel [facility] pital DATE CREATED AUTHOR AUTHOR'S ORGANIZ ATION 09/08/2024 [facility] EPIC Care Teams (unrecognized sec tion and content) Ink Maker Relationship Specialty Start Date End Date Poly Kramer MD [address] [place] [address] Referring Physician Family Medicine 08/28/24 Ink Maker Relationship Specialty Start Date End Date Poly Kramer MD [address] [place] [id number] Referring Physician Family Medicine 08/28/24 Team Status: Active Member Role Status Dates SANDY Mccain Primary Care Provider Active Team Status: Inactive Member Role Status Dates SANDY Mccain Primary Care Provider Active Start: May 30, 2025 End: May 30, 2025 Jenae Gan APRN Attending Provider Active S tart: May 30, 2025 End: May 30, 2025 Team Status: Inactive Member Role Status Dates Poly Kramer NP-C Primary Care Provider Active Start: June 01, 2025 End: June 01, 2025 Jenae Gan APRN Attending Provider Active S tart: June 01, 2025 End: June 01, 2025 Reason for Visit (unrecogniz ed section and content) Reason Comments Ear Problem Sinusitis Goals (unrecognized section and content) Goals may be documented in a n alternate sectionGoals may be documented in an alternate section FOR RECORDS PERTAINING TO PATIENTS WHO ARE [...] BE BASED ON THE PRIMARY CLINICAL RECORDS. [facility] [employer] provides no warranty or guarantee of the accuracy or completeness of information in this document.
[2025-06-17] MEDS: DEXAMETHASONE 4 MG TABLET 10 MG PO (10:05)
--- NOTE | 2025-06-17 14:56 | ED.GENADUL1 ---
HPI HPI - General Adult General Chief complaint: Upper Respiratory Infection Stated complaint: urti complaints Time Seen by Provider: 06/17/25 09:41 Source: patient Mode of arrival: walk-in Limitations: no limitations History of Present Illness HPI narrative: Patient is a 39-year-old female presenting to the emergency department for evaluation of a sore throat. Patient states she was dealing with an illness 3 weeks ago. She was placed on antibiotics, improved, but over the last couple days has had recurrence of her sore throat. She states has a mild cough as well. She denies any shortness of breath. No fevers or chills. No ear pain she is otherwise healthy with no chronic medical conditions. Related Data Home Medications ?Medication ?Instructions ?Recorded ?Confirmed metformin 500 mg tablet 500 mg PO DAILY 10/30/23 06/17/25 no medications 04/05/24 empagliflozin 10 mg tablet 10 mg PO DAILY 12/11/24 12/18/24 (Jardiance) Previous Rx's ?Medication ?Instructions ?Recorded albuterol sulfate 90 mcg/actuation 2 inh inhalation Q4H PRN shortness 10/30/23 aerosol inhaler of breath or wheezing #8.5 grams loratadine 5 mg-pseudoephedrine ER 1 tab PO Q12H PRN nasal congestion 10/30/23 120 mg tablet,extended #20 tabs release,12hr (Claritin-D 12 Hour) doxycycline hyclate 100 mg capsule 100 mg PO BID 10 days #20 caps 10/23/24 ibuprofen 800 mg tablet 800 mg PO Q8H PRN pain #30 tabs 12/11/24 Allergies Allergy/AdvReac Type Severity Reaction Status Date / Time erythromycin base AdvReac Intermediate Rash Verified 06/17/25 09:31 Opioid HPI Opioid Management Most Recent Opioid Data: Last Pain Scale 6 Today, 09:40 Review of Systems ROS Status of ROS 10 or more systems reviewed and unremarkable except as noted in history and below PFSH PFSH Social History Smoking status: Never smoker Little interest or pleasure in doing things: not at all Feeling down, depressed, or hopeless: not at all Exam Narrative Exam Narrative: CONSTITUTIONAL: Well-appearing, answering questions and following commands appropriately SKIN: Was warm and dry. EYES: Sclerae white. No conjunctival exudates EARS, NOSE, THROAT: There is mild, symmetric tonsil enlargement and erythema without exudates. Moist oral mucosa. Uvula midline. No peritonsillar abscess. No trismus. No neck swelling. Speaking with a normal voice. RESPIRATORY: Clear to auscultation bilaterally, no wheezes, crackles, or stridor, no use of accessory muscles CARDIOVASCULAR: Normal rate and regular rhythm. There is no S3, S4, murmur, rub. GASTROINTESTINAL: Abdomen is nondistended. MUSCULOSKELETAL: No peripheral edema. NEUROLOGIC: Patient is awake and alert. Facies were symmetrical. Constitutional Vital Signs, click to edit/add: Last Vital Signs Temp 98.7 F 06/17/25 09:31 Pulse 91 H 06/17/25 09:31 Resp 16 06/17/25 09:31 BP 113/78 06/17/25 09:31 Pulse Ox 100 06/17/25 09:40 O2 Del Method Room Air 06/17/25 09:40 Course Vital Signs Vital signs: Vital Signs Temperature 98.7 F 06/17/25 09:31 Pulse Rate 91 H 06/17/25 09:31 Respiratory Rate 16 06/17/25 09:31 Blood Pressure 113/78 06/17/25 09:31 Pulse Oximetry 100 06/17/25 09:31 Oxygen Delivery Method Room Air 06/17/25 09:31 Temperature 98.7 F 06/17/25 09:31 Pulse Rate 91 H 06/17/25 09:31 Respiratory Rate 16 06/17/25 09:31 Blood Pressure 113/78 06/17/25 09:31 Pulse Oximetry 100 06/17/25 09:40 Oxygen Delivery Method Room Air 06/17/25 09:40 Medical Decision Making [facility] Narrative Medical decision making narrative: Patient is a healthy 39-year-old female presenting to the emergency department with a 48-hour history of a sore throat and mild cough. Her vital signs are within normal limits. She is afebrile and hemodynamically stable. Examination as noted above. Patient's history and physical examination is consistent with a viral pharyngitis, viral URI. She has no shortness of breath, hypoxia, and has clear breath sounds bilaterally, making pneumonia of low likelihood. No concern for any acute airway compromise. She is no evidence of peritonsillar abscess or severe ENT infection. Patient will be treated symptomatically with oral Decadron here in the ED I do believe the patient is stable for discharge at this time. They were instructed to follow up with her PCP as needed. Return precautions were given including any new or worsening symptoms. Patient understands and agrees to the plan. FINAL IMPRESSION: #Acute viral pharyngitis DISPOSITION: Discharged home CONDITION: Good Discharge Plan Discharge Chief Complaint: Upper Respiratory Infection Clinical Impression: Pharyngitis Patient Disposition: Home, Self-Care Time of Disposition Decision: 09:58 Condition: Good Mode of Transportation: Private Vehicle Prescriptions / Home Meds: No Action Jardiance 10 mg tablet 10 mg PO DAILY ibuprofen 800 mg tablet 800 mg PO Q8H PRN (Reason: pain) Qty: 30 0RF Rx Instructions: with food and drink metformin 500 mg tablet 500 mg PO DAILY Claritin-D 12 Hour 5-120 mg tablet extended release 12 hr 1 tab PO Q12H PRN (Reason: nasal congestion) Qty: 20 0RF albuterol sulfate 90 mcg/actuation HFA aerosol inhaler 2 inh inhalation Q4H PRN (Reason: shortness of breath or wheezing) Qty: 8.5 0RF no medications doxycycline hyclate 100 mg capsule 100 mg PO BID 10 Days Qty: 20 0RF Print Language: Azeri Instructions: Pharyngitis (ED) Referrals: JOHNSON KRAMER [Primary Care Provider, Family Practice] - 1 week Discharge Date/Time: 06/17/25 10:10
== END 2025-06-17 10:10 | disposition home or self-care (01) ==
PROVIDERS: Emergency Provider Student in an Organized Health Care Education/Training Program; PCP Nurse Practitioner Family
DX: J02.9 Acute pharyngitis, unspecified (principal)
CPT/HCPCS: 99283; J8540